=== PATIENT | female | born 1935 | race Caucasian/White ===

== ENCOUNTER → 2022-03-26 | Outpatient (CLI) | payer MEDICARE ==
[2022-03-26 10:08] LABS: African American GFR (CKD) >90 (>60 ml/min/1.73 sqM); Blood Urea Nitrogen 19 mg/dL (7-17); Non-African American GFR(CKD) 86 (>60 ml/min/1.73 sqM)
--- NOTE | 2022-03-26 11:42 | CT ---
EXAMINATION TYPE: CT urogram wo/w con CT DLP: 1294.1 mGycm, Automated exposure control for dose reduction was used. DATE OF EXAM: 03/26/2022 11:36 AM COMPARISON: None CLINICAL INDICATION:Female, 86 years old with history of R31.0 HEMATURIA; TECHNIQUE: Urogram with imaging of the abdomen and pelvis. Coronal and sagittal reformats were performed. 2D and 3D reconstructions are performed to assist visualization of the urinary tract on a separate workstat ion. Contrast used:100ml mL of Isovue 300 with IV Contrast, Oral contrast used: None. FINDINGS: GENITOURINARY: RIGHT KIDNEY AND URETER: No calculi. No hydronephrosis or hydroureter. No renal mass or other lesions . No urothelial lesions: no filling defect, dilation, stricture or wall thickening. LEFT KIDNEY AND URETER: No calculi. No hydronephrosis or hydroureter. No renal mass or other lesions. No urothelial lesions: no filling defect, dilation, stricture or wall thickening. URINARY BLADDER: There is downward shift of the urinary bladder through the pelvic floor. REPRODUCTIVE: Unremarkable. ABDOMEN LIVER: Scattered low-density areas likely representing cysts. GALLBLADDER AND BILE DUCTS: The gallbladder surgically absent. PANCREAS: Unremarkable. SPLEEN: Unremarkable. ADRENAL GLANDS: Unremarkable. STOMACH AND BOWEL: No evidence of bowel obstruction. Scattered clonic diverticula are present. PERITONEUM: No evidence of pneumoperitoneum, free fluid, or adenopathy. The pelvic floor demonstrate s laxity on sagittal imaging with the bladder extending below the pubococcygeal line approximately 1. 5 cm . VASCULATURE: No aortic aneurysm. Atherosclerosis of the arterial vasculature. MUSCULOSKELETAL: No acute osseous abnormalities. SOFT TISSUE/ABDOMINAL WALL: Unremarkable. LOWER CHEST: Streaky atelectasis seen within the lung bases. The heart is moderately enlarged for siz e with coronary artery atherosclerosis. IMPRESSION: 1. No evidence of urolithiasis or renal/urothelial neoplasm. 2. Pelvic floor laxity with bladder extending 1.5 cm below the pubococcygeal line. 3. Colonic diverticulosis. 4. Moderate atherosclerosis of the arterial vasculature.
== END | disposition home or self-care (01) ==
LOC: RADCTMAIN 09:24
PROVIDERS: ATTEND Urology
DX: I25.10 Atherosclerotic heart disease of native coronary artery without angina pectoris (principal); K57.30 Diverticulosis of large intestine without perforation or abscess without bleeding
CPT/HCPCS: 82565; 84520; 74178; 36415; 74400; Q9967

== ENCOUNTER 2022-04-24 16:06 | Emergency (ER) | payer MEDICARE ==
[2022-04-24 16:16] VITALS: RESP 18; TEMP 98.1
--- NOTE | 2022-04-24 16:56 | ED ---
General Adult HPI - General Chief complaint: GI Bleed Stated complaint: Weakness, SOB Time Seen by Provider: 04/24/22 16:13 Source: EMS Mode of arrival: EMS Limitations: no limitations - History of Present Illness Initial comments: This is an 86-year-old female with past medical history including a tractor fibrillation and [place] presents emergency department after a significant bloody bowel movement. The patient stated that she was walking around the hospital earlier today without any problems but went home answered to feel weak and had the sensation of going to the bathroom. The patient was weak to the point where she had to sit down and on the floor, the patient had a large bloody bowel movement. The patient was able to stand up secondary to weakness. The patient denied any lightheadedness or dizziness. The patient did state that she has had intermittent drops of blood in the toilet bowl since started [place] after previous CVA but stated that she did not have any large bowel movement. The patient did not complete of any other acute pain or complaints at this time and was resting in bed comfortably. - Related Data Home Medications Medication Instructions Recorded Confirmed Acetaminophen Tab [Tylenol] 325 mg PO Q6H PRN 04/24/22 04/24/22 Apixaban [Eliquis] 5 mg PO BID 04/24/22 04/24/22 Aspirin EC [Ecotrin Low Dose] 81 mg PO HS 04/24/22 04/24/22 Atorvastatin Calcium [Lipitor] 80 mg PO HS 04/24/22 04/24/22 Baclofen [Lioresal] 10 mg PO HS 04/24/22 04/24/22 Cyanocobalamin (Vitamin B-12) 1,000 mcg PO DAILY@1200 04/24/22 04/24/22 [Vitamin B-12] Donepezil [Aricept] 10 mg PO DAILY 04/24/22 04/24/22 Gabapentin [Neurontin] 100 mg PO BID 04/24/22 04/24/22 Hydrocortisone Cream 1 applic TOPICAL QID PRN 04/24/22 04/24/22 [Hydrocortisone 2.5% Cream] Levothyroxine Sodium [Synthroid] 50 mcg PO DAILY 04/24/22 04/24/22 Melatonin 3 mg PO HS 04/24/22 04/24/22 Metoprolol Tartrate [Lopressor] 50 mg PO BID 04/24/22 04/24/22 Mirabegron [Myrbetriq] 50 mg PO DAILY@1200 04/24/22 04/24/22 Sertraline [Zoloft] 25 mg PO DAILY 04/24/22 04/24/22 amLODIPine [Norvasc] 2.5 mg PO DAILY 04/24/22 04/24/22 lisinopriL [Zestril] 20 mg PO BID 04/24/22 04/24/22 metFORMIN HCL 1,000 mg PO BID-W/MEALS 04/24/22 04/24/22 Allergies Allergy/AdvReac Type Severity Reaction Status Date / Time No Known Allergies Allergy Verified 04/24/22 17:08 Review of Systems ROS Statement: Those systems with pertinent positive or pertinent negative responses have been documented in the HPI. ROS Other: All systems not noted in ROS Statement are negative. Past Medical History Past Medical History: CVA/TIA, Diabetes Mellitus, Hypertension, Thyroid Disorder Past Surgical History: No Surgical Hx Reported Smoking Status: Never smoker Past Alcohol Use History: None Reported Past Drug Use History: None Reported General Exam Limitations: no limitations General appearance: alert, in no apparent distress Head exam: Present: atraumatic, normocephalic Eye exam: Present: normal appearance, PERRL Pupils: Present: normal accommodation ENT exam: Present: normal exam, normal oropharynx, mucous membranes moist Neck exam: Present: normal inspection, full ROM Respiratory exam: Present: normal lung sounds bilaterally Cardiovascular Exam: Present: regular rate, normal rhythm, normal heart sounds GI/Abdominal exam: Present: soft, normal bowel sounds Rectal exam: Present: heme (+) stool Extremities exam: Present: normal inspection, full ROM Back exam: Present: normal inspection, full ROM Neurological exam: Present: alert, oriented X3, CN II-XII intact Psychiatric exam: Present: normal affect, normal mood Skin exam: Present: warm, dry Course Vital Signs 04/24/22 04/24/22 04/24/22 16:12 16:14 17:00 Temperature 98.1 F Pulse Rate 71 65 Respiratory 18 18 20 Rate Blood Pressure 127/67 127/67 123/61 O2 Sat by Pulse 94 L 94 L 96 Oximetry 04/24/22 18:00 Temperature Pulse Rate 69 Respiratory 18 Rate Blood Pressure 139/74 O2 Sat by Pulse 96 Oximetry EKG Findings - EKG Comments: EKG Findings:: An EKG was obtained and read by myself. This EKG showed a rate of 67, CT interval 164, QRS duration 137 and QTC of 488. This EKG showed a sinus rhythm with a right bundle branch block. There was some minor, less than 1 mm depression noted in V4 and V5 however denied any reciprocal changes noted. There were no ST segment elevations noted either. Medical Decision Making - Medical Decision Making The patient was seen and evaluated emergency department. Physical exam, the patient was resting in bed without any acute distress. Vital signs admission were stable and within normal limits. Laboratory workup was obtained that showed a stable hemoglobin. The remainder of the laboratory workup was within normal limits. The patient did have a large bloody bowel movement in the emergency department. Due to the patient having multiple large bloody bowel movements in the setting of a lower GI bleed with our request, the patient will require further treatment and evaluation by Neurology. Currently There is no GI On-Call and We Could Not Accept the Patient for Admission Here. The Patient's Family Did Request to Be Transferred to [facility]. The patient did require a COVID-19 test prior to transfer. The patient remained stable without any other acute pain or distress. It took several hours to obtain a callback from the [facility] transfer line and there was a bed that was found. The accepting physician, Dr. Hazel was contacted at 2022, however a bed was not established and accepted until be COVID-19 test was back which was at 2129. The patient was accepted for a direct admission to the hospital and did not require to be transferred to the emergency department at this time. The family was made aware of this and was agreeable to this plan. The patient was transferred via EMS in stable condition for her lower GI bleed. - Lab Data Result diagrams: 04/24/22 16:50 04/24/22 16:50 Lab Results 04/24/22 04/24/22 04/24/22 Range/Units 16:30 16:45 16:50 WBC 8.2 (3.8-10.6) k/uL RBC 4.26 (3.80-5.40) m/uL Hgb 12.7 (11.4-16.0) gm/dL Hct 37.6 (34.0-46.0) % MCV 88.2 (80.0-100.0) fL MCH 29.7 (25.0-35.0) pg MCHC 33.7 (31.0-37.0) g/dL RDW 13.9 (11.5-15.5) % Plt Count 243 (150-450) k/uL MPV 7.9 Neutrophils % 68 % Lymphocytes % 24 % Monocytes % 5 % Eosinophils % 1 % Basophils % 0 % Neutrophils # 5.6 (1.3-7.7) k/uL Lymphocytes # 2.0 (1.0-4.8) k/uL Monocytes # 0.4 (0-1.0) k/uL Eosinophils # 0.1 (0-0.7) k/uL Basophils # 0.0 (0-0.2) k/uL Sodium (137-145) mmol/L Potassium (3.5-5.1) mmol/L Chloride (98-107) mmol/L Carbon Dioxide (22-30) mmol/L Anion Gap mmol/L BUN (7-17) mg/dL Creatinine (0.52-1.04) mg/dL Est GFR (CKD-EPI)AfAm (>60 ml/min/1.73 sqM) Est GFR (CKD-EPI)NonAf (>60 ml/min/1.73 sqM) Glucose (74-99) mg/dL Calcium (8.4-10.2) mg/dL Magnesium (1.6-2.3) mg/dL Total Bilirubin (0.2-1.3) mg/dL AST (14-36) U/L ALT (4-34) U/L Alkaline Phosphatase (38-126) U/L Troponin I (0.000-0.034) ng/mL NT-Pro-B Natriuret Pep pg/mL Total Protein (6.3-8.2) g/dL Albumin (3.5-5.0) g/dL Lipase (23-300) U/L Stool Occult Blood (Negative) Coronavirus (PCR) (Not Detectd) Blood Type O Positive Blood Type Confirm O Positive Blood Type Recheck No Previous Record Bld Type Recheck Status CABO Indicated Antibody Screen NEGATIVE Spec Expiration Date 04/27/2022 - 234404/24/22 04/24/22 04/24/22 Range/Units 16:50 16:50 16:50 WBC (3.8-10.6) k/uL RBC (3.80-5.40) m/uL Hgb (11.4-16.0) gm/dL Hct (34.0-46.0) % MCV (80.0-100.0) fL MCH (25.0-35.0) pg MCHC (31.0-37.0) g/dL RDW (11.5-15.5) % Plt Count (150-450) k/uL MPV Neutrophils % % Lymphocytes % % Monocytes % % Eosinophils % % Basophils % % Neutrophils # (1.3-7.7) k/uL Lymphocytes # (1.0-4.8) k/uL Monocytes # (0-1.0) k/uL Eosinophils # (0-0.7) k/uL Basophils # (0-0.2) k/uL Sodium 136 L (137-145) mmol/L Potassium 3.9 (3.5-5.1) mmol/L Chloride 101 (98-107) mmol/L Carbon Dioxide 25 (22-30) mmol/L Anion Gap 10 mmol/L BUN 19 H (7-17) mg/dL Creatinine 0.62 (0.52-1.04) mg/dL Est GFR (CKD-EPI)AfAm >90 (>60 ml/min/1.73 sqM) Est GFR (CKD-EPI)NonAf 82 (>60 ml/min/1.73 sqM) Glucose 312 H (74-99) mg/dL Calcium 8.9 (8.4-10.2) mg/dL Magnesium 1.3 L (1.6-2.3) mg/dL Total Bilirubin 0.5 (0.2-1.3) mg/dL AST 16 (14-36) U/L ALT 17 (4-34) U/L Alkaline Phosphatase 97 (38-126) U/L Troponin I <0.012 (0.000-0.034) ng/mL NT-Pro-B Natriuret Pep 99 pg/mL Total Protein 5.9 L (6.3-8.2) g/dL Albumin 3.8 (3.5-5.0) g/dL Lipase 60 (23-300) U/L Stool Occult Blood (Negative) Coronavirus (PCR) (Not Detectd) Blood Type Blood Type Confirm Blood Type Recheck Bld Type Recheck Status Antibody Screen Spec Expiration Date 04/24/22 04/24/22 Range/Units 18:45 20:05 WBC (3.8-10.6) k/uL RBC (3.80-5.40) m/uL Hgb (11.4-16.0) gm/dL Hct (34.0-46.0) % MCV (80.0-100.0) fL MCH (25.0-35.0) pg MCHC (31.0-37.0) g/dL RDW (11.5-15.5) % Plt Count (150-450) k/uL MPV Neutrophils % % Lymphocytes % % Monocytes % % Eosinophils % % Basophils % % Neutrophils # (1.3-7.7) k/uL Lymphocytes # (1.0-4.8) k/uL Monocytes # (0-1.0) k/uL Eosinophils # (0-0.7) k/uL Basophils # (0-0.2) k/uL Sodium (137-145) mmol/L Potassium (3.5-5.1) mmol/L Chloride (98-107) mmol/L Carbon Dioxide (22-30) mmol/L Anion Gap mmol/L BUN (7-17) mg/dL Creatinine (0.52-1.04) mg/dL Est GFR (CKD-EPI)AfAm (>60 ml/min/1.73 sqM) Est GFR (CKD-EPI)NonAf (>60 ml/min/1.73 sqM) Glucose (74-99) mg/dL Calcium (8.4-10.2) mg/dL Magnesium (1.6-2.3) mg/dL Total Bilirubin (0.2-1.3) mg/dL AST (14-36) U/L ALT (4-34) U/L Alkaline Phosphatase (38-126) U/L Troponin I (0.000-0.034) ng/mL NT-Pro-B Natriuret Pep pg/mL Total Protein (6.3-8.2) g/dL Albumin (3.5-5.0) g/dL Lipase (23-300) U/L Stool Occult Blood Positive H (Negative) Coronavirus (PCR) Not Detected (Not Detectd) Blood Type Blood Type Confirm Blood Type Recheck Bld Type Recheck Status Antibody Screen Spec Expiration Date Critical Care Time Critical Care Time: Yes Total Critical Care Time: 32 Disposition Clinical Impression: Lower gastrointestinal bleed Disposition: OTHER INSTITUTION NOT DEFINED Condition: Stable Instructions (If sedation given, give patient instructions): Gastrointestinal Bleeding (ED) Is patient prescribed a controlled substance at d/c from ED?: No Referrals: Tristin Brennan MD [Primary Care Provider] - 1-2 days Time of Disposition: 21:30 - Out of Hospital Transfer - Req. Specs Out of Hospital Transfer - Requested Specifics: Other Non-Acute ([facility], Room # 443)
[2022-04-24 17:06] LABS: Basophils % (A) 0 %; Eosinophils # (A) 0.1 k/uL (0-0.7); Eosinophils % (A) 1 %; HCT 37.6 % (34.0-46.0); HGB 12.7 gm/dL (11.4-16.0); Lymphocytes % (A) 24 %; MCH 29.7 pg (25.0-35.0); MCHC 33.7 g/dL (31.0-37.0); MCV 88.2 fL (80.0-100.0); Mean Platelet Volume 7.9; Monocytes # (A) 0.4 k/uL (0-1.0); Monocytes % (A) 5 %; Neutrophils # (A) 5.6 k/uL (1.3-7.7); Neutrophils % (A) 68 %; Platelet Count 243 k/uL (150-450); RBC 4.26 m/uL (3.80-5.40); RDW 13.9 % (11.5-15.5); WBC 8.2 k/uL (3.8-10.6)
--- NOTE | 2022-04-24 17:07 | XR ---
EXAMINATION TYPE: XR chest 2V DATE OF EXAM: 04/24/2022 COMPARISON: 02/11/2010 HISTORY: Weakness. Short of breath TECHNIQUE: FINDINGS: There is no heart failure nor confluent pneumonic infiltrate. Costophrenic angles are clear . There are chest leads. Thoracic aorta is atheromatous. Bony thorax is intact. IMPRESSION: No active cardiopulmonary disease. Normal heart. No adverse change.
[2022-04-24 17:17] LABS: ALT 17 U/L (4-34); AST 16 U/L (14-36); African American GFR (CKD) >90 (>60 ml/min/1.73 sqM); Albumin 3.8 g/dL (3.5-5.0); Alkaline Phosphatase 97 U/L (38-126); Anion Gap 10 mmol/L; Blood Urea Nitrogen 19 mg/dL (7-17); Calcium 8.9 mg/dL (8.4-10.2); Carbon Dioxide 25 mmol/L (22-30); Chloride 101 mmol/L (98-107); Glucose 312 mg/dL (74-99); Lipase 60 U/L (23-300); Magnesium 1.3 mg/dL (1.6-2.3); Non-African American GFR(CKD) 82 (>60 ml/min/1.73 sqM); Potassium 3.9 mmol/L (3.5-5.1); Sodium 136 mmol/L (137-145); Total Bilirubin 0.5 mg/dL (0.2-1.3); Total Protein 5.9 g/dL (6.3-8.2)
--- NOTE | 2022-04-24 18:13 | CT ---
EXAMINATION TYPE: CT abdomen pelvis w con DATE OF EXAM: 04/24/2022 COMPARISON: 03/26/2022 HISTORY: general abd pain CT DLP: 744 mGycm Automated exposure control for dose reduction was used. CONTRAST: Performed with IV Contrast, patient injected with 100ml mL of Isovue 300. There are some patchy atelectasis at the lung bases. There are clips at the gastroesophageal junction . Heart appears enlarged. No pericardial effusion. No pleural effusion. There are multiple small hepa tic cysts that measure up to 1 cm. Spleen is intact. The bile ducts are not dilated. There are clips from cholecystectomy. No evidence of pancreatic mass. No evidence of a gastric mass. There is no adrenal mass. Kidneys of normal size and contour. There is normal contrast opacification of the kidneys. No hydronephrosis. Ureters are not dilated. Delayed images show normal renal excretio n. Abdominal aorta is atheromatous. There is no retroperitoneal adenopathy. Bladder distends smoothly . There is a pessary in the vagina. No inguinal hernia. No free fluid in the pelvis. No evidence of a pelvic mass. The lumbar vertebrae have normal alignment. There is vacuum disc from L2 to S1 with disc space narrow ing. No compression fracture. Bony pelvis is intact. The hip joints are intact. There is hypertrophic acetabular spurring. Sacroiliac joints are intact. Appendix not well seen. No sign of thickened appe ndix. There is no mesenteric edema. No ascites or free air. No sign of a bowel obstruction. IMPRESSION: No acute abnormality of the abdomen and pelvis. There is some mild interstitial density and atelectas is at the lung bases which is slightly increased compared to old exam.
[2022-04-24] MEDS: MAGNESIUM SULFATE-D5W PMX 1 GM in DEXTROSE/WATER 1 100ML.BAG IVPB SCH ×2 (19:26→20:51)
[2022-04-24 22:02] VITALS: BP 156/98; PULSE 70
== END 2022-04-24 22:00 | disposition other institution (70) ==
LOC: EC 16:06
DX: K92.2 Gastrointestinal hemorrhage, unspecified (principal); E11.9 Type 2 diabetes mellitus without complications; I10 Essential (primary) hypertension; E07.9 Disorder of thyroid, unspecified; Z79.82 Long term (current) use of aspirin; Z79.899 Other long term (current) drug therapy; Z79.890 Hormone replacement therapy; Z20.822 Contact with and (suspected) exposure to COVID-19; Z79.01 Long term (current) use of anticoagulants; Z86.73 Personal history of transient ischemic attack (TIA), and cerebral infarction without residual deficits
CPT/HCPCS: 99291; 96365; 36415; 93005; 86900; 86901; 83880; 80053; 83690; 83735; 84484; 85025; 86850; 82272; 87635; 71046; 74177; 96366; J3475; Q9967

== ENCOUNTER 2022-05-03 10:20 | Emergency (ER) | payer MEDICARE ==
--- NOTE | 2022-05-03 10:39 | ED ---
General Adult HPI - General Chief complaint: Altered Mental Status Stated complaint: lab recheck Time Seen by Provider: 05/03/22 10:20 Source: patient, family, EMS, RN notes reviewed, old records reviewed Mode of arrival: EMS Limitations: altered mental status - History of Present Illness Initial comments: This is an 86-year-old female presents emergency department because she had decreased responsiveness at home. According to EMS patient's at 69 years on Tuesday and she has this today. According to EMS patient would not answer or follow any commands even though the patient one time stated she didn't want to come and they felt out. Bring her in because they were not sure if she was altered not. Patient is able to answer my question very reluctantly and she states she does not want to be here. Patient denies any complaints and she states no one can help her because she wants to be with Bill which I assume is her . Patient denies chest pain or difficulty breathing patient denies fever patient denies cough patient denies any abdominal pain patient denies nausea vomiting diarrhea. - Related Data Home Medications Medication Instructions Recorded Confirmed Acetaminophen Tab [Tylenol] 325 mg PO Q6H PRN 04/24/22 04/24/22 Apixaban [Eliquis] 5 mg PO BID 04/24/22 04/24/22 Aspirin EC [Ecotrin Low Dose] 81 mg PO HS 04/24/22 04/24/22 Atorvastatin Calcium [Lipitor] 80 mg PO HS 04/24/22 04/24/22 Baclofen [Lioresal] 10 mg PO HS 04/24/22 04/24/22 Cyanocobalamin (Vitamin B-12) 1,000 mcg PO DAILY@1200 04/24/22 04/24/22 [Vitamin B-12] Donepezil [Aricept] 10 mg PO DAILY 04/24/22 04/24/22 Gabapentin [Neurontin] 100 mg PO BID 04/24/22 04/24/22 Hydrocortisone Cream 1 applic TOPICAL QID PRN 04/24/22 04/24/22 [Hydrocortisone 2.5% Cream] Levothyroxine Sodium [Synthroid] 50 mcg PO DAILY 04/24/22 04/24/22 Melatonin 3 mg PO HS 04/24/22 04/24/22 Metoprolol Tartrate [Lopressor] 50 mg PO BID 04/24/22 04/24/22 Mirabegron [Myrbetriq] 50 mg PO DAILY@1200 04/24/22 04/24/22 Sertraline [Zoloft] 25 mg PO DAILY 04/24/22 04/24/22 amLODIPine [Norvasc] 2.5 mg PO DAILY 04/24/22 04/24/22 lisinopriL [Zestril] 20 mg PO BID 04/24/22 04/24/22 metFORMIN HCL 1,000 mg PO BID-W/MEALS 04/24/22 04/24/22 Allergies Allergy/AdvReac Type Severity Reaction Status Date / Time No Known Allergies Allergy Verified 04/24/22 17:08 Review of Systems ROS Statement: Those systems with pertinent positive or pertinent negative responses have been documented in the HPI. ROS Other: All systems not noted in ROS Statement are negative. Past Medical History Past Medical History: CVA/TIA, Diabetes Mellitus, Hypertension, Thyroid Disorder History of Any Multi-Drug Resistant Organisms: None Reported Past Surgical History: No Surgical Hx Reported Past Psychological History: No Psychological Hx Reported Smoking Status: Never smoker Past Alcohol Use History: None Reported Past Drug Use History: None Reported General Exam - General Exam Comments Initial Comments: GENERAL: Patient is well-developed and well-nourished. Patient is nontoxic and well- hydrated and is in mild distress. ENT: Neck is soft and supple. No significant lymphadenopathy is noted. Oropharynx is clear. Moist mucous membranes. Neck has full range of motion without eliciting any pain. EYES: The sclera were anicteric and conjunctiva were pink and moist. Extraocular movements were intact and pupils were equal round and reactive to light. Eyelids were unremarkable. PULMONARY: Unlabored respirations. Good breath sounds bilaterally. No audible rales rhonchi or wheezing was noted. CARDIOVASCULAR: There is a regular rate and rhythm without any murmurs gallops or rubs. ABDOMEN: Soft and nontender with normal bowel sounds. SKIN: Skin is clear with no lesions or rashes and otherwise unremarkable. NEUROLOGIC: Patient is alert and oriented x3. Cranial nerves II through XII are grossly intact. Motor and sensory are also intact. Normal speech, volume and content. Symmetrical smile. MUSCULOSKELETAL: Normal extremities with adequate strength and full range of motion. LYMPHATICS: No significant lymphadenopathy is noted PSYCHIATRIC: Patient is very depressed and states that no one can help her she just wants to be with Bill Limitations: altered mental status Course Vital Signs 05/03/22 10:24 Temperature 98.1 F Pulse Rate 75 Respiratory 18 Rate Blood Pressure 183/92 O2 Sat by Pulse 97 Oximetry Medical Decision Making - Medical Decision Making CT of the brain was interpreted by me. CT of the brain shows no acute abnormality. EKG was interpreted by me. It shows a sinus rhythm at 74 bpm [place] interval is on a 74 QRS is 157 QT interval 448 QTC is 476 per patient's EKG shows no ST segment elevation or depression. Patient has a right bundle branch block. I will back into the room patient was back to her baseline according to family. She only complained of a headache. Patient's family is aware of her anemia and they are following up. - Lab Data Result diagrams: 05/03/22 10:50 05/03/22 10:50 Lab Results 05/03/22 05/03/22 Range/Units 10:50 10:50 WBC 7.0 (3.8-10.6) k/uL RBC 3.31 L (3.80-5.40) m/uL Hgb 9.4 L D (11.4-16.0) gm/dL Hct 28.6 L (34.0-46.0) % MCV 86.2 (80.0-100.0) fL MCH 28.4 (25.0-35.0) pg MCHC 33.0 (31.0-37.0) g/dL RDW 14.2 (11.5-15.5) % Plt Count 318 (150-450) k/uL MPV 7.5 Neutrophils % 70 % Lymphocytes % 22 % Monocytes % 5 % Eosinophils % 1 % Basophils % 0 % Neutrophils # 4.9 (1.3-7.7) k/uL Lymphocytes # 1.5 (1.0-4.8) k/uL Monocytes # 0.3 (0-1.0) k/uL Eosinophils # 0.1 (0-0.7) k/uL Basophils # 0.0 (0-0.2) k/uL Hypochromasia Slight Poikilocytosis Slight Sodium 137 (137-145) mmol/L Potassium 3.6 (3.5-5.1) mmol/L Chloride 104 (98-107) mmol/L Carbon Dioxide 30 (22-30) mmol/L Anion Gap 3 mmol/L BUN 11 (7-17) mg/dL Creatinine 0.49 L (0.52-1.04) mg/dL Est GFR (CKD-EPI)AfAm >90 (>60 ml/min/1.73 sqM) Est GFR (CKD-EPI)NonAf 88 (>60 ml/min/1.73 sqM) Glucose 157 H (74-99) mg/dL Calcium 8.8 (8.4-10.2) mg/dL Total Bilirubin 0.4 (0.2-1.3) mg/dL AST 17 (14-36) U/L ALT 14 (4-34) U/L Alkaline Phosphatase 105 (38-126) U/L Total Protein 6.0 L (6.3-8.2) g/dL Albumin 3.6 (3.5-5.0) g/dL Disposition Clinical Impression: Situational depression, Anemia, Cephalgia Disposition: HOME SELF-CARE Condition: Good Instructions (If sedation given, give patient instructions): Depression (ED) Is patient prescribed a controlled substance at d/c from ED?: No Referrals: Tristin Brennan MD [Primary Care Provider] - 1-2 days Time of Disposition: 12:00
[2022-05-03 11:08] LABS: Basophils % (A) 0 %; Eosinophils # (A) 0.1 k/uL (0-0.7); Eosinophils % (A) 1 %; HCT 28.6 % (34.0-46.0); Hypochromasia Slight; Lymphocytes # (A) 1.5 k/uL (1.0-4.8); Lymphocytes % (A) 22 %; MCH 28.4 pg (25.0-35.0); MCV 86.2 fL (80.0-100.0); Mean Platelet Volume 7.5; Monocytes # (A) 0.3 k/uL (0-1.0); Monocytes % (A) 5 %; Neutrophils # (A) 4.9 k/uL (1.3-7.7); Neutrophils % (A) 70 %; Platelet Count 318 k/uL (150-450); Poikilocytosis Slight; RBC 3.31 m/uL (3.80-5.40); RDW 14.2 % (11.5-15.5)
[2022-05-03 11:09] LABS: HGB 9.4 gm/dL (11.4-16.0)
[2022-05-03 11:11] LABS: ALT 14 U/L (4-34); AST 17 U/L (14-36); African American GFR (CKD) >90 (>60 ml/min/1.73 sqM); Albumin 3.6 g/dL (3.5-5.0); Alkaline Phosphatase 105 U/L (38-126); Anion Gap 3 mmol/L; Blood Urea Nitrogen 11 mg/dL (7-17); Calcium 8.8 mg/dL (8.4-10.2); Carbon Dioxide 30 mmol/L (22-30); Chloride 104 mmol/L (98-107); Glucose 157 mg/dL (74-99); Non-African American GFR(CKD) 88 (>60 ml/min/1.73 sqM); Potassium 3.6 mmol/L (3.5-5.1); Sodium 137 mmol/L (137-145); Total Bilirubin 0.4 mg/dL (0.2-1.3)
--- NOTE | 2022-05-03 11:27 | CT ---
EXAMINATION TYPE: CT brain wo con DATE OF EXAM: 05/03/2022 COMPARISON: None HISTORY: Altered mental status CT DLP: 1188.6 mGycm Automated exposure control for dose reduction was used. FINDINGS: Intracranial atherosclerotic changes. There is moderate generalized degenerative change. Diffuse low attenuation in the white matter is nonspecific but most typical remote white matter ischemia. More fo janae area seen in the right frontal parietal white matter. No acute hemorrhage or mass effect. No midl ine shift. Calvarium is intact with hyperostosis of the frontal bone. Craniocervical junction maintained. Partia lly empty sella turcica. Orbits are symmetric. Sinuses are clear. IMPRESSION: DEGENERATIVE AND NONSPECIFIC WHITE MATTER CHANGE WITH NO EVIDENCE OF ACUTE ISCHEMIA OR MASS EFFECT.
[2022-05-03] MEDS ORDERED: ACETAMINOPHEN TAB 500 MG TAB PO STA (12:09)
[2022-05-03 12:40] VITALS: BP 142/78; PULSE 78; RESP 20; TEMP 97.8
== END 2022-05-03 12:39 | disposition home or self-care (01) ==
LOC: EC 10:20
DX: F43.21 Adjustment disorder with depressed mood (principal); D64.9 Anemia, unspecified; R51.9 Headache, unspecified; Z86.73 Personal history of transient ischemic attack (TIA), and cerebral infarction without residual deficits; E11.9 Type 2 diabetes mellitus without complications; I10 Essential (primary) hypertension; E07.9 Disorder of thyroid, unspecified; Z79.82 Long term (current) use of aspirin; Z79.890 Hormone replacement therapy; Z79.84 Long term (current) use of oral hypoglycemic drugs; Z79.899 Other long term (current) drug therapy
CPT/HCPCS: 36415; 70450; 80053; 85025; 93005; 99285

== ENCOUNTER → 2022-08-20 | Outpatient (CLI) | payer MEDICARE ==
[2022-08-20 10:54] LABS: Chol/HDL Ratio 1.97 Ratio; LDL Cholesterol,Calculated 35.9 mg/dL (0.0-131.0); VLDL Calculation 18.34 mg/dL (5.00-40.00)
[2022-08-20 10:55] LABS: ALT 13 U/L (8-44); AST 12 U/L (13-35); African American GFR (CKD) 92.4 (60.0-200.0); Albumin 4.4 g/dL (3.8-4.9); Albumin/Globulin Ratio 1.83 (1.60-3.17); Alkaline Phosphatase 118 U/L (41-126); BUN/Creat Ratio 30.67 Ratio (12.00-20.00); Blood Urea Nitrogen 19.6 mg/dL (9.0-27.0); Carbon Dioxide 25.7 mmol/L (20.0-27.5); Chloride 101 mmol/L (96-109); Globulin 2.4 g/dL (1.6-3.3); Glucose 161 mg/dL (70-110); Non-African American GFR(CKD) 79.7 (60.0-200.0); Potassium 4.4 mmol/L (3.5-5.5); Sodium 139 mmol/L (135-145); Total Protein 6.8 g/dL (6.2-8.2)
== END | disposition home or self-care (01) ==
LOC: LABWHC1 07:31
PROVIDERS: ATTEND Nurse Practitioner Adult Health
DX: I10 Essential (primary) hypertension (principal); E78.2 Mixed hyperlipidemia
CPT/HCPCS: 36415; 80053; 80061

== ENCOUNTER 2022-10-13 07:04 | Inpatient (IN) | payer MEDICARE ==
[2022-10-13] MEDS ORDERED: ACETAMINOPHEN TAB 500 MG TAB PO STA (07:24)
[2022-10-13] MEDS ORDERED: SODIUM CHLORIDE 0.9% 1,000 ML IV STA ×2 (07:24)
[2022-10-13 07:46] LABS: Anisocytosis Moderate; Basophils % (A) 0 %; Eosinophils % (A) 0 %; HCT 26.1 % (34.0-46.0); HGB 7.7 gm/dL (11.4-16.0); Hypochromasia Marked; Lymphocytes % (A) 13 %; MCH 17.7 pg (25.0-35.0); MCHC 29.6 g/dL (31.0-37.0); MCV 59.9 fL (80.0-100.0); Mean Platelet Volume 6.7; Microcytosis Marked; Monocytes # (A) 0.5 k/uL (0-1.0); Monocytes % (A) 7 %; Neutrophils % (A) 77 %; Platelet Count 278 k/uL (150-450); Poikilocytosis Moderate; RBC 4.35 m/uL (3.80-5.40); RDW 20.5 % (11.5-15.5); WBC 7.7 k/uL (3.8-10.6)
[2022-10-13 07:56] LABS: Partial Thromboplastin Time 24.7 sec (22.0-30.0); Prothrombin Time 10.6 sec (9.0-12.0)
--- NOTE | 2022-10-13 07:57 | ED ---
Weakness HPI - General Chief complaint: Weakness Stated complaint: Weakness Time Seen by Provider: 10/13/22 07:15 Source: EMS Mode of arrival: EMS Limitations: no limitations - History of Present Illness Initial comments: 87-year-old female with past medical history of CVA, diabetes, hypertension and presents emergency Department with weakness. EMS provided majority of the history as the patient is a poor historian. Her son called EMS for weakness. States that she was having difficulty getting out of bed. Patient is fairly independent aside from her history of dementia. She has been coughing. Patient was found to have a fever of 101 by EMS. She has not taken anything for the fever as of yet. She is been coughing. Son has been having congestion. No nausea or vomiting. Continues to eat and drink without difficulty. No diarr hea. No black or bloody stools. No urinary complaints. She denies any chest pain. No other alleviating, precipitating or modifying factors - Related Data Home Medications Medication Instructions Recorded Confirmed Apixaban [Eliquis] 5 mg PO BID-W/MEALS 04/24/22 10/13/22 Baclofen [Lioresal] 10 mg PO HS 04/24/22 10/13/22 Cyanocobalamin (Vitamin B-12) 1,000 mcg PO DAILY@1200 04/24/22 10/13/22 [Vitamin B-12] Gabapentin [Neurontin] 100 mg PO BID-W/MEALS 04/24/22 10/13/22 Levothyroxine Sodium [Synthroid] 50 mcg PO AC-BRKFST 04/24/22 10/13/22 Melatonin 3 mg PO HS 04/24/22 10/13/22 Mirabegron [Myrbetriq] 50 mg PO DAILY@1200 04/24/22 10/13/22 Sertraline [Zoloft] 25 mg PO DAILY 04/24/22 10/13/22 Atorvastatin [Lipitor] 40 mg PO HS 10/13/22 10/13/22 Famotidine [Pepcid] 20 mg PO DAILY PRN 10/13/22 10/13/22 Metoprolol Tartrate [Lopressor] 25 mg PO BID 10/13/22 10/13/22 Sennosides [Senokot] 17.2 mg PO DAILY PRN 10/13/22 10/13/22 lisinopriL [Zestril] 5 mg PO DAILY 10/13/22 10/13/22 metFORMIN HCL 500 mg PO AC-BID 10/13/22 10/13/22 Previous Rx's Medication Instructions Recorded Cephalexin [Keflex] 500 mg PO QID #10 cap 10/15/22 Allergies Allergy/AdvReac Type Severity Reaction Status Date / Time No Known Allergies Allergy Verified 10/13/22 08:56 Review of Systems ROS Statement: Those systems with pertinent positive or pertinent negative responses have been documented in the HPI. ROS Other: All systems not noted in ROS Statement are negative. Past Medical History Past Medical History: CVA/TIA, Diabetes Mellitus, Hypertension, Thyroid Disorder History of Any Multi-Drug Resistant Organisms: None Reported Past Surgical History: No Surgical Hx Reported Past Psychological History: No Psychological Hx Reported Smoking Status: Never smoker Past Alcohol Use History: None Reported Past Drug Use History: None Reported General Exam Limitations: no limitations, altered mental status General appearance: alert, in no apparent distress Head exam: Present: atraumatic, normocephalic, normal inspection Eye exam: Present: normal appearance, PERRL, EOMI. Absent: scleral icterus, conjunctival injection, periorbital swelling ENT exam: Present: normal exam, mucous membranes moist Neck exam: Present: normal inspection. Absent: tenderness, meningismus, lymphadenopathy Respiratory exam: Present: normal lung sounds bilaterally. Absent: respiratory distress, wheezes, rales, rhonchi, stridor Cardiovascular Exam: Present: regular rate, normal rhythm, normal heart sounds. Absent: systolic murmur, diastolic murmur, rubs, gallop, clicks GI/Abdominal exam: Present: soft, normal bowel sounds. Absent: distended, tenderness, guarding, rebound, rigid Extremities exam: Present: normal inspection, full ROM, normal capillary refill. Absent: tenderness, pedal edema, joint swelling, calf tenderness Back exam: Present: normal inspection Neurological exam: Present: alert, oriented X3, CN II-XII intact Psychiatric exam: Present: normal affect, normal mood Skin exam: Present: warm, dry, intact, normal color. Absent: rash Course Vital Signs 10/13/22 10/13/22 10/13/22 07:09 08:20 11:00 Temperature 100.7 F H 98.4 F 99.3 F Pulse Rate 81 73 Respiratory 18 17 Rate Blood Pressure 157/76 129/65 O2 Sat by Pulse 91 L 99 Oximetry 10/13/22 12:35 Temperature Pulse Rate 79 Respiratory 18 Rate Blood Pressure 140/67 O2 Sat by Pulse 97 Oximetry EKG Findings - EKG Comments: EKG Findings:: EKG interpreted by me demonstrates sinus rhythm with rate of 89. SD interval 179. QRS 156. QTC 441. Right bundle-branch block. No ST segment elevations or depressions. Medical Decision Making - Medical Decision Making Was pt. sent in by a medical professional or institution ([facility], [facility], urgent care, hospital, or half-way...) When possible be specific @ -No Did you speak to anyone other than the patient for history (EMS, parent, family, police, friend...)? What history was obtained from this source @ -EMS provided history. Also spoke with patients son who states he has had a mild cough Did you review nursing and triage notes (agree or disagree)? Why? @ -I reviewed and agree with nursing and triage notes Were old charts reviewed (outside hosp., previous admission, EMS record, old EKG, old radiological studies, urgent care reports/EKG's, half-way records)? Report findings @ -No old charts were reviewed Differential Diagnosis (chest pain, altered mental status, abdominal pain women, abdominal pain men, vaginal bleeding, weakness, fever, dyspnea, syncope, headache, dizziness, GI bleed, back pain, seizure, CVA, palpatations, mental health, musculoskeletal)? @ -uti, influenza, covid, pneumonia EKG interpreted by me (3pts min.). @ -EKG interpreted by me X-rays interpreted by me (1pt min.). @ -Interpreted by me and negative for acute process CT interpreted by me (1pt min.). @ -None done U/S interpreted by me (1pt. min.). @ -None done What testing was considered but not performed or refused? (CT, X-rays, U/S, labs)? Why? @ -None What meds were considered but not given or refused? Why? @ -None Did you discuss the management of the patient with other professionals (professionals i.e. [facility], [facility], lab, RT, psych nurse, director of social media marketing, flake cutter operator, teacher, general service officer, bottle caser)? Give summary @ -Dicussed care with Dr. Young who will admit the patient Was smoking cessation discussed for >3mins.? @ -No Was critical care preformed (if so, how long)? @ -No Were there social determinants of health that impacted care today? How? (Homelessness, low income, unemployed, alcoholism, drug addiction, transportation, low edu. Level, literacy, decrease access to med. care, assisted, rehab)? @ -No Was there de-escalation of care discussed even if they declined (Discuss DNR or withdrawal of care, Hospice)? DNR status @ -No What co-morbidities impacted this encounter? (DM, HTN, Smoking, COPD, CAD, Cancer, CVA, ARF, Chemo, Hep., AIDS, mental health diagnosis, sleep apnea, morbid obesity)? @ - None Was patient admitted / discharged? Hospital course, mention meds given and route, prescriptions, significant lab abnormalities, going to OR and other pertinent info. @ -Upon arrival patient is placed into room 7. Thorough history and physical exam was performed. IV access established. laboratory studies were conducted. Patient anemic with hemoglobin of 7.7. Patient is positive for covid. Patient is given a dose of Decadron. Urinalysis is positive for nitrites and occasional bacteria and therefore is given a dose of Rocephin. Recommended admission. Spoke with Dr. young who accepted admission for the patient Undiagnosed new problem with uncertain prognosis? @ -Yes Drug Therapy requiring intensive monitoring for toxicity (Heparin, Nitro, Insu aric, Cardizem)? @ -No Were any procedures done? @ -No Diagnosis/symptom? @ -acute pyrexia, acute covid infection, chronic anemia Uncomplicated (without systemic symptoms) or Complicated (systemic symptoms)? @ -complicated Side effects of treatment? @ -No Exacerbation, Progression, or Severe Exacerbation? @ -No Poses a threat to life or bodily function? How? (Chest pain, USA, CT, pneumonia, PE, COPD, DKA, ARF, appy, cholecystitis, CVA, Diverticulitis, Homicidal, Suicid al, threat to staff... and all critical care pts) @ -No - Lab Data Result diagrams: 10/14/22 07:05 10/14/22 07:05 Lab Results 10/13/22 10/13/22 10/13/22 Range/Units 07:27 07:27 07:27 WBC 7.7 (3.8-10.6) k/uL RBC 4.35 (3.80-5.40) m/uL Hgb 7.7 L (11.4-16.0) gm/dL Hct 26.1 L (34.0-46.0) % MCV 59.9 L (80.0-100.0) fL MCH 17.7 L (25.0-35.0) pg MCHC 29.6 L (31.0-37.0) g/dL RDW 20.5 H (11.5-15.5) % Plt Count 278 (150-450) k/uL MPV 6.7 Neutrophils % 77 % Lymphocytes % 13 % Monocytes % 7 % Eosinophils % 0 % Basophils % 0 % Neutrophils # 6.0 (1.3-7.7) k/uL Lymphocytes # 1.0 (1.0-4.8) k/uL Monocytes # 0.5 (0-1.0) k/uL Eosinophils # 0.0 (0-0.7) k/uL Basophils # 0.0 (0-0.2) k/uL Hypochromasia Marked Poikilocytosis Moderate Anisocytosis Moderate Microcytosis Marked PT 10.6 (9.0-12.0) sec INR 1.0 (<1.2) APTT 24.7 (22.0-30.0) sec Sodium (137-145) mmol/L Potassium (3.5-5.1) mmol/L Chloride (98-107) mmol/L Carbon Dioxide (22-30) mmol/L Anion Gap mmol/L BUN (7-17) mg/dL Creatinine (0.52-1.04) mg/dL Est GFR (CKD-EPI)AfAm (>60 ml/min/1.73 sqM) Est GFR (CKD-EPI)NonAf (>60 ml/min/1.73 sqM) Glucose (74-99) mg/dL Plasma Lactic Acid Calvin (0.7-2.0) mmol/L Calcium (8.4-10.2) mg/dL Magnesium (1.6-2.3) mg/dL Iron (50-170) ug/dL TIBC (228-460) ug/dL % Saturation (12.00-45.00) Transferrin (204.0-354.0) mg/dL Ferritin (10.0-291.0) ng/mL Total Bilirubin (0.2-1.3) mg/dL AST (14-36) U/L ALT (4-34) U/L Alkaline Phosphatase (38-126) U/L Troponin I (0.000-0.034) ng/mL NT-Pro-B Natriuret Pep pg/mL Total Protein (6.3-8.2) g/dL Albumin (3.5-5.0) g/dL Urine Color Colorless Urine Appearance Cloudy H (Clear) Urine pH 6.0 (5.0-8.0) Ur Specific [place] 1.002 (1.001-1.035) Urine Protein Negative (Negative) Urine Glucose (UA) Negative (Negative) Urine Ketones Negative (Negative) Urine Blood Negative (Negative) Urine Nitrite Positive H (Negative) Urine Bilirubin Negative (Negative) Urine Urobilinogen <2.0 (<2.0) mg/dL Ur Leukocyte Esterase Trace H (Negative) Urine RBC 1 (0-5) /hpf Urine WBC 2 (0-5) /hpf Ur Squamous Epith Cells <1 (0-4) /hpf Urine Bacteria Occasional H (None) /hpf Urine Mucus Rare H (None) /hpf Influenza Type A (PCR) (Not Detectd) Influenza Type B (PCR) (Not Detectd) RSV (PCR) (Not Detectd) SARS-CoV-2 (PCR) (Not Detectd) 10/13/22 10/13/22 10/13/22 Range/Units 07:27 07:27 07:27 WBC (3.8-10.6) k/uL RBC (3.80-5.40) m/uL Hgb (11.4-16.0) gm/dL Hct (34.0-46.0) % MCV (80.0-100.0) fL MCH (25.0-35.0) pg MCHC (31.0-37.0) g/dL RDW (11.5-15.5) % Plt Count (150-450) k/uL MPV Neutrophils % % Lymphocytes % % Monocytes % % Eosinophils % % Basophils % % Neutrophils # (1.3-7.7) k/uL Lymphocytes # (1.0-4.8) k/uL Monocytes # (0-1.0) k/uL Eosinophils # (0-0.7) k/uL Basophils # (0-0.2) k/uL Hypochromasia Poikilocytosis Anisocytosis Microcytosis PT (9.0-12.0) sec INR (<1.2) APTT (22.0-30.0) sec Sodium 131 L (137-145) mmol/L Potassium 3.8 (3.5-5.1) mmol/L Chloride 95 L (98-107) mmol/L Carbon Dioxide 25 (22-30) mmol/L Anion Gap 11 mmol/L BUN 13 (7-17) mg/dL Creatinine 0.49 L (0.52-1.04) mg/dL Est GFR (CKD-EPI)AfAm >90 (>60 ml/min/1.73 sqM) Est GFR (CKD-EPI)NonAf 87 (>60 ml/min/1.73 sqM) Glucose 159 H (74-99) mg/dL Plasma Lactic Acid Calvin 1.3 (0.7-2.0) mmol/L Calcium 8.8 (8.4-10.2) mg/dL Magnesium 1.1 L (1.6-2.3) mg/dL Iron (50-170) ug/dL TIBC (228-460) ug/dL % Saturation (12.00-45.00) Transferrin (204.0-354.0) mg/dL Ferritin (10.0-291.0) ng/mL Total Bilirubin 0.5 (0.2-1.3) mg/dL AST 23 (14-36) U/L ALT 18 (4-34) U/L Alkaline Phosphatase 96 (38-126) U/L Troponin I <0.012 (0.000-0.034) ng/mL NT-Pro-B Natriuret Pep pg/mL Total Protein 6.1 L (6.3-8.2) g/dL Albumin 3.6 (3.5-5.0) g/dL Urine Color Urine Appearance (Clear) Urine pH (5.0-8.0) Ur Specific [place] (1.001-1.035) Urine Protein (Negative) Urine Glucose (UA) (Negative) Urine Ketones (Negative) Urine Blood (Negative) Urine Nitrite (Negative) Urine Bilirubin (Negative) Urine Urobilinogen (<2.0) mg/dL Ur Leukocyte Esterase (Negative) Urine RBC (0-5) /hpf Urine WBC (0-5) /hpf Ur Squamous Epith Cells (0-4) /hpf Urine Bacteria (None) /hpf Urine Mucus (None) /hpf Influenza Type A (PCR) (Not Detectd) Influenza Type B (PCR) (Not Detectd) RSV (PCR) (Not Detectd) SARS-CoV-2 (PCR) (Not Detectd) 10/13/22 10/13/22 10/13/22 Range/Units 07:27 07:27 07:27 WBC (3.8-10.6) k/uL RBC (3.80-5.40) m/uL Hgb (11.4-16.0) gm/dL Hct (34.0-46.0) % MCV (80.0-100.0) fL MCH (25.0-35.0) pg MCHC (31.0-37.0) g/dL RDW (11.5-15.5) % Plt Count (150-450) k/uL MPV Neutrophils % % Lymphocytes % % Monocytes % % Eosinophils % % Basophils % % Neutrophils # (1.3-7.7) k/uL Lymphocytes # (1.0-4.8) k/uL Monocytes # (0-1.0) k/uL Eosinophils # (0-0.7) k/uL Basophils # (0-0.2) k/uL Hypochromasia Poikilocytosis Anisocytosis Microcytosis PT (9.0-12.0) sec INR (<1.2) APTT (22.0-30.0) sec Sodium (137-145) mmol/L Potassium (3.5-5.1) mmol/L Chloride (98-107) mmol/L Carbon Dioxide (22-30) mmol/L Anion Gap mmol/L BUN (7-17) mg/dL Creatinine (0.52-1.04) mg/dL Est GFR (CKD-EPI)AfAm (>60 ml/min/1.73 sqM) Est GFR (CKD-EPI)NonAf (>60 ml/min/1.73 sqM) Glucose (74-99) mg/dL Plasma Lactic Acid Calvin (0.7-2.0) mmol/L Calcium (8.4-10.2) mg/dL Magnesium (1.6-2.3) mg/dL Iron 15 L (50-170) ug/dL TIBC 480 H (228-460) ug/dL % Saturation 3.17 L (12.00-45.00) Transferrin 343.0 (204.0-354.0) mg/dL Ferritin 9.0 L (10.0-291.0) ng/mL Total Bilirubin (0.2-1.3) mg/dL AST (14-36) U/L ALT (4-34) U/L Alkaline Phosphatase (38-126) U/L Troponin I (0.000-0.034) ng/mL NT-Pro-B Natriuret Pep 271 pg/mL Total Protein (6.3-8.2) g/dL Albumin (3.5-5.0) g/dL Urine Color Urine Appearance (Clear) Urine pH (5.0-8.0) Ur Specific [place] (1.001-1.035) Urine Protein (Negative) Urine Glucose (UA) (Negative) Urine Ketones (Negative) Urine Blood (Negative) Urine Nitrite (Negative) Urine Bilirubin (Negative) Urine Urobilinogen (<2.0) mg/dL Ur Leukocyte Esterase (Negative) Urine RBC (0-5) /hpf Urine WBC (0-5) /hpf Ur Squamous Epith Cells (0-4) /hpf Urine Bacteria (None) /hpf Urine Mucus (None) /hpf Influenza Type A (PCR) Not Detected (Not Detectd) Influenza Type B (PCR) Not Detected (Not Detectd) RSV (PCR) Not Detected (Not Detectd) SARS-CoV-2 (PCR) Detected A (Not Detectd) Disposition Clinical Impression: COVID-19, Weakness, Anemia Disposition: ADMITTED IP TO THIS HOSP Is patient prescribed a controlled substance at d/c from ED?: No Time of Disposition: 10:00 Decision to Admit Reason: Admit from EC Decision Date: 10/13/22 Decision Time: 10:00
[2022-10-13 08:07] LABS: ALT 18 U/L (4-34); AST 23 U/L (14-36); African American GFR (CKD) >90 (>60 ml/min/1.73 sqM); Albumin 3.6 g/dL (3.5-5.0); Alkaline Phosphatase 96 U/L (38-126); Anion Gap 11 mmol/L; Blood Urea Nitrogen 13 mg/dL (7-17); Calcium 8.8 mg/dL (8.4-10.2); Carbon Dioxide 25 mmol/L (22-30); Chloride 95 mmol/L (98-107); Glucose 159 mg/dL (74-99); Magnesium 1.1 mg/dL (1.6-2.3); Non-African American GFR(CKD) 87 (>60 ml/min/1.73 sqM); Potassium 3.8 mmol/L (3.5-5.1); Sodium 131 mmol/L (137-145); Total Bilirubin 0.5 mg/dL (0.2-1.3); Total Protein 6.1 g/dL (6.3-8.2)
--- NOTE | 2022-10-13 08:31 | XR ---
EXAMINATION TYPE: XR chest 2V DATE OF EXAM: 10/13/2022 8:20 AM COMPARISON: Chest radiographs from 04/24/2022 TECHNIQUE: XR chest 2V Frontal and lateral views of the chest. CLINICAL INDICATION:Female, 87 years old with history of Weakness; FINDINGS: Lungs/Pleura: There is no evidence of pleural effusion, focal consolidation, or pneumothorax. Chroni c senescent parenchymal change. Pulmonary vascularity: Unremarkable. Heart/mediastinum: Cardiomediastinal silhouette is enlarged and stable. Atherosclerotic calcificatio ns are seen in the aorta. Musculoskeletal: No acute osseous pathology. IMPRESSION: Chronic changes without evidence for acute process.
[2022-10-13] MEDS ORDERED: ACETAMINOPHEN TAB 325 MG TAB PO PRN (10:02)
[2022-10-13] MEDS ORDERED: IBUPROFEN 400 MG TAB PO PRN (10:02)
[2022-10-13] MEDS ORDERED: NALOXONE 0.4 MG/ML 1 ML VIAL IV PRN (10:02)
[2022-10-13] MEDS: DEXAMETHASONE SOD PHOSPHATE 10 MG/ML 1 ML VIAL IVP SCH (10:34)
[2022-10-13] MEDS ORDERED: SENNOSIDES 8.6 MG TAB PO PRN (10:57)
[2022-10-13] MEDS ORDERED: FAMOTIDINE 20 MG TAB PO PRN (10:57)
[2022-10-13] MEDS ORDERED: LACTULOSE 20 GM/30 ML CUP PO PRN (10:58)
[2022-10-13] MEDS ORDERED: ONDANSETRON 4 MG/2 ML VIAL IVP PRN (10:58)
[2022-10-13] MEDS ORDERED: CALCIUM CARBONATE 500 MG CHEWABLE PO PRN (10:58)
[2022-10-13] MEDS ORDERED: LORazepam 0.5 MG TAB PO PRN (10:58)
[2022-10-13] MEDS ORDERED: DEXTROSE 50% SYRINGE 50 ML IVP PRN ×2 (11:00)
[2022-10-13] MEDS: Mirabegron [Myrbetriq] 50 MG Tab.Er.24h PO SCH (12:21)
[2022-10-13] MEDS: CYANOCOBALAMIN 500 MCG TAB PO SCH (12:29)
[2022-10-13 12:30] LABS: Glucose,Whole Blood 158 mg/dL (70-110)
[2022-10-13] MEDS: APIXABAN 5 MG TAB PO SCH ×2 (12:30→17:01)
[2022-10-13] MEDS: SERTRALINE 25 MG TAB PO SCH (12:30)
[2022-10-13] MEDS: GABAPENTIN 100 MG CAP PO SCH ×2 (12:30→17:01)
[2022-10-13] MEDS: INSULIN ASPART (NovoLOG) 100 UNIT/ML VIAL SQ SCH ×2 (12:33→17:02)
[2022-10-13 13:40] LABS: Appearance,Urine Cloudy (Clear); Bacteria,Urine Occasional /hpf; Bilirubin,Urine Negative (Negative); Blood,Urine Negative (Negative); Color,Urine Colorless; Glucose,Urine (UA) Negative (Negative); Ketones,Urine Negative (Negative); Leukocyte Esterase,Urine Trace (Negative); Mucus,Urine Rare /hpf; Nitrite,Urine Positive (Negative); Protein,Urine Negative (Negative); RBC,Urine 1 /hpf (0-5); Specific Gravity,Urine 1.002 (1.001-1.035); Squamous Epithelial Cell,Urine <1 /hpf (0-4); Urobilinogen,Urine <2.0 mg/dL (<2.0); WBC,Urine 2 /hpf (0-5)
[2022-10-13] MEDS ORDERED: cefTRIAXone IN SWFI 1,000 MG/10 ML SYRINGE IVP STA (15:55)
--- NOTE | 2022-10-13 16:09 | P.HPIM ---
History of Present Illness H&P Date: 10/13/22 Chief Complaint: Cough short of breath This is a pleasant 87-year-old patient, follows Dr. Tristin Brennan. Chronic stable medical conditions include diabetes, hypertension, hypothyroid, urinary incontinence, depression, peripheral neuropathy, GERD. Patient does live alone but is frequented by his son Juarez. Patient normally independent. Found to be weak tired. Fever cough short of breath. Headache. No diarrhea. Had a fever of 101 documented by the EMS. Tired and rundown. Patient does test is positive in the ER. Patient is accompanied by both the sons in the ER. Review of systems: GEN.: Fever and chills EYES: None HEENT: Decreased hearing NECK: None RESPIRATORY: [As above CARDIOVASCULAR: None GASTROINTESTINAL: None GENITOURINARY: Urinary incontinence MUSCULOSKELETAL: Joint pains LYMPHATICS: None HEMATOLOGICAL: None PSYCHIATRY: None NEUROLOGICAL: None Past medical history to include: Hypothyroid, diabetes type 2, depression and anxiety, urinary incontinence, essential hypertension, peripheral neuropathy, hyperlipidemia, GERD, possible A. fib Social history: No smoking. No alcohol. Lives alone. Son Juarez drops in very often. Physical examination: VITAL SIGNS: 101 in the EMS, 81, 18, 157 with 76, 91% room air GENERAL: BMI 22.6, reclining in bed awake tired. EYES: Pupils equal. Conjunctiva normal. HEENT: External appearance of nose and ears normal, oral cavity grossly normal. NECK: JVD not raised; masses not palpable. HEART: First and second heart sounds are normal; no edema. LUNGS:[ Respiratory rate increased; occasional crackles. ABDOMEN: Soft, nontender, liver spleen not palpable, no masses palpable. PSYCH: Alert and oriented x3; mood and affect normal. MUSCULOSKELETAL:No Clubbing/cyanosis;muscles-grossly intact. OA NEUROLOGICAL: Cranial nerves grossly intact; no facial asymmetry, power and sensation grossly intact. LYMPHATICS: No lymph nodes palpable in the axilla and neck INVESTIGATIONS, reviewed in the clinical context: White count 7.7 hemoglobin 7.7 platelets 278 sodium 131 potassium 3.8 BUN 13 creatinine 0.49 UA positive for nitrite, leukoesterase COVID-19 PCR: Detected EKG tracing personally reviewed by me-normal sinus rhythm. Right bundle-branch block. Some ST-T wave changes. Chest x-ray film personally reviewed by me-some scanty infiltrates Assessment and plan: -Acute COVID 19 pneumonitis causing hypoxia Dexamethasone. Vitamin C. Vitamin D. Patient only on eliquis. -Acute hypoxic respiratory failure from COVID-19 FiO2 to keep the pulse ox above 94%. 91% on presentation -Vitamin B-12 deficiency Vitamin B12 supplementation -Paroxysmal atrial fibrillation, currently in sinus rhythm Eliquis -GERD Pepcid when necessary -Hyperlipidemia Lipitor 40 mg daily at bedtime -Peripheral neuropathy Neurontin 100 mg twice a day -Essential hypertension Zestril 5 mg daily, Lopressor 25 mg twice a day, -Chronic urinary incontinence Myrbetriq -Depression and anxiety not otherwise specified Zoloft for 25 mg day -Diabetes mellitus type 2 on oral hypoglycemic Metformin 5 mg twice a day -Hypothyroid Synthroid 50 g a day -Primary osteoarthritis Tylenol as needed -DO NOT RESUSCITATE per patient Past Medical History Past Medical History: CVA/TIA, Diabetes Mellitus, Hypertension, Thyroid Disorder History of Any Multi-Drug Resistant Organisms: None Reported Past Surgical History: No Surgical Hx Reported Past Psychological History: No Psychological Hx Reported Smoking Status: Never smoker Past Alcohol Use History: None Reported Past Drug Use History: None Reported Medications and Allergies Home Medications Medication Instructions Recorded Confirmed Type Apixaban [Eliquis] 5 mg PO BID-W/MEALS 04/24/22 10/13/22 History Baclofen [Lioresal] 10 mg PO HS 04/24/22 10/13/22 History Cyanocobalamin (Vitamin B-12) 1,000 mcg PO DAILY@1200 04/24/22 10/13/22 History [Vitamin B-12] Gabapentin [Neurontin] 100 mg PO BID-W/MEALS 04/24/22 10/13/22 History Levothyroxine Sodium [Synthroid] 50 mcg PO AC-BRKFST 04/24/22 10/13/22 History Melatonin 3 mg PO HS 04/24/22 10/13/22 History Mirabegron [Myrbetriq] 50 mg PO DAILY@1200 04/24/22 10/13/22 History Sertraline [Zoloft] 25 mg PO DAILY 04/24/22 10/13/22 History Atorvastatin [Lipitor] 40 mg PO HS 10/13/22 10/13/22 History Famotidine [Pepcid] 20 mg PO DAILY PRN 10/13/22 10/13/22 History Metoprolol Tartrate [Lopressor] 25 mg PO BID 10/13/22 10/13/22 History Sennosides [Senokot] 17.2 mg PO DAILY PRN 10/13/22 10/13/22 History lisinopriL [Zestril] 5 mg PO DAILY 10/13/22 10/13/22 History metFORMIN HCL 500 mg PO AC-BID 10/13/22 10/13/22 History Allergies Allergy/AdvReac Type Severity Reaction Status Date / Time No Known Allergies Allergy Verified 10/13/22 08:56 Physical Exam Vitals: Vital Signs Temp Pulse Resp BP Pulse Ox 10/13/22 12:35 79 18 140/67 97 10/13/22 11:00 99.3 F 73 17 129/65 99 10/13/22 08:20 98.4 F 10/13/22 07:09 100.7 F H 81 18 157/76 91 L Intake and Output 10/13/22 10/13/22 10/13/22 06:59 14:59 22:59 Other: Weight 63.503 kg Results CBC & Chem 7: 10/13/22 07:27 10/13/22 07:27 Labs: Abnormal Lab Results - Last 24 Hours (Table) 10/13/22 10/13/22 10/13/22 Range/Units 07:27 07:27 07:27 Hgb 7.7 L (11.4-16.0) gm/dL Hct 26.1 L (34.0-46.0) % MCV 59.9 L (80.0-100.0) fL MCH 17.7 L (25.0-35.0) pg MCHC 29.6 L (31.0-37.0) g/dL RDW 20.5 H (11.5-15.5) % Sodium 131 L (137-145) mmol/L Chloride 95 L (98-107) mmol/L Creatinine 0.49 L (0.52-1.04) mg/dL Glucose 159 H (74-99) mg/dL POC Glucose (mg/dL) (70-110) mg/dL Magnesium 1.1 L (1.6-2.3) mg/dL Total Protein 6.1 L (6.3-8.2) g/dL Urine Appearance Cloudy H (Clear) Urine Nitrite Positive H (Negative) Ur Leukocyte Esterase Trace H (Negative) Urine Bacteria Occasional H (None) /hpf Urine Mucus Rare H (None) /hpf SARS-CoV-2 (PCR) (Not Detectd) 10/13/22 10/13/22 Range/Units 07:27 12:28 Hgb (11.4-16.0) gm/dL Hct (34.0-46.0) % MCV (80.0-100.0) fL MCH (25.0-35.0) pg MCHC (31.0-37.0) g/dL RDW (11.5-15.5) % Sodium (137-145) mmol/L Chloride (98-107) mmol/L Creatinine (0.52-1.04) mg/dL Glucose (74-99) mg/dL POC Glucose (mg/dL) 158 H (70-110) mg/dL Magnesium (1.6-2.3) mg/dL Total Protein (6.3-8.2) g/dL Urine Appearance (Clear) Urine Nitrite (Negative) Ur Leukocyte Esterase (Negative) Urine Bacteria (None) /hpf Urine Mucus (None) /hpf SARS-CoV-2 (PCR) Detected A (Not Detectd) Thrombosis Risk Factor Assmnt - Choose All That Apply Any of the Below Risk Factors Present?: Yes Each Risk Factor Represents 3 Points: Age 75 years or older Thrombosis Risk Factor Assessment Total Risk Factor Score: 3 Thrombosis Risk Factor Assessment Level: Moderate Risk
[2022-10-13 16:56] LABS: Glucose,Whole Blood 297 mg/dL (70-110)
[2022-10-13] MEDS: CEPHALEXIN 500 MG CAP PO SCH ×2 (17:02→20:49)
[2022-10-13] MEDS: metFORMIN 500 MG TAB PO SCH (17:02)
[2022-10-13] MEDS: MAGNESIUM OXIDE 400 MG TAB PO SCH (17:02)
[2022-10-13] MEDS: ATORVASTATIN 40 MG TAB PO SCH (20:49)
[2022-10-13] MEDS: METOPROLOL TARTRATE 25 MG TAB PO SCH (20:49)
[2022-10-13] MEDS: BACLOFEN 10 MG TAB PO SCH (20:49)
[2022-10-13] MEDS: MELATONIN 3 MG TABLET PO SCH (20:49)
[2022-10-13 21:01] LABS: Glucose,Whole Blood 229 mg/dL (70-110)
[2022-10-13 21:08] LABS: % Iron Saturation 3.17 (12.00-45.00)
[2022-10-14 05:54] LABS: Glucose,Whole Blood 115 mg/dL (70-110)
[2022-10-14] MEDS: INSULIN ASPART (NovoLOG) 100 UNIT/ML VIAL SQ SCH ×3 (06:18→17:15)
[2022-10-14] MEDS: GABAPENTIN 100 MG CAP PO SCH ×2 (08:13→17:16)
[2022-10-14] MEDS: LEVOTHYROXINE 50 MCG TAB PO SCH (08:13)
[2022-10-14] MEDS: CEPHALEXIN 500 MG CAP PO SCH ×4 (08:13→21:32)
[2022-10-14] MEDS: APIXABAN 5 MG TAB PO SCH ×2 (08:13→17:16)
[2022-10-14] MEDS: SERTRALINE 25 MG TAB PO SCH (08:13)
[2022-10-14] MEDS: MAGNESIUM OXIDE 400 MG TAB PO SCH ×2 (08:14→21:32)
[2022-10-14] MEDS: lisinopriL 5 MG TAB PO SCH (08:14)
[2022-10-14] MEDS: metFORMIN 500 MG TAB PO SCH ×2 (08:14→17:15)
[2022-10-14] MEDS: METOPROLOL TARTRATE 25 MG TAB PO SCH ×2 (08:14→21:32)
[2022-10-14] MEDS: DEXAMETHASONE SOD PHOSPHATE 10 MG/ML 1 ML VIAL IVP SCH (08:14)
[2022-10-14 11:05] LABS: Glucose,Whole Blood 179 mg/dL (70-110)
[2022-10-14 11:08] LABS: HCT 27.8 % (37.2-46.3); HGB 7.5 g/dL (12.0-15.0); MCH 16.7 pg (27.0-32.0); MCV 62.1 fL (80.0-97.0); Mean Platelet Volume 9.1 fL (9.5-12.2); NRBC Per 100 WBC 0 /100 WBCS (0.0-0.0); Platelet Count 320 X 10*3/uL (140-440); RBC 4.48 X 10*6/uL (4.10-5.20); RDW 23.4 % (11.5-14.5); WBC 6.68 X 10*3/uL (4.50-10.00)
[2022-10-14 11:51] LABS: Basophils # (A) 0.03 X 10*3/uL (0.00-0.10); Basophils % (A) 0.4 %; Eosinophils # (A) 0.16 X 10*3/uL (0.04-0.35); Eosinophils % (A) 2.4 %; Immature Grans, Automated 0.3 %; Lymphocytes # (A) 1.36 X 10*3/uL (0.90-5.00); Lymphocytes % (A) 20.4 %; Monocytes # (A) 0.62 X 10*3/uL (0.20-1.00); Monocytes % (A) 9.3 %; Neutrophils # (A) 4.49 X 10*3/uL (1.80-7.70); Neutrophils % (A) 67.2 %
[2022-10-14 11:52] LABS: Acanthocytes 2+; Anisocytosis (M) 2+; Elliptocytes 2+; Microcytosis (M) 3+; Schistocytes 2+
[2022-10-14] MEDS: CYANOCOBALAMIN 500 MCG TAB PO SCH (12:12)
[2022-10-14] MEDS: Mirabegron [Myrbetriq] 50 MG Tab.Er.24h PO SCH (12:17)
[2022-10-14 12:19] LABS: African American GFR (CKD) 96.5 (60.0-200.0); Anion Gap 10.8 mmol/L (10.00-18.00); BUN/Creat Ratio 16.59 Ratio (12.00-20.00); Blood Urea Nitrogen 9.3 mg/dL (9.0-27.0); Calcium 8.7 mg/dL (8.7-10.3); Carbon Dioxide 24.4 mmol/L (20.0-27.5); Non-African American GFR(CKD) 83.3 (60.0-200.0); Potassium 3.5 mmol/L (3.5-5.5)
[2022-10-14 16:40] LABS: Glucose,Whole Blood 316 mg/dL (70-110)
--- NOTE | 2022-10-14 20:06 | P.PN ---
Progress Note - Text Progress Note Date: 10/14/22 Chief Complaint: Cough short of breath This is a pleasant 87-year-old patient, follows Dr. Tristin Brennan. Chronic stable medical conditions include diabetes, hypertension, hypothyroid, urinary incontinence, depression, peripheral neuropathy, GERD. Patient does live alone but is frequented by his son Juarez. Patient normally independent. Found to be weak tired. Fever cough short of breath. Headache. No diarrhea. Had a fever of 101 documented by the EMS. Tired and rundown. Patient does test is positive in the ER. Patient is accompanied by both the sons in the ER. Admitted with COVID 19 pneumonitis, acute hypoxic respiratory failure. UTI. Started on Keflex, dexamethasone, oxygen October 14: Sitting edge of the bed. Breathing a bit better. No fever. Some cough. Some shortness of breath. Appetite better. Add incentive spirometry Past medical history to include: Hypothyroid, diabetes type 2, depression and anxiety, urinary incontinence, essential hypertension, peripheral neuropathy, hyperlipidemia, GERD, possible A. fib Social history: No smoking. No alcohol. Lives alone. Son Juarez drops in very often. Physical examination: VITAL SIGNS: 101 in the EMS, 81, 18, 157 with 76, 91% room air GENERAL: BMI 22.6, reclining in bed awake tired. EYES: Pupils equal. Conjunctiva normal. HEENT: External appearance of nose and ears normal, oral cavity grossly normal. NECK: JVD not raised; masses not palpable. HEART: First and second heart sounds are normal; no edema. LUNGS:[ Respiratory rate increased; occasional crackles. ABDOMEN: Soft, nontender, liver spleen not palpable, no masses palpable. PSYCH: Alert and oriented x3; mood and affect normal. MUSCULOSKELETAL:No Clubbing/cyanosis;muscles-grossly intact. OA NEUROLOGICAL: Cranial nerves grossly intact; no facial asymmetry, power and sensation grossly intact. LYMPHATICS: No lymph nodes palpable in the axilla and neck INVESTIGATIONS, reviewed in the clinical context: White count 7.7 hemoglobin 7.7 platelets 278 sodium 131 potassium 3.8 BUN 13 creatinine 0.49 UA positive for nitrite, leukoesterase COVID-19 PCR: Detected EKG tracing personally reviewed by me-normal sinus rhythm. Right bundle-branch block. Some ST-T wave changes. Chest x-ray film personally reviewed by me-some scanty infiltrates Assessment and plan: -Acute COVID 19 pneumonitis causing hypoxia Dexamethasone. Vitamin C. Vitamin D. Patient only on eliquis. -Acute hypoxic respiratory failure from COVID-19 FiO2 to keep the pulse ox above 94%. 91% on presentation -Vitamin B-12 deficiency Vitamin B12 supplementation -Paroxysmal atrial fibrillation, currently in sinus rhythm Eliquis -GERD Pepcid when necessary -Hyperlipidemia Lipitor 40 mg daily at bedtime -Peripheral neuropathy Neurontin 100 mg twice a day -Essential hypertension Zestril 5 mg daily, Lopressor 25 mg twice a day, -Chronic urinary incontinence Myrbetriq -Depression and anxiety not otherwise specified Zoloft for 25 mg day -Diabetes mellitus type 2 on oral hypoglycemic Metformin 500 mg twice a day -Hypothyroid Synthroid 50 g a day -Primary osteoarthritis Tylenol as needed -DO NOT RESUSCITATE per patient.
[2022-10-14 20:50] LABS: Glucose,Whole Blood 178 mg/dL (70-110)
[2022-10-14] MEDS: BACLOFEN 10 MG TAB PO SCH (21:32)
[2022-10-14] MEDS: MELATONIN 3 MG TABLET PO SCH (21:32)
[2022-10-14] MEDS: ATORVASTATIN 40 MG TAB PO SCH (21:32)
[2022-10-14 23:11] LABS: Appearance,Urine Clear (Clear); Bilirubin,Urine Negative (Negative); Blood,Urine Negative (Negative); Color,Urine Light Yellow; Glucose,Urine (UA) 3+ (Negative); Ketones,Urine Negative (Negative); Leukocyte Esterase,Urine Negative (Negative); Nitrite,Urine Negative (Negative); Protein,Urine Negative (Negative); Urobilinogen,Urine <2.0 mg/dL (<2.0)
[2022-10-15 02:17] VITALS: PULSE 65
[2022-10-15 06:17] LABS: Glucose,Whole Blood 127 mg/dL (70-110)
[2022-10-15] MEDS: APIXABAN 5 MG TAB PO SCH (06:28)
[2022-10-15] MEDS: GABAPENTIN 100 MG CAP PO SCH (06:28)
[2022-10-15] MEDS: LEVOTHYROXINE 50 MCG TAB PO SCH (06:28)
[2022-10-15] MEDS: INSULIN ASPART (NovoLOG) 100 UNIT/ML VIAL SQ SCH ×2 (06:28→12:04)
[2022-10-15] MEDS: metFORMIN 500 MG TAB PO SCH (06:28)
[2022-10-15 07:30] VITALS: BP 160/76; RESP 16; TEMP 97.5
[2022-10-15] MEDS: CEPHALEXIN 500 MG CAP PO SCH ×2 (08:09→12:04)
[2022-10-15] MEDS: lisinopriL 5 MG TAB PO SCH (08:09)
[2022-10-15] MEDS: METOPROLOL TARTRATE 25 MG TAB PO SCH (08:10)
[2022-10-15] MEDS: MAGNESIUM OXIDE 400 MG TAB PO SCH (08:10)
[2022-10-15] MEDS: SERTRALINE 25 MG TAB PO SCH (08:10)
[2022-10-15] MEDS ORDERED: dexAMETHasone 2 MG TAB PO SCH (09:00)
[2022-10-15 11:12] LABS: Glucose,Whole Blood 195 mg/dL (70-110)
[2022-10-15] MEDS: Mirabegron [Myrbetriq] 50 MG Tab.Er.24h PO SCH (12:01)
[2022-10-15] MEDS: CYANOCOBALAMIN 500 MCG TAB PO SCH (12:04)
--- NOTE | 2022-10-15 19:41 | P.DS ---
Providers Date of admission: 10/13/22 10:02 Expected date of discharge: 10/15/22 Attending physician: Kalia Stevens Primary care physician: Tristin Brennan [facility] Course: Chief Complaint: Cough short of breath This is a pleasant 87-year-old patient, follows Dr. Tristin Brennan. Chronic stable medical conditions include diabetes, hypertension, hypothyroid, urinary incontinence, depression, peripheral neuropathy, GERD. Patient does live alone but is frequented by his son Juarez. Patient normally independent. Found to be weak tired. Fever cough short of breath. Headache. No diarrhea. Had a fever of 101 documented by the EMS. Tired and rundown. Patient does test is positive in the ER. Patient is accompanied by both the sons in the ER. Admitted with COVID 19 pneumonitis, acute hypoxic respiratory failure. UTI. Started on Keflex, dexamethasone, oxygen October 14: Sitting edge of the bed. Breathing a bit better. No fever. Some cough. Some shortness of breath. Appetite better. Add incentive spirometry October 15: D much better. Breathing better. Eating fair. Participation walk around the room with a walker. Bit tired but able to get around. Able to also independently code the bathroom. Discussed with the patient. Discussion and discharge planning more than 35 minutes Past medical history to include: Hypothyroid, diabetes type 2, depression and anxiety, urinary incontinence, essential hypertension, peripheral neuropathy, hyperlipidemia, GERD, possible A. fib Social history: No smoking. No alcohol. Lives alone. Son Juarez drops in very often. Physical examination: VITAL SIGNS: 97.5, a 65, 16, 160-76, 92% room air GENERAL: BMI 22.6, a bit of tremor comfortable EYES: Pupils equal. Conjunctiva normal. HEENT: External appearance of nose and ears normal, oral cavity grossly normal. NECK: JVD not raised; masses not palpable. HEART: First and second heart sounds are normal; no edema. LUNGS:[ Respiratory rate normal; lungs clear. ABDOMEN: Soft, nontender, liver spleen not palpable, no masses palpable. PSYCH: Alert and oriented x3; mood and affect normal. MUSCULOSKELETAL:No Clubbing/cyanosis;muscles-grossly intact. OA k INVESTIGATIONS, reviewed in the clinical context: White count 7.7 hemoglobin 7.7 platelets 278 sodium 131 potassium 3.8 BUN 13 creatinine 0.49 UA positive for nitrite, leukoesterase COVID-19 PCR: Detected EKG tracing personally reviewed by me-normal sinus rhythm. Right bundle-branch block. Some ST-T wave changes. Chest x-ray film personally reviewed by me-some scanty infiltrates Assessment and plan: -Acute COVID 19 pneumonitis causing hypoxia: Improved Dexamethasone. Vitamin C. Vitamin D. on eliquis. -Acute hypoxic respiratory failure from COVID-19: Better -Vitamin B-12 deficiency Vitamin B12 supplementation -Paroxysmal atrial fibrillation, currently in sinus rhythm Eliquis -GERD Pepcid when necessary -Hyperlipidemia Lipitor 40 mg daily at bedtime -Peripheral neuropathy Neurontin 100 mg twice a day -Essential hypertension Zestril 5 mg daily, Lopressor 25 mg twice a day, -Chronic urinary incontinence Myrbetriq -Depression and anxiety not otherwise specified Zoloft for 25 mg day -Diabetes mellitus type 2 on oral hypoglycemic Metformin 500 mg twice a day -Hypothyroid Synthroid 50 g a day -Primary osteoarthritis Tylenol as needed -DO NOT RESUSCITATE per patient. Disposition: Home Plan - Discharge Summary Discharge Rx Participant: No New Discharge Prescriptions: New Cephalexin [Keflex] 500 mg PO QID #10 cap Continue Cyanocobalamin (Vitamin B-12) [Vitamin B-12] 1,000 mcg PO DAILY@1200 Levothyroxine Sodium [Synthroid] 50 mcg PO AC-BRKFST Gabapentin [Neurontin] 100 mg PO BID-W/MEALS Sennosides [Senokot] 17.2 mg PO DAILY PRN PRN Reason: Constipation metFORMIN HCL 500 mg PO AC-BID Famotidine [Pepcid] 20 mg PO DAILY PRN PRN Reason: gerd Sertraline [Zoloft] 25 mg PO DAILY Mirabegron [Myrbetriq] 50 mg PO DAILY@1200 Melatonin 3 mg PO HS Apixaban [Eliquis] 5 mg PO BID-W/MEALS Baclofen [Lioresal] 10 mg PO HS Metoprolol Tartrate [Lopressor] 25 mg PO BID lisinopriL [Zestril] 5 mg PO DAILY Atorvastatin [Lipitor] 40 mg PO HS Discharge Medication List Apixaban [Eliquis] 5 mg PO BID-W/MEALS 04/24/22 [History] Baclofen [Lioresal] 10 mg PO HS 04/24/22 [History] Cyanocobalamin (Vitamin B-12) [Vitamin B-12] 1,000 mcg PO DAILY@1200 04/24/22 [History] Gabapentin [Neurontin] 100 mg PO BID-W/MEALS 04/24/22 [History] Levothyroxine Sodium [Synthroid] 50 mcg PO AC-BRKFST 04/24/22 [History] Melatonin 3 mg PO HS 04/24/22 [History] Mirabegron [Myrbetriq] 50 mg PO DAILY@1200 04/24/22 [History] Sertraline [Zoloft] 25 mg PO DAILY 04/24/22 [History] Atorvastatin [Lipitor] 40 mg PO HS 10/13/22 [History] Famotidine [Pepcid] 20 mg PO DAILY PRN 10/13/22 [History] Metoprolol Tartrate [Lopressor] 25 mg PO BID 10/13/22 [History] Sennosides [Senokot] 17.2 mg PO DAILY PRN 10/13/22 [History] lisinopriL [Zestril] 5 mg PO DAILY 10/13/22 [History] metFORMIN HCL 500 mg PO AC-BID 10/13/22 [History] Cephalexin [Keflex] 500 mg PO QID #10 cap 10/15/22 [Rx] Follow up Appointment(s)/Referral(s): Home Health,[facility] [NON-STAFF] - As Needed Tristin Brennan MD [Primary Care Provider] - 1-2 days (office will call with appointment time) Patient Instructions/Handouts: Weakness (DC), Anemia (DC), COVID-19 (Coronavirus Disease 2019) (DC), Social Distancing Guidelines for COVID-19 (DC) Discharge Disposition: HOME WITH HOME HEALTH SERVICES
== END 2022-10-15 12:56 | disposition home health service (06) | DRG 177 ==
LOC: EC 07:04 → 4SSUR 10:02
PROVIDERS: ADMIT Hospitalist; ATTEND Hospitalist
PROC: 3E0F7SF Introduction of Other Gas into Respiratory Tract, Via Natural or Artificial Opening (ICD-10-PCS; principal; 2022-10-13)
DX: U07.1 COVID-19 (principal); J12.82 Pneumonia due to coronavirus disease 2019; J96.01 Acute respiratory failure with hypoxia; N39.0 Urinary tract infection, site not specified; R53.1 Weakness; D64.9 Anemia, unspecified; E78.5 Hyperlipidemia, unspecified; E11.42 Type 2 diabetes mellitus with diabetic polyneuropathy; I10 Essential (primary) hypertension; E03.9 Hypothyroidism, unspecified; F41.8 Other specified anxiety disorders; F32.A Depression, unspecified; I45.10 Unspecified right bundle-branch block; R32 Unspecified urinary incontinence; K21.9 Gastro-esophageal reflux disease without esophagitis; E53.8 Deficiency of other specified B group vitamins; I48.0 Paroxysmal atrial fibrillation; M19.91 Primary osteoarthritis, unspecified site; Z66 Do not resuscitate; Z79.01 Long term (current) use of anticoagulants; Z79.84 Long term (current) use of oral hypoglycemic drugs; Z79.890 Hormone replacement therapy; Z79.899 Other long term (current) drug therapy; Z86.73 Personal history of transient ischemic attack (TIA), and cerebral infarction without residual deficits
CPT/HCPCS: 36415; 51702; 71046; 80048; 80053; 81001; 81003; 82728; 83540; 83550; 83605; 83735; 83880; 84484; 85025; 85610; 85730; 87040; 87636; 93005; 94760; 96361; 96374; 99285

== ENCOUNTER 2023-01-22 17:28 | Observation (INO) | payer MEDICARE ==
--- NOTE | 2023-01-22 18:33 | ED ---
General Adult HPI - General Chief complaint: Urogenital Stated complaint: WEAKNESS/UTI Time Seen by Provider: 01/22/23 17:53 Source: patient, family Mode of arrival: ambulatory Limitations: altered mental status (Dementia versus delirium) - History of Present Illness Initial comments: This patient is an 87-year-old woman who is brought to have evaluation for fatigue, generalized weakness, inability to ambulate. Most of the history from family, who states that when the patient has been like this in the past there has been urinary tract infection. She was diagnosed with that by her primary physician, and started Keflex yesterday. They did not note fevers. They do not note focal weakness. Patient denies pain. -: days(s) Severity scale (1-10): 0 Consistency: constant Improves with: none Worsens with: none Associated Symptoms: weakness Treatments Prior to Arrival: other (Keflex) - Related Data Home Medications Medication Instructions Recorded Confirmed Apixaban [Eliquis] 5 mg PO AC-BID 04/24/22 01/22/23 Baclofen [Lioresal] 10 mg PO HS 04/24/22 01/22/23 Cyanocobalamin (Vitamin B-12) 1,000 mcg PO DAILY@1200 04/24/22 01/22/23 [Vitamin B-12] Mirabegron [Myrbetriq] 50 mg PO DAILY@1200 04/24/22 01/22/23 Atorvastatin [Lipitor] 40 mg PO HS 10/13/22 01/22/23 Metoprolol Tartrate [Lopressor] 25 mg PO Q12H 10/13/22 01/22/23 Cholecalciferol [Vitamin D3 (25 50 mcg PO DAILY@1200 01/22/23 01/22/23 Mcg = 1000 Iu)] Previous Rx's Medication Instructions Recorded Acetaminophen Tab [Tylenol] 650 mg PO Q6HR PRN tab 01/26/23 Lisinopril-Hctz 20-12.5 mg 1 each PO BID #60 tab 01/26/23 [Zestoretic 20-12.5] Magnesium Oxide [Mag-Ox] 400 mg PO BID #20 tab 01/26/23 PARoxetine [Paxil] 10 mg PO DAILY #30 tab 01/26/23 metFORMIN HCL 1,000 mg PO BID #60 tablet 01/26/23 traZODone HCL [Desyrel] 50 mg PO HS #30 tab 01/26/23 Allergies Allergy/AdvReac Type Severity Reaction Status Date / Time No Known Allergies Allergy Verified 01/22/23 20:10 Review of Systems ROS Statement: Those systems with pertinent positive or pertinent negative responses have been documented in the HPI. ROS Other: All systems not noted in ROS Statement are negative. Limitations: ROS unobtainable due to patients medical condition Constitutional: Reports: weakness. Denies: fever Respiratory: Denies: cough, dyspnea Cardiovascular: Denies: chest pain, syncope Gastrointestinal: Denies: abdominal pain, vomiting, diarrhea Genitourinary: Denies: dysuria Musculoskeletal: Denies: back pain Skin: Denies: rash Neurological: Reports: confusion. Denies: headache, weakness Past Medical History Past Medical History: CVA/TIA, Diabetes Mellitus, Hypertension, Thyroid Disorder History of Any Multi-Drug Resistant Organisms: None Reported Past Surgical History: No Surgical Hx Reported Past Psychological History: No Psychological Hx Reported Smoking Status: Never smoker Past Alcohol Use History: None Reported Past Drug Use History: None Reported General Exam Limitations: no limitations, altered mental status General appearance: in no apparent distress Head exam: Present: atraumatic, normocephalic Eye exam: Present: normal appearance. Absent: scleral icterus, conjunctival injection ENT exam: Present: mucous membranes dry Neck exam: Present: normal inspection. Absent: tenderness, meningismus Respiratory exam: Present: normal lung sounds bilaterally. Absent: respiratory distress, wheezes, rales, rhonchi, stridor Cardiovascular Exam: Present: regular rate, normal rhythm, normal heart sounds. Absent: systolic murmur, diastolic murmur, rubs, gallop GI/Abdominal exam: Present: soft. Absent: distended, tenderness, guarding, rebound, mass Extremities exam: Present: normal inspection, normal capillary refill. Absent: pedal edema Back exam: Absent: CVA tenderness (R), CVA tenderness (L) Neurological exam: Present: alert, CN II-XII intact. Absent: oriented X3 (Patient is oriented to person and was able to recognize she is in health care setting. Disoriented to date.), motor sensory deficit Skin exam: Present: warm, dry, intact, normal color Course Vital Signs 01/22/23 01/22/23 01/22/23 17:45 20:00 21:00 Temperature 97.6 F Pulse Rate 86 77 87 Respiratory 18 24 20 Rate Blood Pressure 169/88 155/83 183/96 O2 Sat by Pulse 95 96 95 Oximetry 01/22/23 22:28 Temperature Pulse Rate 100 Respiratory 20 Rate Blood Pressure 183/96 O2 Sat by Pulse 95 Oximetry EKG Findings - EKG Results: EKG: interpreted by ERMD, sinus rhythm (With PVCs, rate 79 bpm) - Blocks, [place], Hypertrophy, ST Abn: AV and intraventricular conduction: right bundle branch block (fixed/intermittent, complete/incomplete) QRS axis and voltage: right axis deviation (+90 to +180) Medical Decision Making - Medical Decision Making The patient had chest x-ray which I interpreted as being negative for acute infiltrate, pneumothorax, congestive heart failure Was pt. sent in by a medical professional or institution ([facility], RENEWABLE ENERGY ENGINEER, urgent care, hospital, or penitentiary...) When possible be specific @ -[No] Did you speak to anyone other than the patient for history (EMS, parent, family, police, friend...)? What history was obtained from this source @ -[No] Did you review nursing and triage notes (agree or disagree)? Why? @ -[I reviewed and agree with nursing and triage notes] Were old charts reviewed (outside hosp., previous admission, EMS record, old EKG, old radiological studies, urgent care reports/EKG's, penitentiary records)? Report findings @ -[No old charts were reviewed] Differential Diagnosis (chest pain, altered mental status, abdominal pain women, abdominal pain men, vaginal bleeding, weakness, fever, dyspnea, syncope, headache, dizziness, GI bleed, back pain, seizure, CVA, palpatations, mental health, musculoskeletal)? @ -[Differential Weakness: Hypoglycemia, shock, sepsis, hyponatremia, anemia, infection, MT, ETOH, adverse medicine reaction, overdose, stroke, this is not meant to be an all-inclusive list. EKG interpreted by me (3pts min.). @ -[As above] X-rays interpreted by me (1pt min.). @ -[I interpreted as above CT interpreted by me (1pt min.). @ -[None done] U/S interpreted by me (1pt. min.). @ -[None done] What testing was considered but not performed or refused? (CT, X-rays, U/S, labs)? Why? @ -[None] What meds were considered but not given or refused? Why? @ -[None] Did you discuss the management of the patient with other professionals (professionals i.e. , PA, RENEWABLE ENERGY ENGINEER, lab, RT, psych nurse, social service worker, chain link fence installer, teacher, hydrographical technical officer, rn field case manager)? Give summary @ -[No] Was smoking cessation discussed for >3mins.? @ -[No] Was critical care preformed (if so, how long)? @ -[No] Were there social determinants of health that impacted care today? How? (Homelessness, low income, unemployed, alcoholism, drug addiction, transportation, low edu. Level, literacy, decrease access to med. care, group home, rehab)? @ -[No] Was there de-escalation of care discussed even if they declined (Discuss DNR or withdrawal of care, Hospice)? DNR status @ -[No] What co-morbidities impacted this encounter? (DM, HTN, Smoking, COPD, CAD, Cancer, CVA, ARF, Chemo, Hep., AIDS, mental health diagnosis, sleep apnea, morbid obesity)? @ -[None] Was patient admitted / discharged? Hospital course, mention meds given and route, prescriptions, significant lab abnormalities, going to OR and other pertinent info. @ -[This patient is an 87-year-old woman brought with weakness and fatigue. Family states that she is not getting around and they're not able to care for her. The patient's initial workup does reveal some degree of anemia. There does not this point appear to be sepsis or infectious process going on. The patient not able ambulate in the department therefore will be admitted with consideration to rehab placement. Undiagnosed new problem with uncertain prognosis? @ -[At this point the generalized weakness and fatigue is of uncertain etiology, though dementia may be contributing factor Drug Therapy requiring intensive monitoring for toxicity (Heparin, Nitro, Insulin, Cardizem)? @ -[No] Were any procedures done? @ -[No] Diagnosis/symptom? @ -[Acute generalized weakness and fatigue Anemia Acute, or Chronic, or Acute on Chronic? @ -Acute Uncomplicated (without systemic symptoms) or Complicated (systemic symptoms)? @ -[Uncomplicated Side effects of treatment? @ -[No] Exacerbation, Progression, or Severe Exacerbation? @ -[No] Poses a threat to life or bodily function? How? (Chest pain, USA, MT, pneumonia, PE, COPD, DKA, ARF, appy, cholecystitis, CVA, Diverticulitis, Homicidal, Suicidal, threat to staff... and all critical care pts) @ -[Undetermined at time of admission - Lab Data Result diagrams: 01/22/23 18:52 01/22/23 18:52 Lab Results 01/22/23 01/22/23 01/22/23 Range/Units 18:36 18:52 18:52 WBC 10.1 (3.8-10.6) k/uL RBC 4.74 (3.80-5.40) m/uL Hgb 8.7 L (11.4-16.0) gm/dL Hct 29.2 L (34.0-46.0) % MCV 61.6 L (80.0-100.0) fL MCH 18.3 L (25.0-35.0) pg MCHC 29.7 L (31.0-37.0) g/dL RDW 19.1 H (11.5-15.5) % Plt Count 335 (150-450) k/uL MPV 6.7 Neutrophils % 71 % Lymphocytes % 20 % Monocytes % 6 % Eosinophils % 1 % Basophils % 0 % Neutrophils # 7.2 (1.3-7.7) k/uL Lymphocytes # 2.1 (1.0-4.8) k/uL Monocytes # 0.7 (0-1.0) k/uL Eosinophils # 0.1 (0-0.7) k/uL Basophils # 0.0 (0-0.2) k/uL Hypochromasia Marked Poikilocytosis Moderate Anisocytosis Slight Microcytosis Marked Sodium 132 L (137-145) mmol/L Potassium 3.5 (3.5-5.1) mmol/L Chloride 98 (98-107) mmol/L Carbon Dioxide 26 (22-30) mmol/L Anion Gap 8 mmol/L BUN 16 (7-17) mg/dL Creatinine 0.49 L (0.52-1.04) mg/dL Est GFR (CKD-EPI)AfAm >90 (>60 ml/min/1.73 sqM) Est GFR (CKD-EPI)NonAf 87 (>60 ml/min/1.73 sqM) Glucose 139 H (74-99) mg/dL Plasma Lactic Acid Calvin (0.7-2.0) mmol/L Calcium 9.0 (8.4-10.2) mg/dL Magnesium 1.3 L (1.6-2.3) mg/dL Total Bilirubin 0.5 (0.2-1.3) mg/dL AST 19 (14-36) U/L ALT 15 (4-34) U/L Alkaline Phosphatase 110 (38-126) U/L Troponin I (0.000-0.034) ng/mL Total Protein 6.3 (6.3-8.2) g/dL Albumin 3.5 (3.5-5.0) g/dL TSH (0.350-5.500) UIU/ML Urine Color Yellow Urine Appearance Clear (Clear) Urine pH 5.0 (5.0-8.0) Ur Specific [place] 1.022 (1.001-1.035) Urine Protein Trace H (Negative) Urine Glucose (UA) Negative (Negative) Urine Ketones 1+ H (Negative) Urine Blood Trace H (Negative) Urine Nitrite Negative (Negative) Urine Bilirubin Negative (Negative) Urine Urobilinogen 2.0 (<2.0) mg/dL Ur Leukocyte Esterase Negative (Negative) Urine RBC <1 (0-5) /hpf Urine WBC 1 (0-5) /hpf Ur Squamous Epith Cells <1 (0-4) /hpf Urine Mucus Rare H (None) /hpf 01/22/23 01/22/23 01/22/23 Range/Units 18:52 18:52 18:52 WBC (3.8-10.6) k/uL RBC (3.80-5.40) m/uL Hgb (11.4-16.0) gm/dL Hct (34.0-46.0) % MCV (80.0-100.0) fL MCH (25.0-35.0) pg MCHC (31.0-37.0) g/dL RDW (11.5-15.5) % Plt Count (150-450) k/uL MPV Neutrophils % % Lymphocytes % % Monocytes % % Eosinophils % % Basophils % % Neutrophils # (1.3-7.7) k/uL Lymphocytes # (1.0-4.8) k/uL Monocytes # (0-1.0) k/uL Eosinophils # (0-0.7) k/uL Basophils # (0-0.2) k/uL Hypochromasia Poikilocytosis Anisocytosis Microcytosis Sodium (137-145) mmol/L Potassium (3.5-5.1) mmol/L Chloride (98-107) mmol/L Carbon Dioxide (22-30) mmol/L Anion Gap mmol/L BUN (7-17) mg/dL Creatinine (0.52-1.04) mg/dL Est GFR (CKD-EPI)AfAm (>60 ml/min/1.73 sqM) Est GFR (CKD-EPI)NonAf (>60 ml/min/1.73 sqM) Glucose (74-99) mg/dL Plasma Lactic Acid Calvin 0.9 (0.7-2.0) mmol/L Calcium (8.4-10.2) mg/dL Magnesium (1.6-2.3) mg/dL Total Bilirubin (0.2-1.3) mg/dL AST (14-36) U/L ALT (4-34) U/L Alkaline Phosphatase (38-126) U/L Troponin I <0.012 (0.000-0.034) ng/mL Total Protein (6.3-8.2) g/dL Albumin (3.5-5.0) g/dL TSH 0.622 (0.350-5.500) UIU/ML Urine Color Urine Appearance (Clear) Urine pH (5.0-8.0) Ur Specific [place] (1.001-1.035) Urine Protein (Negative) Urine Glucose (UA) (Negative) Urine Ketones (Negative) Urine Blood (Negative) Urine Nitrite (Negative) Urine Bilirubin (Negative) Urine Urobilinogen (<2.0) mg/dL Ur Leukocyte Esterase (Negative) Urine RBC (0-5) /hpf Urine WBC (0-5) /hpf Ur Squamous Epith Cells (0-4) /hpf Urine Mucus (None) /hpf Disposition Clinical Impression: Weakness, Anemia, Hypomagnesemia Disposition: ADMITTED IP TO THIS HOSP
[2023-01-22 18:52] LABS: Appearance,Urine Clear (Clear); Bilirubin,Urine Negative (Negative); Blood,Urine Trace (Negative); Color,Urine Yellow; Glucose,Urine (UA) Negative (Negative); Ketones,Urine 1+ (Negative); Leukocyte Esterase,Urine Negative (Negative); Mucus,Urine Rare /hpf; Nitrite,Urine Negative (Negative); Protein,Urine Trace (Negative); RBC,Urine <1 /hpf (0-5); Specific Gravity,Urine 1.022 (1.001-1.035); Squamous Epithelial Cell,Urine <1 /hpf (0-4); WBC,Urine 1 /hpf (0-5)
[2023-01-22 19:21] LABS: Anisocytosis Slight; Basophils % (A) 0 %; Eosinophils # (A) 0.1 k/uL (0-0.7); Eosinophils % (A) 1 %; HCT 29.2 % (34.0-46.0); HGB 8.7 gm/dL (11.4-16.0); Hypochromasia Marked; Lymphocytes # (A) 2.1 k/uL (1.0-4.8); Lymphocytes % (A) 20 %; MCH 18.3 pg (25.0-35.0); MCHC 29.7 g/dL (31.0-37.0); MCV 61.6 fL (80.0-100.0); Mean Platelet Volume 6.7; Microcytosis Marked; Monocytes # (A) 0.7 k/uL (0-1.0); Monocytes % (A) 6 %; Neutrophils # (A) 7.2 k/uL (1.3-7.7); Neutrophils % (A) 71 %; Platelet Count 335 k/uL (150-450); Poikilocytosis Moderate; RBC 4.74 m/uL (3.80-5.40); RDW 19.1 % (11.5-15.5); WBC 10.1 k/uL (3.8-10.6)
[2023-01-22 19:27] LABS: ALT 15 U/L (4-34); AST 19 U/L (14-36); African American GFR (CKD) >90 (>60 ml/min/1.73 sqM); Albumin 3.5 g/dL (3.5-5.0); Alkaline Phosphatase 110 U/L (38-126); Anion Gap 8 mmol/L; Blood Urea Nitrogen 16 mg/dL (7-17); Carbon Dioxide 26 mmol/L (22-30); Chloride 98 mmol/L (98-107); Glucose 139 mg/dL (74-99); Magnesium 1.3 mg/dL (1.6-2.3); Non-African American GFR(CKD) 87 (>60 ml/min/1.73 sqM); Potassium 3.5 mmol/L (3.5-5.1); Sodium 132 mmol/L (137-145); Total Bilirubin 0.5 mg/dL (0.2-1.3); Total Protein 6.3 g/dL (6.3-8.2)
--- NOTE | 2023-01-22 21:04 | XR ---
EXAMINATION TYPE: XR chest 2V DATE OF EXAM: 01/22/2023 COMPARISON: 10/13/2022 HISTORY: 87-year-old female with generalized weakness TECHNIQUE: AP and lateral views FINDINGS: Heart mildly enlarged. Apical scarring calcifications throughout the breasts. Tortuous/ectatic thorac ic aorta. Mild interstitial prominence is unchanged. No consolidation or pleural effusion. IMPRESSION: Mild cardiomegaly. Chronic changes without acute process seen.
[2023-01-22] MEDS ORDERED: NALOXONE 0.4 MG/ML 1 ML VIAL IV PRN (21:25)
[2023-01-22] MEDS: SODIUM CHLORIDE 0.9% 1,000 ML IV SCH (21:49)
[2023-01-22] MEDS ORDERED: KETOROLAC 15 MG/ML 1 ML VIAL IVP STA (22:04)
[2023-01-23] MEDS ORDERED: Mirabegron [Myrbetriq] 50 MG Tab.Er.24h PO SCH (12:00)
[2023-01-23] MEDS ORDERED: GABAPENTIN 100 MG CAP PO SCH (12:30)
[2023-01-23] MEDS ORDERED: DEXTROSE 50% SYRINGE 50 ML IVP PRN ×2 (12:32)
[2023-01-23] MEDS ORDERED: SERTRALINE 25 MG TAB PO SCH (13:00)
[2023-01-23 13:04] LABS: Glucose,Whole Blood 164 mg/dL (70-110)
[2023-01-23] MEDS: lisinopriL 5 MG TAB PO SCH (14:07)
[2023-01-23] MEDS: metFORMIN 500 MG TAB PO SCH ×2 (14:07→18:26)
[2023-01-23] MEDS: METOPROLOL TARTRATE 25 MG TAB PO SCH ×2 (14:07→21:27)
[2023-01-23] MEDS: INSULIN ASPART (NovoLOG) 100 UNIT/ML VIAL SQ SCH ×2 (14:09→18:26)
[2023-01-23] MEDS: PARoxetine 10 MG TAB PO SCH (14:09)
--- NOTE | 2023-01-23 16:01 | P.HPIM ---
History of Present Illness H&P Date: 01/23/23 Chief Complaint: Weakness 87-year-old patient, follows with Dr. Tristin Brennan. Chronic stable medical conditions include diabetes, hypertension, hypothyroid. Patient is a poor historian because of the blanks cognitive impairment. Brought into the ER by family as patient's feeling rather weak. Patient denies any obvious pain. No fever no chills. Did eat some this morning. Requiring assistance to go to the bathroom. Review of systems: GEN.: Decreased appetite tired EYES: None HEENT: None NECK: None RESPIRATORY: None CARDIOVASCULAR: None GASTROINTESTINAL: None GENITOURINARY: None MUSCULOSKELETAL: None LYMPHATICS: None HEMATOLOGICAL: None PSYCHIATRY: Forgetful NEUROLOGICAL: Needing assistance to walk INVESTIGATIONS, reviewed in the clinical context: White count 10.1 hemoglobin 8.7 platelets 335 sodium 132 potassium 3.5 creatinine 0.49 Troponin I less than 0.012 EKG tracing personally reviewed by me-normal sinus rhythm. Right bundle branch block. PVC. Chest x-ray film personally reviewed by me-lungs clear. Some unfolding of the aorta Assessment and plan: -Increasing asthenia. Exact cause unknown. No obvious evidence of infection form of UTI and pneumonia. PT OT. -Severe cognitive impairment. Suspect late onset Alzheimer's dementia Check TSH -Hyperlipidemia Lipitor 40 mg daily at bedtime -100 B12 deficiency Vitamin B12 daily -Essential hypertension Lopressor, Zestril -Diabetes mellitus type 2 on oral hypoglycemic Metformin 5 mg twice a day. Follow Accu-Cheks -Chronic urinary incontinence Continuemyrbetriq -Anxiety otherwise specified Change Zoloft to Paxil 10 mg day. -Insomnia *Trazodone 50 mg daily at bedtime Past Medical History Past Medical History: CVA/TIA, Diabetes Mellitus, Hypertension, Thyroid Disorder History of Any Multi-Drug Resistant Organisms: None Reported Past Surgical History: No Surgical Hx Reported Past Psychological History: No Psychological Hx Reported Smoking Status: Never smoker Past Alcohol Use History: None Reported Past Drug Use History: None Reported Medications and Allergies Home Medications Medication Instructions Recorded Confirmed Type Apixaban [Eliquis] 5 mg PO AC-BID 04/24/22 01/22/23 History Baclofen [Lioresal] 10 mg PO HS 04/24/22 01/22/23 History Cyanocobalamin (Vitamin B-12) 1,000 mcg PO DAILY@1200 04/24/22 01/22/23 History [Vitamin B-12] Gabapentin [Neurontin] 100 mg PO AC-BID 04/24/22 01/22/23 History Melatonin 3 mg PO HS 04/24/22 01/22/23 History Mirabegron [Myrbetriq] 50 mg PO DAILY@1200 04/24/22 01/22/23 History Sertraline [Zoloft] 25 mg PO DAILY 04/24/22 01/22/23 History Atorvastatin [Lipitor] 40 mg PO HS 10/13/22 01/22/23 History Metoprolol Tartrate [Lopressor] 25 mg PO Q12H 10/13/22 01/22/23 History lisinopriL [Zestril] 5 mg PO DAILY 10/13/22 01/22/23 History metFORMIN HCL 500 mg PO AC-BID 10/13/22 01/22/23 History Cephalexin [Keflex] 500 mg PO QID #10 cap 10/15/22 01/22/23 Rx Cholecalciferol [Vitamin D3 (25 50 mcg PO DAILY@1200 01/22/23 01/22/23 History Mcg = 1000 Iu)] Allergies Allergy/AdvReac Type Severity Reaction Status Date / Time No Known Allergies Allergy Verified 01/22/23 20:10 Physical Exam Vitals: Vital Signs Temp Pulse Pulse Resp BP BP Pulse Ox 01/23/23 07:15 98.1 F 79 19 188/89 95 01/23/23 02:12 97.7 F 79 18 145/65 94 L 01/22/23 23:32 98.6 F 77 18 154/72 94 L 01/22/23 22:28 100 20 183/96 95 01/22/23 21:00 87 20 183/96 95 01/22/23 20:00 77 24 155/83 96 01/22/23 17:45 97.6 F 86 18 169/88 95 Intake and Output 01/22/23 01/23/23 01/23/23 22:59 06:59 14:59 Output Total 200 Balance -200 Output: Urine 200 Other: Voiding Method Toilet Weight 63.503 kg Results CBC & Chem 7: 01/22/23 18:52 01/22/23 18:52 Labs: Abnormal Lab Results - Last 24 Hours (Table) 01/22/23 01/22/23 01/22/23 Range/Units 18:36 18:52 18:52 Hgb 8.7 L (11.4-16.0) gm/dL Hct 29.2 L (34.0-46.0) % MCV 61.6 L (80.0-100.0) fL MCH 18.3 L (25.0-35.0) pg MCHC 29.7 L (31.0-37.0) g/dL RDW 19.1 H (11.5-15.5) % Sodium 132 L (137-145) mmol/L Creatinine 0.49 L (0.52-1.04) mg/dL Glucose 139 H (74-99) mg/dL Magnesium 1.3 L (1.6-2.3) mg/dL Urine Protein Trace H (Negative) Urine Ketones 1+ H (Negative) Urine Blood Trace H (Negative) Urine Mucus Rare H (None) /hpf Thrombosis Risk Factor Assmnt - Choose All That Apply Any of the Below Risk Factors Present?: No Other Risk Factors: Yes Each Risk Factor Represents 3 Points: Age 75 years or older Other congenital or acquired thrombophilia - If yes, enter type in comment: No Thrombosis Risk Factor Assessment Total Risk Factor Score: 3 Thrombosis Risk Factor Assessment Level: Moderate Risk
[2023-01-23 17:27] LABS: Glucose,Whole Blood 202 mg/dL (70-110)
[2023-01-23] MEDS: APIXABAN 5 MG TAB PO SCH (18:26)
[2023-01-23 21:07] LABS: Glucose,Whole Blood 221 mg/dL (70-110)
[2023-01-23] MEDS: traZODone HCL 50 MG TAB PO SCH (21:23)
[2023-01-23] MEDS: MELATONIN 3 MG TABLET PO SCH (21:23)
[2023-01-23] MEDS: BACLOFEN 10 MG TAB PO SCH (21:23)
[2023-01-23] MEDS: ATORVASTATIN 40 MG TAB PO SCH (21:23)
[2023-01-23] MEDS: ACETAMINOPHEN TAB 325 MG TAB PO PRN (22:15)
[2023-01-23] MEDS: SODIUM CHLORIDE 0.9% 1,000 ML IV SCH (23:43)
[2023-01-24 07:11] LABS: Glucose,Whole Blood 177 mg/dL (70-110)
[2023-01-24] MEDS: lisinopriL 5 MG TAB PO SCH (08:24)
[2023-01-24] MEDS: INSULIN ASPART (NovoLOG) 100 UNIT/ML VIAL SQ SCH ×3 (08:24→17:50)
[2023-01-24] MEDS: PARoxetine 10 MG TAB PO SCH (08:24)
[2023-01-24] MEDS: metFORMIN 500 MG TAB PO SCH ×2 (08:24→17:49)
[2023-01-24] MEDS: APIXABAN 5 MG TAB PO SCH ×2 (08:24→17:50)
[2023-01-24] MEDS: METOPROLOL TARTRATE 25 MG TAB PO SCH ×2 (08:24→20:24)
[2023-01-24] MEDS: Mirabegron [Myrbetriq] 50 MG Tab.Er.24h PO SCH (12:18)
[2023-01-24] MEDS: CHOLECALCIFEROL 25 MCG (1000 IU) TABLET PO SCH (12:19)
[2023-01-24] MEDS: CYANOCOBALAMIN 500 MCG TAB PO SCH (12:19)
[2023-01-24 12:29] LABS: Glucose,Whole Blood 234 mg/dL (70-110)
[2023-01-24 17:27] LABS: Glucose,Whole Blood 225 mg/dL (70-110)
[2023-01-24 20:12] LABS: Glucose,Whole Blood 304 mg/dL (70-110)
[2023-01-24] MEDS: traZODone HCL 50 MG TAB PO SCH (20:24)
[2023-01-24] MEDS: BACLOFEN 10 MG TAB PO SCH (20:24)
[2023-01-24] MEDS: ATORVASTATIN 40 MG TAB PO SCH (20:24)
[2023-01-24] MEDS: MELATONIN 3 MG TABLET PO SCH (20:24)
--- NOTE | 2023-01-24 20:30 | P.PN ---
Progress Note - Text Progress Note Date: 01/24/23 Chief Complaint: Weakness 87-year-old patient, follows with Dr. Tristin Brennan. Chronic stable medical conditions include diabetes, hypertension, hypothyroid. Patient is a poor historian because of the blanks cognitive impairment. Brought into the ER by family as patient's feeling rather weak. Patient denies any obvious pain. No fever no chills. Did eat some this morning. Requiring assistance to go to the bathroom. January 24: Patient is started on Paxil and trazodone yesterday. Patient anxiety much better. Slept last day. His son at the bedside. Son spoke to the social services aide. Looking into possible rehab. We'll get back, to the caser up.. Eating about 75%. Active Medications Acetaminophen (Acetaminophen Tab 325 Mg Tab) 650 mg PO Q6HR PRN PRN Reason: Mild Pain or Fever > 100.5 Last Admin: 01/23/23 22:15 Dose: 650 mg Apixaban (Apixaban 5 Mg Tab) 5 mg PO AC-BID [facility]; Protocol Last Admin: 01/24/23 17:50 Dose: 5 mg Atorvastatin Calcium (Atorvastatin 40 Mg Tab) 40 mg PO HS [facility] Last Admin: 01/24/23 20:24 Dose: 40 mg Baclofen (Baclofen 10 Mg Tab) 10 mg PO HS [facility] Last Admin: 01/24/23 20:24 Dose: 10 mg Cholecalciferol (Cholecalciferol 25 Mcg (1000 Iu) Tablet) 50 mcg PO DAILY@1200 [facility] Last Admin: 01/24/23 12:19 Dose: 50 mcg Cyanocobalamin (Cyanocobalamin 500 Mcg Tab) 1,000 mcg PO DAILY@1200 [facility] Last Admin: 01/24/23 12:19 Dose: 1,000 mcg Dextrose/Water (Dextrose 50% Syringe 50 Ml) 25 ml IVP PER PROTOCOL PRN; Protocol PRN Reason: Hypoglycemia Dextrose/Water (Dextrose 50% Syringe 50 Ml) 50 ml IVP PER PROTOCOL PRN; Protocol PRN Reason: Hypoglycemia Insulin Aspart (Insulin Aspart (Novolog) 100 Unit/Ml Vial) 0 unit SQ AC-TID [facility]; Protocol Last Admin: 01/24/23 17:50 Dose: 2 unit Lisinopril (Lisinopril 5 Mg Tab) 5 mg PO DAILY [facility] Last Admin: 01/24/23 08:24 Dose: 5 mg Melatonin (Melatonin 3 Mg Tablet) 3 mg PO HS [facility] Last Admin: 01/24/23 20:24 Dose: 3 mg Metformin HCl (Metformin 500 Mg Tab) 500 mg PO AC-BID [facility] Last Admin: 01/24/23 17:49 Dose: 500 mg Metoprolol Tartrate (Metoprolol Tartrate 25 Mg Tab) 25 mg PO Q12HR [facility] Last Admin: 01/24/23 20:24 Dose: 25 mg Naloxone HCl (Naloxone 0.4 Mg/Ml 1 Ml Vial) 0.2 mg IV Q2M PRN PRN Reason: Opioid Reversal Mirabegron [ Myrbetriq] 50 Mg Tab .Er.24h 50 mg PO DAILY@1200 [facility] Last Admin: 01/24/23 12:18 Dose: Not Given Paroxetine HCl (Paroxetine 10 Mg Tab) 10 mg PO DAILY [facility] Last Admin: 01/24/23 08:24 Dose: 10 mg Trazodone HCl (Trazodone Hcl 50 Mg Tab) 50 mg PO [facility] Last Admin: 01/24/23 20:24 Dose: 50 mg INVESTIGATIONS, reviewed in the clinical context: TSH: 0.6-2 White count 10.1 hemoglobin 8.7 platelets 335 sodium 132 potassium 3.5 creatinine 0.49 Troponin I less than 0.012 EKG tracing personally reviewed by me-normal sinus rhythm. Right bundle branch block. PVC. Chest x-ray film personally reviewed by me-lungs clear. Some unfolding of the aorta Assessment and plan: -Asthenia possibly be from uncontrolled anxiety. : Better PT OT. -Severe cognitive impairment. Suspect late onset Alzheimer's dementia TSH normal -Hyperlipidemia Lipitor 40 mg daily at bedtime - B-12 vitamin deficiency Supplement -Essential hypertension Lopressor, Zestril -Diabetes mellitus type 2 on oral hypoglycemic: Uncontrolled with hyperglycemia Increase Metformin thousand mg twice a day. Follow Accu-Cheks -Chronic urinary incontinence Continue myrbetriq -Anxiety otherwise specified: Better Stop Zoloft . Start Paxil 10 mg day. -Insomnia: Better *Trazodone 50 mg daily at bedtime -Full code cabinet worker looking into rehab. Past Medical History Past Medical History: CVA/TIA, Diabetes Mellitus, Hypertension, Thyroid Disorder History of Any Multi-Drug Resistant Organisms: None Reported Past Surgical History: No Surgical Hx Reported Past Psychological History: No Psychological Hx Reported Smoking Status: Never smoker Past Alcohol Use History: None Reported Past Drug Use History: None Reported Medications and Allergies Home Medications Medication Instructions Recorded Confirmed Type Apixaban [Eliquis] 5 mg PO AC-BID 04/24/22 01/22/23 History Baclofen [Lioresal] 10 mg PO HS 04/24/22 01/22/23 History Cyanocobalamin (Vitamin B-12) 1,000 mcg PO DAILY@1200 04/24/22 01/22/23 History [Vitamin B-12] Gabapentin [Neurontin] 100 mg PO AC-BID 04/24/22 01/22/23 History Melatonin 3 mg PO HS 04/24/22 01/22/23 History Mirabegron [Myrbetriq] 50 mg PO DAILY@1200 04/24/22 01/22/23 History Sertraline [Zoloft] 25 mg PO DAILY 04/24/22 01/22/23 History Atorvastatin [Lipitor] 40 mg PO HS 10/13/22 01/22/23 History Metoprolol Tartrate [Lopressor] 25 mg PO Q12H 10/13/22 01/22/23 History lisinopriL [Zestril] 5 mg PO DAILY 10/13/22 01/22/23 History metFORMIN HCL 500 mg PO AC-BID 10/13/22 01/22/23 History Cephalexin [Keflex] 500 mg PO QID #10 cap 10/15/22 01/22/23 Rx Cholecalciferol [Vitamin D3 (25 50 mcg PO DAILY@1200 01/22/23 01/22/23 History Mcg = 1000 Iu)] Allergies Allergy/AdvReac Type Severity Reaction Status Date / Time No Known Allergies Allergy Verified 01/22/23 20:10 Physical Exam Vitals: Vital Signs Temp Pulse Pulse Resp BP BP Pulse Ox 01/23/23 07:15 98.1 F 79 19 188/89 95 01/23/23 02:12 97.7 F 79 18 145/65 94 L 01/22/23 23:32 98.6 F 77 18 154/72 94 L 01/22/23 22:28 100 20 183/96 95 01/22/23 21:00 87 20 183/96 95 01/22/23 20:00 77 24 155/83 96 01/22/23 17:45 97.6 F 86 18 169/88 95 Intake and Output 01/22/23 01/23/23 01/23/23 22:59 06:59 14:59 Output Total 200 Balance -200 Output: Urine 200 Other: Voiding Method Toilet Weight 63.503 kg Results CBC & Chem 7: 01/22/23 18:52 01/22/23 18:52 Labs: Abnormal Lab Results - Last 24 Hours (Table) 01/22/23 01/22/23 01/22/23 Range/Units 18:36 18:52 18:52 Hgb 8.7 L (11.4-16.0) gm/dL Hct 29.2 L (34.0-46.0) % MCV 61.6 L (80.0-100.0) fL MCH 18.3 L (25.0-35.0) pg MCHC 29.7 L (31.0-37.0) g/dL RDW 19.1 H (11.5-15.5) % Sodium 132 L (137-145) mmol/L Creatinine 0.49 L (0.52-1.04) mg/dL Glucose 139 H (74-99) mg/dL Magnesium 1.3 L (1.6-2.3) mg/dL Urine Protein Trace H (Negative) Urine Ketones 1+ H (Negative) Urine Blood Trace H (Negative) Urine Mucus Rare H (None) /hpf Thrombosis Risk Factor Assmnt - Choose All That Apply Any of the Below Risk Factors Present?: No Other Risk Factors: Yes Each Risk Factor Represents 3 Points: Age 75 years or older Other congenital or acquired thrombophilia - If yes, enter type in comment: No Thrombosis Risk Factor Assessment Total Risk Factor Score: 3 Thrombosis Risk Factor Assessment Level: Moderate Risk Additional CC's: Tristin Brennan
[2023-01-25 07:21] LABS: Glucose,Whole Blood 186 mg/dL (70-110)
[2023-01-25] MEDS: METOPROLOL TARTRATE 25 MG TAB PO SCH ×2 (10:16→20:49)
[2023-01-25] MEDS: metFORMIN 500 MG TAB PO SCH ×2 (10:16→18:03)
[2023-01-25] MEDS: APIXABAN 5 MG TAB PO SCH ×2 (10:16→18:03)
[2023-01-25] MEDS: INSULIN ASPART (NovoLOG) 100 UNIT/ML VIAL SQ SCH ×3 (10:17→18:04)
[2023-01-25] MEDS: PARoxetine 10 MG TAB PO SCH (10:17)
[2023-01-25] MEDS: ACETAMINOPHEN TAB 325 MG TAB PO PRN (10:19)
[2023-01-25] MEDS: LISINOPRIL-HCTZ 20-12.5 MG 1 EACH TAB PO SCH ×2 (10:20→20:51)
[2023-01-25 12:27] LABS: Glucose,Whole Blood 245 mg/dL (70-110)
[2023-01-25] MEDS: Mirabegron [Myrbetriq] 50 MG Tab.Er.24h PO SCH (13:08)
[2023-01-25] MEDS: MAGNESIUM OXIDE 400 MG TAB PO SCH ×2 (13:21→20:49)
[2023-01-25] MEDS: CYANOCOBALAMIN 500 MCG TAB PO SCH (13:21)
[2023-01-25] MEDS: CHOLECALCIFEROL 25 MCG (1000 IU) TABLET PO SCH (13:21)
[2023-01-25 17:39] LABS: Glucose,Whole Blood 239 mg/dL (70-110)
[2023-01-25 20:01] LABS: Glucose,Whole Blood 182 mg/dL (70-110)
[2023-01-25] MEDS: MELATONIN 3 MG TABLET PO SCH (20:49)
[2023-01-25] MEDS: BACLOFEN 10 MG TAB PO SCH (20:49)
[2023-01-25] MEDS: ATORVASTATIN 40 MG TAB PO SCH (20:49)
[2023-01-25] MEDS: traZODone HCL 50 MG TAB PO SCH (20:49)
--- NOTE | 2023-01-25 21:53 | P.PN ---
Progress Note - Text Progress Note Date: 01/25/23 Chief Complaint: Weakness 87-year-old patient, follows with Dr. Tristin Brennan. Chronic stable medical conditions include diabetes, hypertension, hypothyroid. Patient is a poor historian because of the blanks cognitive impairment. Brought into the ER by family as patient's feeling rather weak. Patient denies any obvious pain. No fever no chills. Did eat some this morning. Requiring assistance to go to the bathroom. January 24: Patient is started on Paxil and trazodone yesterday. Patient anxiety much better. Slept last day. His son at the bedside. Son spoke to the social insurance specialist. Looking into possible rehab. We'll get back, to the dependency case manager.. Eating about 75%. January 25: Blood pressure running high this morning. Lisinopril hydrochlorothiazide added.. Eating better. Active Medications Acetaminophen (Acetaminophen Tab 325 Mg Tab) 650 mg PO Q6HR PRN PRN Reason: Mild Pain or Fever > 100.5 Last Admin: 01/25/23 10:19 Dose: 650 mg Apixaban (Apixaban 5 Mg Tab) 5 mg PO AC-BID [facility]; Protocol Last Admin: 01/25/23 18:03 Dose: 5 mg Atorvastatin Calcium (Atorvastatin 40 Mg Tab) 40 mg PO [facility] Last Admin: 01/25/23 20:49 Dose: 40 mg Baclofen (Baclofen 10 Mg Tab) 10 mg PO [facility] Last Admin: 01/25/23 20:49 Dose: 10 mg Cholecalciferol (Cholecalciferol 25 Mcg (1000 Iu) Tablet) 50 mcg PO DAILY@1200 [facility] Last Admin: 01/25/23 13:21 Dose: 50 mcg Cyanocobalamin (Cyanocobalamin 500 Mcg Tab) 1,000 mcg PO DAILY@1200 [facility] Last Admin: 01/25/23 13:21 Dose: 1,000 mcg Dextrose/Water (Dextrose 50% Syringe 50 Ml) 25 ml IVP PER PROTOCOL PRN; Protocol PRN Reason: Hypoglycemia Dextrose/Water (Dextrose 50% Syringe 50 Ml) 50 ml IVP PER PROTOCOL PRN; Protocol PRN Reason: Hypoglycemia Lisinopril/HCTZ (Lisinopril-Hctz 20-12.5 Mg 1 Each Tab) 1 each PO BID [facility] Last Admin: 01/25/23 20:51 Dose: 1 each Insulin Aspart (Insulin Aspart (Novolog) 100 Unit/Ml Vial) 0 unit SQ AC-TID [facility]; Protocol Last Admin: 01/25/23 18:04 Dose: 2 unit Magnesium Oxide (Magnesium Oxide 400 Mg Tab) 400 mg PO BID [facility] Last Admin: 01/25/23 20:49 Dose: 400 mg Melatonin (Melatonin 3 Mg Tablet) 3 mg PO HS [facility] Last Admin: 01/25/23 20:49 Dose: 3 mg Metformin HCl (Metformin 500 Mg Tab) 1,000 mg PO BID-W/MEALS [facility] Last Admin: 01/25/23 18:03 Dose: 1,000 mg Metoprolol Tartrate (Metoprolol Tartrate 25 Mg Tab) 25 mg PO Q12HR [facility] Last Admin: 01/25/23 20:49 Dose: 25 mg Naloxone HCl (Naloxone 0.4 Mg/Ml 1 Ml Vial) 0.2 mg IV Q2M PRN PRN Reason: Opioid Reversal Mirabegron [ Myrbetriq] 50 Mg Tab .Er.24h 50 mg PO DAILY@1200 [facility] Last Admin: 01/25/23 13:08 Dose: Not Given Paroxetine HCl (Paroxetine 10 Mg Tab) 10 mg PO DAILY [facility] Last Admin: 01/25/23 10:17 Dose: 10 mg Trazodone HCl (Trazodone Hcl 50 Mg Tab) 50 mg PO [facility] Last Admin: 01/25/23 20:49 Dose: 50 mg INVESTIGATIONS, reviewed in the clinical context: TSH: 0.6-2 White count 10.1 hemoglobin 8.7 platelets 335 sodium 132 potassium 3.5 creatinine 0.49 Troponin I less than 0.012 EKG tracing personally reviewed by me-normal sinus rhythm. Right bundle branch block. PVC. Chest x-ray film personally reviewed by me-lungs clear. Some unfolding of the aorta Assessment and plan: -Asthenia possibly be from uncontrolled anxiety. : Better PT OT. -Severe cognitive impairment. Suspect late onset Alzheimer's dementia TSH normal -Hyperlipidemia Lipitor 40 mg daily at bedtime - B-12 vitamin deficiency Supplement -Essential hypertension, uncontrolled Lopressor, start Zestoretic 2012.5 twice a day -Diabetes mellitus type 2 on oral hypoglycemic: Uncontrolled with hyperglycemia Increase Metformin thousand mg twice a day. Follow Accu-Cheks -Chronic urinary incontinence Continue myrbetriq -Anxiety otherwise specified: Better Stop Zoloft . Start Paxil 10 mg day. -Insomnia: Better *Trazodone 50 mg daily at bedtime -Full code Blood pressure medication adjusted. We will watch overnight. Metformin dose increased yesterday. Per social insurance specialist patient to return home with therapy. Past Medical History Past Medical History: CVA/TIA, Diabetes Mellitus, Hypertension, Thyroid Disorder History of Any Multi-Drug Resistant Organisms: None Reported Past Surgical History: No Surgical Hx Reported Past Psychological History: No Psychological Hx Reported Smoking Status: Never smoker Past Alcohol Use History: None Reported Past Drug Use History: None Reported Medications and Allergies Home Medications Medication Instructions Recorded Confirmed Type Apixaban [Eliquis] 5 mg PO AC-BID 04/24/22 01/22/23 History Baclofen [Lioresal] 10 mg PO HS 04/24/22 01/22/23 History Cyanocobalamin (Vitamin B-12) 1,000 mcg PO DAILY@1200 04/24/22 01/22/23 History [Vitamin B-12] Gabapentin [Neurontin] 100 mg PO AC-BID 04/24/22 01/22/23 History Melatonin 3 mg PO HS 04/24/22 01/22/23 History Mirabegron [Myrbetriq] 50 mg PO DAILY@1200 04/24/22 01/22/23 History Sertraline [Zoloft] 25 mg PO DAILY 04/24/22 01/22/23 History Atorvastatin [Lipitor] 40 mg PO HS 10/13/22 01/22/23 History Metoprolol Tartrate [Lopressor] 25 mg PO Q12H 10/13/22 01/22/23 History lisinopriL [Zestril] 5 mg PO DAILY 10/13/22 01/22/23 History metFORMIN HCL 500 mg PO AC-BID 10/13/22 01/22/23 History Cephalexin [Keflex] 500 mg PO QID #10 cap 10/15/22 01/22/23 Rx Cholecalciferol [Vitamin D3 (25 50 mcg PO DAILY@1200 01/22/23 01/22/23 History Mcg = 1000 Iu)] Allergies Allergy/AdvReac Type Severity Reaction Status Date / Time No Known Allergies Allergy Verified 01/22/23 20:10 Physical Exam Vitals: Vital Signs Temp Pulse Pulse Resp BP BP Pulse Ox 01/23/23 07:15 98.1 F 79 19 188/89 95 01/23/23 02:12 97.7 F 79 18 145/65 94 L 01/22/23 23:32 98.6 F 77 18 154/72 94 L 01/22/23 22:28 100 20 183/96 95 01/22/23 21:00 87 20 183/96 95 01/22/23 20:00 77 24 155/83 96 01/22/23 17:45 97.6 F 86 18 169/88 95 Intake and Output 01/22/23 01/23/23 01/23/23 22:59 06:59 14:59 Output Total 200 Balance -200 Output: Urine 200 Other: Voiding Method Toilet Weight 63.503 kg Results CBC & Chem 7: 01/22/23 18:52 01/22/23 18:52 Labs: Abnormal Lab Results - Last 24 Hours (Table) 01/22/23 01/22/23 01/22/23 Range/Units 18:36 18:52 18:52 Hgb 8.7 L (11.4-16.0) gm/dL Hct 29.2 L (34.0-46.0) % MCV 61.6 L (80.0-100.0) fL MCH 18.3 L (25.0-35.0) pg MCHC 29.7 L (31.0-37.0) g/dL RDW 19.1 H (11.5-15.5) % Sodium 132 L (137-145) mmol/L Creatinine 0.49 L (0.52-1.04) mg/dL Glucose 139 H (74-99) mg/dL Magnesium 1.3 L (1.6-2.3) mg/dL Urine Protein Trace H (Negative) Urine Ketones 1+ H (Negative) Urine Blood Trace H (Negative) Urine Mucus Rare H (None) /hpf Thrombosis Risk Factor Assmnt - Choose All That Apply Any of the Below Risk Factors Present?: No Other Risk Factors: Yes Each Risk Factor Represents 3 Points: Age 75 years or older Other congenital or acquired thrombophilia - If yes, enter type in comment: No Thrombosis Risk Factor Assessment Total Risk Factor Score: 3 Thrombosis Risk Factor Assessment Level: Moderate Risk Additional CC's: Tristin Brennan
[2023-01-26 02:19] VITALS: PULSE 63
[2023-01-26 07:22] LABS: Glucose,Whole Blood 148 mg/dL (70-110)
[2023-01-26] MEDS: INSULIN ASPART (NovoLOG) 100 UNIT/ML VIAL SQ SCH (07:23)
[2023-01-26 07:38] VITALS: BP 158/73; RESP 17; TEMP 98
[2023-01-26] MEDS: PARoxetine 10 MG TAB PO SCH (08:11)
[2023-01-26] MEDS: METOPROLOL TARTRATE 25 MG TAB PO SCH (08:11)
[2023-01-26] MEDS: MAGNESIUM OXIDE 400 MG TAB PO SCH (08:11)
[2023-01-26] MEDS: metFORMIN 500 MG TAB PO SCH (08:11)
[2023-01-26] MEDS: APIXABAN 5 MG TAB PO SCH (08:11)
[2023-01-26] MEDS: LISINOPRIL-HCTZ 20-12.5 MG 1 EACH TAB PO SCH (08:11)
[2023-01-26 11:35] LABS: Glucose,Whole Blood 192 mg/dL (70-110)
[2023-01-26] MEDS: ACETAMINOPHEN TAB 325 MG TAB PO PRN (13:35)
--- NOTE | 2023-01-26 19:58 | P.DS ---
Providers Date of admission: 01/22/23 21:26 Expected date of discharge: 01/26/23 Attending physician: Kalia Stevens Primary care physician: Tristin Brennan [facility] Course: Chief Complaint: Weakness 87-year-old patient, follows with Dr. Tristin Brennan. Chronic stable medical conditions include diabetes, hypertension, hypothyroid. Patient is a poor historian because of the blanks cognitive impairment. Brought into the ER by family as patient's feeling rather weak. Patient denies any obvious pain. No fever no chills. Did eat some this morning. Requiring assistance to go to the bathroom. January 24: Patient is started on Paxil and trazodone yesterday. Patient anxiety much better. Slept last day. His son at the bedside. Son spoke to the home health care social worker. Looking into possible rehab. We'll get back, to the manager case.. Eating about 75%. January 26: Up and recommended. Comfortable. Discussed with the home health care social worker. Patient to go home with some help. Discussed with the family the bedside. Qu estions answered. Discussion and discharge planning more than 35 minutes On exam: Vitals: 98, 63, 17, 1 58 x 73, 94% room air Gen.: Up in a recliner. Comfortable Cardiovascular: First seconds are normal, no edema Psych: Answering simple questions. Not anxious INVESTIGATIONS, reviewed in the clinical context: Magnesium 1.3. TSH: 0.6-2 White count 10.1 hemoglobin 8.7 platelets 335 sodium 132 potassium 3.5 creatinine 0.49 Troponin I less than 0.012 EKG tracing personally reviewed by me-normal sinus rhythm. Right bundle branch block. PVC. Chest x-ray film personally reviewed by me-lungs clear. Some unfolding of the aorta Assessment and plan: -Asthenia possibly be from uncontrolled anxiety. : Better PT OT. -Severe cognitive impairment. Suspect late onset Alzheimer's dementia TSH normal -Hyperlipidemia Lipitor 40 mg daily at bedtime - B-12 vitamin deficiency Supplement -Essential hypertension Lopressor, Zestoretic 20/12.5 twice a day -Diabetes mellitus type 2 on oral hypoglycemic: Uncontrolled with hyperglycemia Metformin thousand mg twice a day. Follow Accu-Cheks -Chronic urinary incontinence Continue myrbetriq -Anxiety otherwise specified: Better Stop Zoloft . Start Paxil 10 mg day. -Insomnia: Better *Trazodone 50 mg daily at bedtime -Full code Disposition: Home Plan - Discharge Summary Discharge Rx Participant: No New Discharge Prescriptions: New traZODone HCL [Desyrel] 50 mg PO HS #30 tab Magnesium Oxide [Mag-Ox] 400 mg PO BID #20 tab metFORMIN HCL 1,000 mg PO BID #60 tablet PARoxetine [Paxil] 10 mg PO DAILY #30 tab Acetaminophen Tab [Tylenol] 650 mg PO Q6HR PRN tab PRN Reason: Mild Pain Or Fever > 100.5 Lisinopril-Hctz 20-12.5 mg [Zestoretic 20-12.5] 1 each PO BID #60 tab Continue Cyanocobalamin (Vitamin B-12) [Vitamin B-12] 1,000 mcg PO DAILY@1200 Mirabegron [Myrbetriq] 50 mg PO DAILY@1200 Apixaban [Eliquis] 5 mg PO AC-BID Baclofen [Lioresal] 10 mg PO HS Metoprolol Tartrate [Lopressor] 25 mg PO Q12H Atorvastatin [Lipitor] 40 mg PO HS Cholecalciferol [Vitamin D3 (25 Mcg = 1000 Iu)] 50 mcg PO DAILY@1200 Discontinued Gabapentin [Neurontin] 100 mg PO AC-BID metFORMIN HCL 500 mg PO AC-BID Sertraline [Zoloft] 25 mg PO DAILY Melatonin 3 mg PO HS lisinopriL [Zestril] 5 mg PO DAILY Cephalexin [Keflex] 500 mg PO QID #10 cap Discharge Medication List Apixaban [Eliquis] 5 mg PO AC-BID 04/24/22 [History] Baclofen [Lioresal] 10 mg PO HS 04/24/22 [History] Cyanocobalamin (Vitamin B-12) [Vitamin B-12] 1,000 mcg PO DAILY@1200 04/24/22 [History] Mirabegron [Myrbetriq] 50 mg PO DAILY@1200 04/24/22 [History] Atorvastatin [Lipitor] 40 mg PO HS 10/13/22 [History] Metoprolol Tartrate [Lopressor] 25 mg PO Q12H 10/13/22 [History] Cholecalciferol [Vitamin D3 (25 Mcg = 1000 Iu)] 50 mcg PO DAILY@1200 01/22/23 [History] Acetaminophen Tab [Tylenol] 650 mg PO Q6HR PRN tab 01/26/23 [Rx] Lisinopril-Hctz 20-12.5 mg [Zestoretic 20-12.5] 1 each PO BID #60 tab 01/26/23 [Rx] Magnesium Oxide [Mag-Ox] 400 mg PO BID #20 tab 01/26/23 [Rx] PARoxetine [Paxil] 10 mg PO DAILY #30 tab 01/26/23 [Rx] metFORMIN HCL 1,000 mg PO BID #60 tablet 01/26/23 [Rx] traZODone HCL [Desyrel] 50 mg PO HS #30 tab 01/26/23 [Rx] Follow up Appointment(s)/Referral(s): [facility] [NON-STAFF] - 1 Week Tristin Brennan MD [Primary Care Provider] - 1-2 days (The office will call you with an appointment date and time.) Discharge Disposition: HOME WITH HOME HEALTH SERVICES
== END 2023-01-26 12:26 | disposition home health service (06) ==
LOC: EC 17:28 → INTOOBSV 21:26 → 4SSUR 21:26 → UNDODISOB 21:26 → 5NMEDONC 21:41 → UNDODISIN 01-26 14:20
PROVIDERS: ADMIT Hospitalist; ATTEND Hospitalist
DX: R41.89 Other symptoms and signs involving cognitive functions and awareness (principal); E78.5 Hyperlipidemia, unspecified; E53.8 Deficiency of other specified B group vitamins; I10 Essential (primary) hypertension; E11.65 Type 2 diabetes mellitus with hyperglycemia; R32 Unspecified urinary incontinence; F41.9 Anxiety disorder, unspecified; G47.00 Insomnia, unspecified; D64.9 Anemia, unspecified; E83.42 Hypomagnesemia; E03.9 Hypothyroidism, unspecified; Z86.73 Personal history of transient ischemic attack (TIA), and cerebral infarction without residual deficits; Z79.01 Long term (current) use of anticoagulants; Z79.84 Long term (current) use of oral hypoglycemic drugs; Z79.899 Other long term (current) drug therapy
CPT/HCPCS: 96361 ×3; 96372 ×4; 96374; 96375; 99285; 36415; 93005; 97530; 97162; 97166; 80053; 84443; 83605; 83735 ×2; 84484; 85025; 81001; 71046; G0378 ×5; J3360; J1885

== ENCOUNTER 2023-03-03 17:25 | Observation (INO) | payer MEDICARE ==
[2023-03-03] MEDS ORDERED: METOPROLOL TARTRATE 25 MG TAB PO STA (18:32)
[2023-03-03] MEDS ORDERED: lisinopriL 20 MG TAB PO STA (18:32)
[2023-03-03 18:51] LABS: Anisocytosis Slight; Basophils % (A) 1 %; Eosinophils # (A) 0.1 k/uL (0-0.7); Eosinophils % (A) 1 %; HCT 26.7 % (34.0-46.0); HGB 8.2 gm/dL (11.4-16.0); Hypochromasia Marked; Lymphocytes # (A) 2.4 k/uL (1.0-4.8); Lymphocytes % (A) 28 %; MCH 19.1 pg (25.0-35.0); MCHC 30.7 g/dL (31.0-37.0); MCV 62.4 fL (80.0-100.0); Mean Platelet Volume 6.5; Microcytosis Marked; Monocytes # (A) 0.4 k/uL (0-1.0); Monocytes % (A) 5 %; Neutrophils # (A) 5.3 k/uL (1.3-7.7); Neutrophils % (A) 63 %; Platelet Count 482 k/uL (150-450); Poikilocytosis Moderate; RBC 4.27 m/uL (3.80-5.40); RDW 19.7 % (11.5-15.5); WBC 8.4 k/uL (3.8-10.6)
[2023-03-03 19:00] LABS: ALT 18 U/L (4-34); AST 24 U/L (14-36); African American GFR (CKD) >90 (>60 ml/min/1.73 sqM); Albumin 3.7 g/dL (3.5-5.0); Alkaline Phosphatase 93 U/L (38-126); Anion Gap 11 mmol/L; Blood Urea Nitrogen 21 mg/dL (7-17); Calcium 9.3 mg/dL (8.4-10.2); Carbon Dioxide 24 mmol/L (22-30); Chloride 94 mmol/L (98-107); Glucose 105 mg/dL (74-99); Non-African American GFR(CKD) >90 (>60 ml/min/1.73 sqM); Potassium 4.2 mmol/L (3.5-5.1); Sodium 129 mmol/L (137-145); Total Bilirubin 0.3 mg/dL (0.2-1.3); Total Protein 6.2 g/dL (6.3-8.2)
[2023-03-03 19:06] LABS: INR 0.9 (<1.2); Prothrombin Time 9.9 sec (9.0-12.0)
--- NOTE | 2023-03-03 20:06 | ED ---
Weakness HPI - General Chief complaint: Weakness Stated complaint: NVD Time Seen by Provider: 03/03/23 17:53 Source: patient Mode of arrival: ambulatory Limitations: altered mental status (Underlying dementia) - History of Present Illness Initial comments: This patient is an 87-year-old woman brought to have evaluation for generalized weakness and fatigue. Most of the history comes from patient family as the patient has some underlying dementia. They note that she has had episode of vomiting. They had not noted specific symptoms of infection. No definite fever at home. No cough or dyspnea. No change in urination MD Complaint: generalized weakness, lack of energy Onset/Timin -: days(s) Location: generalized Severity: moderate Improves with: none Worsens with: none Associated Symptoms: nausea/vomiting - Related Data Home Medications Medication Instructions Recorded Confirmed Apixaban [Eliquis] 5 mg PO AC-BID 04/24/22 01/22/23 Baclofen [Lioresal] 10 mg PO HS 04/24/22 01/22/23 Cyanocobalamin (Vitamin B-12) 1,000 mcg PO DAILY@1200 04/24/22 01/22/23 [Vitamin B-12] Mirabegron [Myrbetriq] 50 mg PO DAILY@1200 04/24/22 01/22/23 Atorvastatin [Lipitor] 40 mg PO HS 10/13/22 01/22/23 Metoprolol Tartrate [Lopressor] 25 mg PO Q12H 10/13/22 01/22/23 Cholecalciferol [Vitamin D3 (25 50 mcg PO DAILY@1200 01/22/23 01/22/23 Mcg = 1000 Iu)] Previous Rx's Medication Instructions Recorded Acetaminophen Tab [Tylenol] 650 mg PO Q6HR PRN tab 01/26/23 Lisinopril-Hctz 20-12.5 mg 1 each PO BID #60 tab 01/26/23 [Zestoretic 20-12.5] Magnesium Oxide [Mag-Ox] 400 mg PO BID #20 tab 01/26/23 PARoxetine [Paxil] 10 mg PO DAILY #30 tab 01/26/23 metFORMIN HCL 1,000 mg PO BID #60 tablet 01/26/23 traZODone HCL [Desyrel] 50 mg PO HS #30 tab 01/26/23 Allergies Allergy/AdvReac Type Severity Reaction Status Date / Time No Known Allergies Allergy Verified 03/03/23 17:50 Review of Systems ROS Statement: Those systems with pertinent positive or pertinent negative responses have been documented in the HPI. ROS Other: All systems not noted in ROS Statement are negative. Limitations: ROS unobtainable due to patients medical condition Constitutional: Denies: fever Respiratory: Denies: cough, dyspnea Cardiovascular: Denies: chest pain Gastrointestinal: Denies: abdominal pain, vomiting, diarrhea Musculoskeletal: Denies: back pain Neurological: Denies: headache, weakness Past Medical History Past Medical History: CVA/TIA, Diabetes Mellitus, Hypertension, Thyroid Disorder History of Any Multi-Drug Resistant Organisms: None Reported Past Surgical History: No Surgical Hx Reported Past Psychological History: No Psychological Hx Reported Smoking Status: Never smoker Past Alcohol Use History: None Reported Past Drug Use History: None Reported General Exam Limitations: no limitations General appearance: alert, in no apparent distress Head exam: Present: atraumatic, normocephalic Eye exam: Present: normal appearance. Absent: scleral icterus, conjunctival injection Neck exam: Present: normal inspection Respiratory exam: Present: normal lung sounds bilaterally. Absent: respiratory distress, wheezes, rales, rhonchi, stridor Cardiovascular Exam: Present: regular rate, normal rhythm, normal heart sounds. Absent: systolic murmur, diastolic murmur, rubs, gallop GI/Abdominal exam: Present: soft. Absent: distended, tenderness, guarding, rebound, rigid, mass Extremities exam: Present: normal inspection, normal capillary refill. Absent: pedal edema, calf tenderness Back exam: Present: normal inspection. Absent: CVA tenderness (R), CVA tenderness (L) Neurological exam: Present: alert. Absent: motor sensory deficit Skin exam: Present: warm, dry, intact, normal color. Absent: rash Course Vital Signs 03/03/23 17:43 Temperature 98.1 F Pulse Rate 67 Respiratory 18 Rate Blood Pressure 173/73 O2 Sat by Pulse 96 Oximetry EKG Findings - EKG Results: EKG: interpreted by TOBY, sinus rhythm (Rate 67 bpm) - Blocks, [place], Hypertrophy, ST Abn: AV and intraventricular conduction: right bundle branch block (fixed/intermittent, complete/incomplete), left anterior fascicular block QRS axis and voltage: indeterminate axis Medical Decision Making - Medical Decision Making Patient is an 87-year-old woman here with generalized weakness, the workup does reveal there is some mild hyponatremia. Patient may have a degree of dehydration as BUN / creatinine ratio is elevated. Patient's family states she is not at baseline. In light of this will provide gentle hydration to see if correcting sodium and lowering BUN to creatinine will resolve symptoms. - Lab Data Result diagrams: 03/03/23 18:38 03/03/23 18:38 Lab Results 03/03/23 03/03/23 03/03/23 Range/Units 18:38 18:38 18:38 WBC 8.4 (3.8-10.6) k/uL RBC 4.27 (3.80-5.40) m/uL Hgb 8.2 L (11.4-16.0) gm/dL Hct 26.7 L (34.0-46.0) % MCV 62.4 L (80.0-100.0) fL MCH 19.1 L (25.0-35.0) pg MCHC 30.7 L (31.0-37.0) g/dL RDW 19.7 H (11.5-15.5) % Plt Count 482 H (150-450) k/uL MPV 6.5 Neutrophils % 63 % Lymphocytes % 28 % Monocytes % 5 % Eosinophils % 1 % Basophils % 1 % Neutrophils # 5.3 (1.3-7.7) k/uL Lymphocytes # 2.4 (1.0-4.8) k/uL Monocytes # 0.4 (0-1.0) k/uL Eosinophils # 0.1 (0-0.7) k/uL Basophils # 0.0 (0-0.2) k/uL Hypochromasia Marked Poikilocytosis Moderate Anisocytosis Slight Microcytosis Marked PT 9.9 (9.0-12.0) sec INR 0.9 (<1.2) APTT 23.0 (22.0-30.0) sec Sodium 129 L (137-145) mmol/L Potassium 4.2 (3.5-5.1) mmol/L Chloride 94 L (98-107) mmol/L Carbon Dioxide 24 (22-30) mmol/L Anion Gap 11 mmol/L BUN 21 H (7-17) mg/dL Creatinine 0.41 L (0.52-1.04) mg/dL Est GFR (CKD-EPI)AfAm >90 (>60 ml/min/1.73 sqM) Est GFR (CKD-EPI)NonAf >90 (>60 ml/min/1.73 sqM) Glucose 105 H (74-99) mg/dL Plasma Lactic Acid Calvin (0.7-2.0) mmol/L Calcium 9.3 (8.4-10.2) mg/dL Total Bilirubin 0.3 (0.2-1.3) mg/dL AST 24 (14-36) U/L ALT 18 (4-34) U/L Alkaline Phosphatase 93 (38-126) U/L Troponin I (0.000-0.034) ng/mL Total Protein 6.2 L (6.3-8.2) g/dL Albumin 3.7 (3.5-5.0) g/dL 03/03/23 03/03/23 Range/Units 18:38 18:38 WBC (3.8-10.6) k/uL RBC (3.80-5.40) m/uL Hgb (11.4-16.0) gm/dL Hct (34.0-46.0) % MCV (80.0-100.0) fL MCH (25.0-35.0) pg MCHC (31.0-37.0) g/dL RDW (11.5-15.5) % Plt Count (150-450) k/uL MPV Neutrophils % % Lymphocytes % % Monocytes % % Eosinophils % % Basophils % % Neutrophils # (1.3-7.7) k/uL Lymphocytes # (1.0-4.8) k/uL Monocytes # (0-1.0) k/uL Eosinophils # (0-0.7) k/uL Basophils # (0-0.2) k/uL Hypochromasia Poikilocytosis Anisocytosis Microcytosis PT (9.0-12.0) sec INR (<1.2) APTT (22.0-30.0) sec Sodium (137-145) mmol/L Potassium (3.5-5.1) mmol/L Chloride (98-107) mmol/L Carbon Dioxide (22-30) mmol/L Anion Gap mmol/L BUN (7-17) mg/dL Creatinine (0.52-1.04) mg/dL Est GFR (CKD-EPI)AfAm (>60 ml/min/1.73 sqM) Est GFR (CKD-EPI)NonAf (>60 ml/min/1.73 sqM) Glucose (74-99) mg/dL Plasma Lactic Acid Calvin 1.8 (0.7-2.0) mmol/L Calcium (8.4-10.2) mg/dL Total Bilirubin (0.2-1.3) mg/dL AST (14-36) U/L ALT (4-34) U/L Alkaline Phosphatase (38-126) U/L Troponin I <0.012 (0.000-0.034) ng/mL Total Protein (6.3-8.2) g/dL Albumin (3.5-5.0) g/dL Disposition Clinical Impression: Weakness, Hyponatremia, Dehydration Disposition: ADMITTED IP TO THIS HOSP Condition: Fair Is patient prescribed a controlled substance at d/c from ED?: No
--- NOTE | 2023-03-03 20:28 | XR ---
EXAMINATION: XR chest 2V: 03/03/2023 6:53 PM CLINICAL INDICATION: Weakness TECHNIQUE: AP and lateral COMPARISON: 01/22/2023 FINDINGS: EKG leads. The lungs are clear. The pleural spaces are negative. The cardiac silhouette is not enlarged. The remainder of the mediastinal silhouette is unremarkable. The skeletal structures and soft tissues are negative for acute findings. IMPRESSION: No acute radiographic process.
[2023-03-03] MEDS ORDERED: NALOXONE 0.4 MG/ML 1 ML VIAL IV PRN (23:15)
[2023-03-04] MEDS: SODIUM CHLORIDE 0.9% 1,000 ML IV SCH ×2 (00:55→15:04)
[2023-03-04] MEDS: traZODone HCL 50 MG TAB PO SCH ×2 (00:55→21:33)
[2023-03-04] MEDS: ACETAMINOPHEN TAB 325 MG TAB PO PRN ×2 (05:45→11:48)
[2023-03-04] MEDS: APIXABAN 5 MG TAB PO SCH ×2 (08:48→21:32)
[2023-03-04] MEDS: METOPROLOL TARTRATE 25 MG TAB PO SCH ×2 (08:48→21:33)
[2023-03-04] MEDS: LISINOPRIL-HCTZ 20-12.5 MG 1 EACH TAB PO SCH ×2 (08:48→21:33)
[2023-03-04] MEDS: MAGNESIUM OXIDE 400 MG TAB PO SCH ×2 (08:48→21:33)
[2023-03-04] MEDS: metFORMIN 500 MG TAB PO SCH ×2 (08:48→21:33)
[2023-03-04] MEDS ORDERED: DEXTROSE 50% SYRINGE 50 ML IVP PRN ×2 (10:12)
--- NOTE | 2023-03-04 10:14 | P.HPIM ---
History of Present Illness H&P Date: 03/04/23 Chief Complaint: Generalized weakness worsening confusion * 87-year-old lady with past medical history significant for diabetes, hypertension, hypothyroid poor historian secondary to cognitive impairment presented to the emergency department brought in by family secondary to worsening confusion. * Workup initiated in ER included CBC which showed WBC of 8.4, hemoglobin 8.2 he matocrit 26 platelet 482. Serum chemistry showed sodium 129 potassium 4.2 chloride 94 BU and 21 creatinine 0.41 * Per daughter at bedside patient has been having progressive confusion with acute onset yesterday. They noted her blood pressure was significantly elevated * Patient does have previous history of CVA, however the symptoms improved significantly * Patient had complained of bilateral calf pain, per daughter patient was more disoriented and had progressive weakness in legs * CT head ordered after evaluation on medical floor * Venous ulcer lower extremity completed REVIEW OF SYSTEMS: Leg pain, weakness, CONSTITUTIONAL: No fever, no malaise, no fatigue. HEENT: No recent visual problems or hearing problems. Denied any sore throat. CARDIOVASCULAR: No chest pain, orthopnea, PND, no palpitations, no syncope. PULMONARY: No shortness of breath, no cough, no hemoptysis. GASTROINTESTINAL: No diarrhea, no nausea, no vomiting, no abdominal pain. NEUROLOGICAL: No headaches, no weakness, no numbness. HEMATOLOGICAL: Denies any bleeding or petechiae. GENITOURINARY: Denies any burning micturition, frequency, or urgency. MUSCULOSKELETAL/RHEUMATOLOGICAL: Denies any joint pain, swelling, or any muscle pain. ENDOCRINE: Denies any polyuria or polydipsia. PHYSICAL EXAMINATION: GENERAL: The patient is alert and oriented x1, not in any acute distress. . HEENT: Pupils are round and equally reacting to light. EOMI. CARDIOVASCULAR: S1 and S2 present. No murmurs, rubs, or gallops. PULMONARY: Chest is clear to auscultation, no wheezing or crackles. ABDOMEN: Soft, nontender, nondistended, normoactive bowel sounds. No palpable organomegaly. MUSCULOSKELETAL: No joint swelling or deformity. EXTREMITIES: No cyanosis, clubbing, or pedal edema. NEUROLOGICAL: Gross neurological examination did not reveal any focal deficits. Past Medical History Past Medical History: CVA/TIA, Diabetes Mellitus, Hypertension, Thyroid Disorder History of Any Multi-Drug Resistant Organisms: None Reported Past Surgical History: No Surgical Hx Reported Past Anesthesia/Blood Transfusion Reactions: No Reported Reaction Past Psychological History: No Psychological Hx Reported Smoking Status: Never smoker Past Alcohol Use History: None Reported Past Drug Use History: None Reported Medications and Allergies Home Medications Medication Instructions Recorded Confirmed Type Apixaban [Eliquis] 5 mg PO AC-BID 04/24/22 03/04/23 History Baclofen [Lioresal] 10 mg PO HS 04/24/22 03/04/23 History Cyanocobalamin (Vitamin B-12) 1,000 mcg PO DAILY@1200 04/24/22 03/04/23 History [Vitamin B-12] Mirabegron [Myrbetriq] 50 mg PO DAILY@1200 04/24/22 03/04/23 History Atorvastatin [Lipitor] 40 mg PO HS 10/13/22 03/04/23 History Metoprolol Tartrate [Lopressor] 25 mg PO Q12H 10/13/22 03/04/23 History Cholecalciferol [Vitamin D3 (25 50 mcg PO DAILY@1200 01/22/23 03/04/23 History Mcg = 1000 Iu)] Acetaminophen Tab [Tylenol] 650 mg PO Q6HR PRN tab 01/26/23 03/04/23 Rx Lisinopril-Hctz 20-12.5 mg 1 each PO BID #60 tab 01/26/23 03/04/23 Rx [Zestoretic 20-12.5] Magnesium Oxide [Mag-Ox] 400 mg PO BID #20 tab 01/26/23 03/04/23 Rx PARoxetine [Paxil] 10 mg PO DAILY #30 tab 01/26/23 03/04/23 Rx metFORMIN HCL 1,000 mg PO BID #60 tablet 01/26/23 03/04/23 Rx traZODone HCL [Desyrel] 50 mg PO HS #30 tab 01/26/23 03/04/23 Rx Allergies Allergy/AdvReac Type Severity Reaction Status Date / Time No Known Allergies Allergy Verified 03/03/23 17:50 Physical Exam Vitals: Vital Signs Temp Pulse Pulse Resp BP BP Pulse Ox 03/04/23 02:00 69 15 03/04/23 00:45 97.8 F 69 15 119/64 94 L 03/03/23 17:43 98.1 F 67 18 173/73 96 Intake and Output 03/03/23 03/04/23 03/04/23 22:59 06:59 14:59 Other: Voiding Method Toilet # Voids 1 Weight 63.503 kg 63.503 kg Results CBC & Chem 7: 03/03/23 18:38 03/03/23 18:38 Labs: Abnormal Lab Results - Last 24 Hours (Table) 03/03/23 03/03/23 Range/Units 18:38 18:38 Hgb 8.2 L (11.4-16.0) gm/dL Hct 26.7 L (34.0-46.0) % MCV 62.4 L (80.0-100.0) fL MCH 19.1 L (25.0-35.0) pg MCHC 30.7 L (31.0-37.0) g/dL RDW 19.7 H (11.5-15.5) % Plt Count 482 H (150-450) k/uL Sodium 129 L (137-145) mmol/L Chloride 94 L (98-107) mmol/L BUN 21 H (7-17) mg/dL Creatinine 0.41 L (0.52-1.04) mg/dL Glucose 105 H (74-99) mg/dL Total Protein 6.2 L (6.3-8.2) g/dL Thrombosis Risk Factor Assmnt - Choose All That Apply Any of the Below Risk Factors Present?: No Other Risk Factors: Yes Each Risk Factor Represents 3 Points: Age 75 years or older Other congenital or acquired thrombophilia - If yes, enter type in comment: No Thrombosis Risk Factor Assessment Total Risk Factor Score: 3 Thrombosis Risk Factor Assessment Level: Moderate Risk Assessment and Plan Assessment: Assessment and plan Progressive weakness with impaired cognition Generalized debility History of CVA Diabetes mellitus2 Hyperlipidemia Hypertension * Physical therapy occupational therapy evaluation, CT head ordered to rule out intracranial process * In regards to history of diabetes continue patient on correctional insulin, continue metformin * In regards to history of hypertension continue metoprolol * In regards to history of CVA continue Eliquis and Lipitor * Post status is full code until further discussion with family
[2023-03-04 11:58] LABS: Glucose,Whole Blood 133 mg/dL (70-110)
--- NOTE | 2023-03-04 13:40 | US ---
EXAMINATION TYPE: US venous doppler duplex LE BI DATE OF EXAM: 03/04/2023 1:22 PM COMPARISON: NONE CLINICAL INDICATION: Female, 87 years old with history of Calf swelling, DVT; Patient on blood thinne r, CVA. Pain and edema bilaterally, worse on the right SIDE PERFORMED: bilateral TECHNIQUE: The lower extremity deep venous system is examined utilizing real time linear array sonog rahat with graded compression, doppler sonography and color-flow sonography. VESSELS IMAGED: Common Femoral Vein Deep Femoral Vein Greater Saphenous Vein * Femoral Vein Popliteal Vein Small Saphenous Vein * Proximal Calf Veins (* superficial vessels) *Patient scanned sitting in chair Right Leg: no evidence of DVT as visualized. complex fluid collection right upper calf, just below p opliteal fossa = 7.7 x 2.3 x 5.2cm Left Leg: no evidence of DVT as visualized IMPRESSION: Grayscale, color doppler, spectral doppler imaging performed of the deep veins of the lo wer extremities. There is normal flow, compressibility, vascular waveforms.
[2023-03-04] MEDS: DICLOFENAC SODIUM GEL 100 GM TUBE TOPICAL SCH ×3 (15:02→21:34)
[2023-03-04] MEDS: NON FORMULARY DRUG (Mirabegron [Myrbetriq] 50 MG Tab.Er.24h) PO SCH (15:03)
[2023-03-04] MEDS: INSULIN ASPART (NovoLOG) 100 UNIT/ML VIAL SQ SCH ×3 (15:03→21:33)
--- NOTE | 2023-03-04 17:28 | CT ---
EXAMINATION TYPE: CT brain wo con CT DLP: 1185.0 mGycm, Automated exposure control for dose reduction was used. DATE OF EXAM: 03/04/2023 5:03 PM COMPARISON: 05/03/2022. CLINICAL INDICATION:Female, 87 years old with history of AMS, AMS. Generalized weakness. TECHNIQUE: Brain: Axial CT images of the brain were obtained with coronal and sagittal reformats created and rev iewed. Contrast used: None. Oral contrast used: None. FINDINGS: Brain: Extra-axial spaces: No abnormal extra-axial fluid collections. Ventricular system: Dilatation in proportion to cerebral atrophy. Cerebral parenchyma: Cerebral atrophy. No acute intraparenchymal hemorrhage or mass effect. The garcia -white junction is well differentiated. Scattered hypoattenuating areas are seen within the white mat ter. Cerebellum: Unremarkable. Mass effect: No evidence of midline shift. Intracranial vasculature: Atherosclerotic calcifications of the intracranial vessels. Soft tissues: Normal. Calvarium/osseous structures: No depressed skull fracture. Benign hyperostosis frontalis noted. Paranasal sinuses and mastoid air cells: Mild scattered paranasal sinus disease. Visualized orbits: Bilateral aphakia IMPRESSION: 1. No acute intracranial process. 2. Nonspecific white matter changes, likely secondary to chronic small vessel ischemic disease.
[2023-03-04 17:31] LABS: Glucose,Whole Blood 187 mg/dL (70-110)
[2023-03-04 20:49] LABS: Glucose,Whole Blood 197 mg/dL (70-110)
[2023-03-04] MEDS: ATORVASTATIN 40 MG TAB PO SCH (21:32)
[2023-03-05] MEDS: SODIUM CHLORIDE 0.9% 1,000 ML IV SCH ×2 (03:32→17:17)
[2023-03-05 07:52] LABS: Glucose,Whole Blood 154 mg/dL (70-110)
[2023-03-05] MEDS: metFORMIN 500 MG TAB PO SCH ×2 (08:26→20:20)
[2023-03-05] MEDS: LISINOPRIL-HCTZ 20-12.5 MG 1 EACH TAB PO SCH ×2 (08:26→20:20)
[2023-03-05] MEDS: INSULIN ASPART (NovoLOG) 100 UNIT/ML VIAL SQ SCH ×4 (08:26→22:25)
[2023-03-05] MEDS: METOPROLOL TARTRATE 25 MG TAB PO SCH ×2 (08:27→20:20)
[2023-03-05] MEDS: APIXABAN 5 MG TAB PO SCH ×2 (08:27→20:20)
[2023-03-05] MEDS: DICLOFENAC SODIUM GEL 100 GM TUBE TOPICAL SCH ×4 (08:27→20:20)
[2023-03-05] MEDS: MAGNESIUM OXIDE 400 MG TAB PO SCH ×2 (08:27→20:20)
[2023-03-05 09:56] LABS: HCT 29.8 % (37.2-46.3); HGB 8.4 d/dL (12.0-15.0); MCH 18.3 pg (27.0-32.0); MCHC 28.2 d/dL (32.0-37.0); MCV 65.1 FL (80.0-97.0); Mean Platelet Volume 8.9 FL (9.5-12.2); NRBC Per 100 WBC 0 X 10*3/uL (0.00-0.01); Platelet Count 536 X 10*3/uL (140-440); RBC 4.58 X 10*6/uL (4.10-5.20); RDW 21.7 % (11.5-14.5); WBC 6.94 X 10*3/uL (4.50-10.00)
[2023-03-05 10:47] LABS: BUN/Creat Ratio 22.17 Ratio (12.00-20.00); Blood Urea Nitrogen 13.3 mg/dL (9.0-27.0); Calcium 9.7 mg/dL (8.7-10.3); Carbon Dioxide 28.2 mmol/L (21.6-31.8); Chloride 94 mmol/L (96-109); Glucose 137 mg/dL (70-110); Potassium 4.1 mmol/L (3.5-5.5); Sodium 134 mmol/L (135-145)
[2023-03-05 11:11] LABS: Basophils # (A) 0.05 X 10*3/uL (0.00-0.10); Basophils % (A) 0.7 %; Eosinophils # (A) 0.11 X 10*3/uL (0.04-0.35); Eosinophils % (A) 1.6 %; Lymphocytes # (A) 1.89 X 10*3/uL (0.90-5.00); Lymphocytes % (A) 27.2 %; Microcytosis (M) 2+; Monocytes # (A) 0.48 X 10*3/uL (0.20-1.00); Monocytes % (A) 6.9 %; Neutrophils # (A) 4.39 X 10*3/uL (1.80-7.70); Neutrophils % (A) 63.3 %
[2023-03-05 12:18] LABS: Glucose,Whole Blood 149 mg/dL (70-110)
[2023-03-05] MEDS: NON FORMULARY DRUG (Mirabegron [Myrbetriq] 50 MG Tab.Er.24h) PO SCH (12:33)
[2023-03-05] MEDS: CYANOCOBALAMIN 500 MCG TAB PO SCH (13:23)
[2023-03-05] MEDS: CHOLECALCIFEROL 25 MCG (1000 IU) TABLET PO SCH (13:23)
--- NOTE | 2023-03-05 14:01 | P.PN ---
Subjective Progress Note Date: 03/05/23 * 87-year-old lady with past medical history significant for diabetes, hypertension, hypothyroid poor historian secondary to cognitive impairment presented to the emergency department brought in by family secondary to worsening confusion. * Workup initiated in ER included CBC which showed WBC of 8.4, hemoglobin 8.2 hematocrit 26 platelet 482. Serum chemistry showed sodium 129 potassium 4.2 chloride 94 BU and 21 creatinine 0.41 * Per daughter at bedside patient has been having progressive confusion with acute onset yesterday. They noted her blood pressure was significantly elevated * Patient does have previous history of CVA, however the symptoms improved significantly * Patient had complained of bilateral calf pain, per daughter patient was more disoriented and had progressive weakness in legs * CT head ordered after evaluation on medical floor * Venous us lower extremity completed negative for DVT * 03/05: Patient does have significant weakness, sister at bedside. Mentation has improved however need to people assistance will get physical therapy evaluation ultrasound findings reviewed does have a 7 x 5 cm right calf collection noted likely small hematoma. No DVT noted Objective - Vital Signs Vital signs: Vital Signs Temp 97.6 F 03/05/23 13:58 Pulse 63 03/05/23 13:58 Resp 16 03/05/23 13:58 BP 124/70 03/05/23 13:58 Pulse Ox 95 03/05/23 13:58 FiO2 Intake & Output 03/04/23 03/05/23 03/05/23 18:59 06:59 18:59 Intake Total 300 Balance 300 Intake: Oral 300 Other: Voiding Method Toilet Toilet External Catheter # Voids 3 2 - Exam PHYSICAL EXAMINATION: GENERAL: The patient is alert and oriented x1, not in any acute distress. . HEENT: Pupils are round and equally reacting to light. EOMI. CARDIOVASCULAR: S1 and S2 present. No murmurs, rubs, or gallops. PULMONARY: Chest is clear to auscultation, no wheezing or crackles. ABDOMEN: Soft, nontender, nondistended, normoactive bowel sounds. No palpable organomegaly. MUSCULOSKELETAL: No joint swelling or deformity. EXTREMITIES: No cyanosis, clubbing, or pedal edema. NEUROLOGICAL: Gross neurological examination did not reveal any focal deficits. - Labs CBC & Chem 7: 03/05/23 04:59 03/05/23 04:59 Labs: Abnormal Lab Results - Last 24 Hours (Table) 03/04/23 03/04/23 03/05/23 Range/Units 17:30 20:48 04:59 Hgb (12.0-15.0) d/dL Hct (37.2-46.3) % MCV (80.0-97.0) FL MCH (27.0-32.0) pg MCHC (32.0-37.0) d/dL RDW (11.5-14.5) % Plt Count (140-440) X 10*3/uL MPV (9.5-12.2) FL Microcytosis (manual) Sodium (135-145) mmol/L Chloride (96-109) mmol/L BUN/Creatinine Ratio (12.00-20.00) Ratio Glucose (70-110) mg/dL POC Glucose (mg/dL) 187 H 197 H (70-110) mg/dL Hemoglobin A1c 7.1 H (<=6.0) % 03/05/23 03/05/23 03/05/23 Range/Units 04:59 04:59 07:51 Hgb 8.4 L (12.0-15.0) d/dL Hct 29.8 L (37.2-46.3) % MCV 65.1 L (80.0-97.0) FL MCH 18.3 L (27.0-32.0) pg MCHC 28.2 L (32.0-37.0) d/dL RDW 21.7 H (11.5-14.5) % Plt Count 536 H (140-440) X 10*3/uL MPV 8.9 L (9.5-12.2) FL Microcytosis (manual) 2+ A Sodium 134 L (135-145) mmol/L Chloride 94 L (96-109) mmol/L BUN/Creatinine Ratio 22.17 H (12.00-20.00) Ratio Glucose 137 H (70-110) mg/dL POC Glucose (mg/dL) 154 H (70-110) mg/dL Hemoglobin A1c (<=6.0) % 03/05/23 Range/Units 12:16 Hgb (12.0-15.0) d/dL Hct (37.2-46.3) % MCV (80.0-97.0) FL MCH (27.0-32.0) pg MCHC (32.0-37.0) d/dL RDW (11.5-14.5) % Plt Count (140-440) X 10*3/uL MPV (9.5-12.2) FL Microcytosis (manual) Sodium (135-145) mmol/L Chloride (96-109) mmol/L BUN/Creatinine Ratio (12.00-20.00) Ratio Glucose (70-110) mg/dL POC Glucose (mg/dL) 149 H (70-110) mg/dL Hemoglobin A1c (<=6.0) % Assessment and Plan Assessment: Assessment and plan Progressive weakness with impaired cognition Generalized debility History of CVA Diabetes mellitus2 Hyperlipidemia Hypertension * Physical therapy occupational therapy evaluation, CT head negative intracranial process * In regards to history of diabetes continue patient on correctional insulin, continue metformin * In regards to history of hypertension continue metoprolol * In regards to history of CVA continue Eliquis and Lipitor * Post status is full code until further discussion with family * Waiting for physical therapy evaluation to discuss discharge disposition
[2023-03-05] MEDS: ACETAMINOPHEN TAB 325 MG TAB PO PRN (14:42)
[2023-03-05 17:07] LABS: Glucose,Whole Blood 161 mg/dL (70-110)
[2023-03-05] MEDS: traZODone HCL 50 MG TAB PO SCH (20:20)
[2023-03-05] MEDS: ATORVASTATIN 40 MG TAB PO SCH (20:20)
[2023-03-05 21:26] LABS: Glucose,Whole Blood 161 mg/dL (70-110)
[2023-03-06] MEDS: SODIUM CHLORIDE 0.9% 1,000 ML IV SCH ×2 (02:59→17:45)
[2023-03-06 07:28] LABS: Glucose,Whole Blood 128 mg/dL (70-110)
[2023-03-06] MEDS: INSULIN ASPART (NovoLOG) 100 UNIT/ML VIAL SQ SCH ×4 (07:47→23:03)
[2023-03-06] MEDS ORDERED: methocarbamoL 750 MG TAB PO SCH (09:00)
[2023-03-06] MEDS: LISINOPRIL-HCTZ 20-12.5 MG 1 EACH TAB PO SCH ×2 (09:44→20:50)
[2023-03-06] MEDS: METOPROLOL TARTRATE 25 MG TAB PO SCH ×2 (09:44→20:49)
[2023-03-06] MEDS: metFORMIN 500 MG TAB PO SCH ×2 (09:45→20:49)
[2023-03-06] MEDS: MAGNESIUM OXIDE 400 MG TAB PO SCH ×2 (09:45→20:49)
[2023-03-06] MEDS: DICLOFENAC SODIUM GEL 100 GM TUBE TOPICAL SCH ×4 (09:45→20:50)
[2023-03-06] MEDS: APIXABAN 5 MG TAB PO SCH ×2 (09:45→20:49)
--- NOTE | 2023-03-06 11:06 | XR ---
EXAMINATION TYPE: XR tibia fibula LT DATE OF EXAM: 03/06/2023 10:23 AM CLINICAL INDICATION:Female, 87 years old with history of Chronic left leg pain; [facility] COMPARISON: None TECHNIQUE: XR tibia fibula LT; tibia/fibula was examined in AP and lateral projections. FINDINGS: No evidence of any acute osseous pathology, joint dislocation, or soft tissue swelling is n oted. Degeneration changes of the knee with tibia plateau osteophytes. There is joint space narrowing of the knee also. IMPRESSION: No evidence of acute fracture. Moderate knee osteoarthrosis.
[2023-03-06 11:41] LABS: Glucose,Whole Blood 160 mg/dL (70-110)
[2023-03-06] MEDS: NON FORMULARY DRUG (Mirabegron [Myrbetriq] 50 MG Tab.Er.24h) PO SCH (12:06)
[2023-03-06] MEDS: CYANOCOBALAMIN 500 MCG TAB PO SCH (12:31)
[2023-03-06] MEDS: CHOLECALCIFEROL 25 MCG (1000 IU) TABLET PO SCH (12:31)
--- NOTE | 2023-03-06 13:37 | P.PN ---
Subjective Progress Note Date: 03/06/23 * 87-year-old lady with past medical history significant for diabetes, hypertension, hypothyroid poor historian secondary to cognitive impairment presented to the emergency department brought in by family secondary to worsening confusion. * Workup initiated in ER included CBC which showed WBC of 8.4, hemoglobin 8.2 hematocrit 26 platelet 482. Serum chemistry showed sodium 129 potassium 4.2 chloride 94 BU and 21 creatinine 0.41 * Per daughter at bedside patient has been having progressive confusion with acute onset yesterday. They noted her blood pressure was significantly elevated * Patient does have previous history of CVA, however the symptoms improved significantly * Patient had complained of bilateral calf pain, per daughter patient was more disoriented and had progressive weakness in legs * CT head ordered after evaluation on medical floor * Venous us lower extremity completed negative for DVT * 03/05: Patient does have significant weakness, sister at bedside. Mentation has improved however need to people assistance will get physical therapy evaluation ultrasound findings reviewed does have a 7 x 5 cm right calf collection noted likely small hematoma. No DVT noted * 03/06/23: Patient seen and evaluated bedside. Patient is alert and oriented to person and situation. Son at bedside, Tammy help with the pain Objective - Vital Signs Vital signs: Vital Signs Temp 97.3 F L 03/06/23 07:00 Pulse 64 03/06/23 07:00 Resp 16 03/06/23 07:00 BP 160/62 03/06/23 07:00 Pulse Ox 95 03/06/23 07:00 FiO2 Intake & Output 03/05/23 03/06/23 03/06/23 18:59 06:59 18:59 Output Total 950 1200 Balance -950 -1200 Output: Urine 950 1200 Other: Voiding Method External Catheter External Catheter # Voids 2 - Exam PHYSICAL EXAMINATION: GENERAL: The patient is alert and oriented x1, not in any acute distress. . HEENT: Pupils are round and equally reacting to light. EOMI. CARDIOVASCULAR: S1 and S2 present. No murmurs, rubs, or gallops. PULMONARY: Chest is clear to auscultation, no wheezing or crackles. ABDOMEN: Soft, nontender, nondistended, normoactive bowel sounds. No palpable organomegaly. MUSCULOSKELETAL: No joint swelling or deformity. EXTREMITIES: No cyanosis, clubbing, or pedal edema. NEUROLOGICAL: Gross neurological examination did not reveal any focal deficits. - Labs CBC & Chem 7: 03/05/23 04:59 03/05/23 04:59 Labs: Abnormal Lab Results - Last 24 Hours (Table) 03/05/23 03/05/23 03/06/23 Range/Units 17:06 21:24 07:27 POC Glucose (mg/dL) 161 H 161 H 128 H (70-110) mg/dL 03/06/23 Range/Units 11:40 POC Glucose (mg/dL) 160 H (70-110) mg/dL Assessment and Plan Assessment: Assessment and plan Progressive weakness with impaired cognition Generalized musculoskeletal pain with osteoarthrosis of the knee left Generalized debility History of CVA Diabetes mellitus2 Hyperlipidemia Hypertension * Physical therapy occupational therapy evaluation, CT head negative intracranial process * In regards to history of diabetes continue patient on correctional insulin, continue metformin * In regards to history of hypertension continue metoprolol * In regards to history of CVA continue Eliquis and Lipitor * Post status is full code until further discussion with family * Waiting for physical therapy evaluation to discuss discharge disposition
[2023-03-06] MEDS: methocarbamoL 500 MG TAB PO SCH ×3 (14:41→20:50)
[2023-03-06] MEDS: ACETAMINOPHEN TAB 325 MG TAB PO PRN (15:45)
[2023-03-06 17:35] LABS: Glucose,Whole Blood 130 mg/dL (70-110)
[2023-03-06] MEDS: traZODone HCL 50 MG TAB PO SCH (20:49)
[2023-03-06] MEDS: ATORVASTATIN 40 MG TAB PO SCH (20:49)
[2023-03-06 21:05] LABS: Glucose,Whole Blood 169 mg/dL (70-110)
[2023-03-07 06:12] LABS: Glucose,Whole Blood 137 mg/dL (70-110)
[2023-03-07] MEDS: INSULIN ASPART (NovoLOG) 100 UNIT/ML VIAL SQ SCH ×2 (06:17→12:19)
[2023-03-07] MEDS: SODIUM CHLORIDE 0.9% 1,000 ML IV SCH (06:31)
[2023-03-07] MEDS: APIXABAN 5 MG TAB PO SCH (07:48)
[2023-03-07] MEDS: MAGNESIUM OXIDE 400 MG TAB PO SCH (07:48)
[2023-03-07] MEDS: LISINOPRIL-HCTZ 20-12.5 MG 1 EACH TAB PO SCH (07:48)
[2023-03-07] MEDS: metFORMIN 500 MG TAB PO SCH (07:48)
[2023-03-07] MEDS: methocarbamoL 500 MG TAB PO SCH ×2 (07:48→14:11)
[2023-03-07] MEDS: METOPROLOL TARTRATE 25 MG TAB PO SCH (07:48)
[2023-03-07] MEDS: DICLOFENAC SODIUM GEL 100 GM TUBE TOPICAL SCH ×2 (07:49→14:10)
[2023-03-07 09:03] VITALS: BP 149/58; PULSE 74; RESP 15; TEMP 98.1
[2023-03-07] MEDS: NON FORMULARY DRUG (Mirabegron [Myrbetriq] 50 MG Tab.Er.24h) PO SCH (10:22)
[2023-03-07 11:11] LABS: Blood Urea Nitrogen 14.4 mg/dL (9.0-27.0); Calcium 9.4 mg/dL (8.7-10.3); Carbon Dioxide 24.3 mmol/L (21.6-31.8); Chloride 98 mmol/L (96-109); Glucose 177 mg/dL (70-110); Potassium 4.3 mmol/L (3.5-5.5); Sodium 136 mmol/L (135-145)
[2023-03-07] MEDS: CYANOCOBALAMIN 500 MCG TAB PO SCH (11:16)
[2023-03-07] MEDS: CHOLECALCIFEROL 25 MCG (1000 IU) TABLET PO SCH (11:16)
[2023-03-07 12:15] LABS: Glucose,Whole Blood 144 mg/dL (70-110)
--- NOTE | 2023-03-07 17:49 | P.DS ---
Providers Date of admission: 03/03/23 23:15 Expected date of discharge: 03/07/23 Attending physician: Kalia Stevens Primary care physician: Tristin Mcgrath [facility] Course: Hospital course: 87-year-old lady with past medical history significant for diabetes, hypertension, hypothyroid poor historian secondary to cognitive impairment presented to the emergency department brought in by family secondary to worsening confusion. * Workup initiated in ER included CBC which showed WBC of 8.4, hemoglobin 8.2 hematocrit 26 platelet 482. Serum chemistry showed sodium 129 potassium 4.2 chloride 94 BU and 21 creatinine 0.41 * Per daughter at bedside patient has been having progressive confusion with acute onset yesterday. They noted her blood pressure was significantly elevated * Patient does have previous history of CVA, however the symptoms improved significantly * Patient had complained of bilateral calf pain, per daughter patient was more disoriented and had progressive weakness in legs * CT head ordered after evaluation on medical floor * Venous us lower extremity completed negative for DVT * 03/05: Patient does have significant weakness, sister at bedside. Mentation has improved however need to people assistance will get physical therapy evaluation ultrasound findings reviewed does have a 7 x 5 cm right calf collection noted likely small hematoma. No DVT noted * 03/06/23: Patient seen and evaluated bedside. Patient is alert and oriented to person and situation. Son at bedside, Tammy help with the pain March 07: I assumed care of the patient today. Patient's son and daughter the bedside. Patient up in a chair. Eating fair. Discussed. They understand patient's condition is progressive. Patient did tolerate her diet. Son explained that patient's trazodone was discontinued by the family doctor. Patient had been sleeping fine except when getting up to urinate at night. After discussion trazodone was discontinued. For spasms baclofen also discontinued at home. Robaxin when necessary added for spasm. Questions answered. Patient be returning home with family. Discussion and discharge planning more than 35 minutes INVESTIGATIONS, reviewed in the clinical context: Chest x-ray: Nothing acute CT brain: Chronic changes Sodium 136 potassium 4.3 creatinine 0.6 white count 6.9 hemoglobin 8.4 platelets 536 Ultrasound Doppler lower extremity bilateral: No DVT. Fluid collection just below right popliteal fossa. EKG: Sinus rhythm. Right bundle branch block Assessment and plan: -Acute on chronic medical debility. Better -Severe cognitive impairment. late onset Alzheimer's dementia TSH normal -Hyperlipidemia Lipitor 40 mg daily at bedtime -Likely Ruiz's cyst right popliteal fossa -Primary osteoarthritis multiple joints Tylenol when necessary - B-12 vitamin deficiency Supplement -Essential hypertension Lopressor, Zestoretic 20/12.5 twice a day -Diabetes mellitus type 2 on oral hypoglycemic: Uncontrolled with hyperglycemia Metformin thousand mg twice a day. Follow Accu-Cheks -Chronic urinary incontinence myrbetriq -Anxiety otherwise specified: Better Paxil 10 mg day. -Full code Disposition: Home Plan - Discharge Summary Discharge Rx Participant: No New Discharge Prescriptions: New methocarbamoL [Robaxin] 500 mg PO QID PRN #60 tab PRN Reason: Spasms Continue Cyanocobalamin (Vitamin B-12) [Vitamin B-12] 1,000 mcg PO DAILY@1200 Magnesium Oxide [Mag-Ox] 400 mg PO BID #20 tab Mirabegron [Myrbetriq] 50 mg PO DAILY@1200 Apixaban [Eliquis] 5 mg PO AC-BID Metoprolol Tartrate [Lopressor] 25 mg PO Q12H Atorvastatin [Lipitor] 40 mg PO HS metFORMIN HCL 1,000 mg PO BID #60 tablet Acetaminophen Tab [Tylenol] 650 mg PO Q6HR PRN tab PRN Reason: Mild Pain Or Fever > 100.5 Lisinopril-Hctz 20-12.5 mg [Zestoretic 20-12.5] 1 each PO BID #60 tab Discontinued traZODone HCL [Desyrel] 50 mg PO HS #30 tab Baclofen [Lioresal] 10 mg PO HS Cholecalciferol [Vitamin D3 (25 Mcg = 1000 Iu)] 50 mcg PO DAILY@1200 No Action PARoxetine [Paxil] 10 mg PO DAILY #30 tab Discharge Medication List Apixaban [Eliquis] 5 mg PO AC-BID 04/24/22 [History] Cyanocobalamin (Vitamin B-12) [Vitamin B-12] 1,000 mcg PO DAILY@1200 04/24/22 [History] Mirabegron [Myrbetriq] 50 mg PO DAILY@1200 04/24/22 [History] Atorvastatin [Lipitor] 40 mg PO HS 10/13/22 [History] Metoprolol Tartrate [Lopressor] 25 mg PO Q12H 10/13/22 [History] Acetaminophen Tab [Tylenol] 650 mg PO Q6HR PRN tab 01/26/23 [Rx] Lisinopril-Hctz 20-12.5 mg [Zestoretic 20-12.5] 1 each PO BID #60 tab 01/26/23 [Rx] Magnesium Oxide [Mag-Ox] 400 mg PO BID #20 tab 01/26/23 [Rx] PARoxetine [Paxil] 10 mg PO DAILY #30 tab 01/26/23 [Rx] metFORMIN HCL 1,000 mg PO BID #60 tablet 01/26/23 [Rx] methocarbamoL [Robaxin] 500 mg PO QID PRN #60 tab 03/07/23 [Rx] Follow up Appointment(s)/Referral(s): Home Health,[facility] [NON-STAFF] - As Needed Tristin Brennan MD [Primary Care Provider] - 1-2 days Patient Instructions/Handouts: Weakness (DC) Discharge Disposition: HOME WITH HOME HEALTH SERVICES
== END 2023-03-07 14:45 | disposition home health service (06) ==
LOC: EC 17:25 → 6NMEDSUR 23:15
PROVIDERS: ADMIT Hospitalist; ATTEND Hospitalist
DX: R53.81 Other malaise (principal); E87.1 Hypo-osmolality and hyponatremia; E86.0 Dehydration; G30.1 Alzheimer's disease with late onset; F02.84 Dementia in other diseases classified elsewhere, unspecified severity, with anxiety; E53.8 Deficiency of other specified B group vitamins; E11.65 Type 2 diabetes mellitus with hyperglycemia; R32 Unspecified urinary incontinence; F41.9 Anxiety disorder, unspecified; I10 Essential (primary) hypertension; E03.9 Hypothyroidism, unspecified; E78.5 Hyperlipidemia, unspecified; M17.10 Unilateral primary osteoarthritis, unspecified knee; Z86.73 Personal history of transient ischemic attack (TIA), and cerebral infarction without residual deficits; Z79.01 Long term (current) use of anticoagulants; Z79.899 Other long term (current) drug therapy; Z79.84 Long term (current) use of oral hypoglycemic drugs
CPT/HCPCS: 96360; 96361; 96372 ×3; 99285; 36415; 94760 ×2; 93005; 97162; 97166; 80053; 80048 ×2; 83605; 84484; 85025 ×2; 85610; 85730; 83036; 73590; 71046; 93970; 70450; G0378 ×5

== ENCOUNTER 2023-03-15 13:27 | Inpatient (IN) | payer MEDICARE ==
[2023-03-15] MEDS ORDERED: SODIUM CHLORIDE 0.9% 500 ML 500 ML IV STA (13:34)
--- NOTE | 2023-03-15 13:54 | ED ---
General Adult HPI - General Chief complaint: Urogenital Stated complaint: UTI Time Seen by Provider: 03/15/23 13:29 Source: patient, EMS, RN notes reviewed Mode of arrival: EMS Limitations: altered mental status - History of Present Illness Initial comments: 87-year-old female presents emergency from via EMS chief complaint altered mental status. Patient recently was started on antibiotics for UTI has had worsening confusion last few days. Patient recent hospitalization for hyponatremia, weakness. Patient primarily lives at home by herself but has had family in the house last few days but secondary to increased confusion EMS was called. No reported fever. Patient had mild hypertension though unclear she took her blood pressure this morning. - Related Data Home Medications Medication Instructions Recorded Confirmed Apixaban [Eliquis] 5 mg PO AC-BID 04/24/22 03/04/23 Cyanocobalamin (Vitamin B-12) 1,000 mcg PO DAILY@1200 04/24/22 03/04/23 [Vitamin B-12] Mirabegron [Myrbetriq] 50 mg PO DAILY@1200 04/24/22 03/04/23 Atorvastatin [Lipitor] 40 mg PO HS 10/13/22 03/04/23 Metoprolol Tartrate [Lopressor] 25 mg PO Q12H 10/13/22 03/04/23 Previous Rx's Medication Instructions Recorded Acetaminophen Tab [Tylenol] 650 mg PO Q6HR PRN tab 01/26/23 Lisinopril-Hctz 20-12.5 mg 1 each PO BID #60 tab 01/26/23 [Zestoretic 20-12.5] Magnesium Oxide [Mag-Ox] 400 mg PO BID #20 tab 01/26/23 PARoxetine [Paxil] 10 mg PO DAILY #30 tab 01/26/23 metFORMIN HCL 1,000 mg PO BID #60 tablet 01/26/23 methocarbamoL [Robaxin] 500 mg PO QID PRN #60 tab 03/07/23 Allergies Allergy/AdvReac Type Severity Reaction Status Date / Time No Known Allergies Allergy Verified 03/03/23 17:50 Review of Systems ROS Statement: Those systems with pertinent positive or pertinent negative responses have been documented in the HPI. ROS Other: All systems not noted in ROS Statement are negative. Past Medical History Past Medical History: CVA/TIA, Diabetes Mellitus, Hypertension, Thyroid Disorder History of Any Multi-Drug Resistant Organisms: None Reported Past Surgical History: No Surgical Hx Reported Past Anesthesia/Blood Transfusion Reactions: No Reported Reaction Past Psychological History: No Psychological Hx Reported Smoking Status: Never smoker Past Alcohol Use History: None Reported Past Drug Use History: None Reported General Exam Limitations: altered mental status General appearance: alert, in no apparent distress Head exam: Present: atraumatic, normocephalic, normal inspection Eye exam: Present: normal appearance, PERRL, EOMI. Absent: scleral icterus, conjunctival injection, periorbital swelling ENT exam: Present: normal exam, normal oropharynx, mucous membranes moist Neck exam: Present: normal inspection, full ROM. Absent: tenderness, meningismus, lymphadenopathy Respiratory exam: Present: normal lung sounds bilaterally. Absent: respiratory distress, wheezes, rales, rhonchi, stridor Cardiovascular Exam: Present: regular rate, normal rhythm, normal heart sounds. Absent: systolic murmur, diastolic murmur, rubs, gallop, clicks GI/Abdominal exam: Present: soft, normal bowel sounds. Absent: distended, tenderness, guarding, rebound, rigid Neurological exam: Present: altered. Absent: oriented X3 Course Vital Signs 03/15/23 13:29 Temperature 97.8 F Pulse Rate 79 Respiratory 20 Rate Blood Pressure 196/104 O2 Sat by Pulse 97 Oximetry EKG Findings - EKG Comments: EKG Findings:: EKG performed at 13:43 sinus rhythm with rate of 87 VA 199 QRS 164 QT / QTC 420/473 sinus rhythm - EKG Results: EKG: interpreted by TOYB Medical Decision Making - Medical Decision Making Was pt. sent in by a medical professional or institution (, PA, DRILL PRESS OPERATOR NUMERICAL CONTROL, urgent care, hospital, or care home...) When possible be specific @ -No Did you speak to anyone other than the patient for history (EMS, parent, family, police, friend...)? What history was obtained from this source @ -No Did you review nursing and triage notes (agree or disagree)? Why? @ -I reviewed and agree with nursing and triage notes Were old charts reviewed (outside hosp., previous admission, EMS record, old EKG, old radiological studies, urgent care reports/EKG's, care home records)? Report findings @ -No old charts were reviewed Differential Diagnosis (chest pain, altered mental status, abdominal pain women, abdominal pain men, vaginal bleeding, weakness, fever, dyspnea, syncope, headache, dizziness, GI bleed, back pain, seizure, CVA, palpatations, mental health, musculoskeletal)? @ -Differential Weakness: Hypoglycemia, shock, sepsis, hyponatremia, anemia, infection, IL, ETOH, adverse medicine reaction, overdose, stroke, this is not meant to be an all-inclusive list. EKG interpreted by me (3pts min.). @ -As above X-rays interpreted by me (1pt min.). @ -None done CT interpreted by me (1pt min.). @ -None done U/S interpreted by me (1pt. min.). @ -None done What testing was considered but not performed or refused? (CT, X-rays, U/S, labs)? Why? @ -None What meds were considered but not given or refused? Why? @ -None Did you discuss the management of the patient with other professionals (professionals i.e. , PA, DRILL PRESS OPERATOR NUMERICAL CONTROL, lab, RT, psych nurse, nephrology social worker, advocacy director, teacher, real estate officer, piano case and bench assembler)? Give summary @ -Dr. Stevens for admission secondary hyponatremia and hypomagnesemia and hypokalemia Was smoking cessation discussed for >3mins.? @ -No Was critical care preformed (if so, how long)? @ -No Were there social determinants of health that impacted care today? How? (Homelessness, low income, unemployed, alcoholism, drug addiction, transportation, low edu. Level, literacy, decrease access to med. care, [facility], rehab)? @ -No Was there de-escalation of care discussed even if they declined (Discuss DNR or withdrawal of care, Hospice)? DNR status @ -No What co-morbidities impacted this encounter? (DM, HTN, Smoking, COPD, CAD, Cancer, CVA, ARF, Chemo, Hep., AIDS, mental health diagnosis, sleep apnea, morbid obesity)? @ -Dementia Was patient admitted / discharged? Hospital course, mention meds given and route, prescriptions, significant lab abnormalities, going to OR and other pertinent info. @ -Admitted patient has increasing confusion from hyponatremia, hypomagnesemia and hypokalemia patient will be admitted for IV fluid hydration, platelet replacement Undiagnosed new problem with uncertain prognosis? @ -No Drug Therapy requiring intensive monitoring for toxicity (Heparin, Nitro, Insulin, Cardizem)? @ -No Were any procedures done? @ -No Diagnosis/symptom? @ -Hyponatremia, hypomagnesemia, hypokalemia Acute, or Chronic, or Acute on Chronic? @ -Acute Uncomplicated (without systemic symptoms) or Complicated (systemic symptoms)? @ -[complicated Side effects of treatment? @ -No Exacerbation, Progression, or Severe Exacerbation? @ -No Poses a threat to life or bodily function? How? (Chest pain, USA, IL, pneumonia, PE, COPD, DKA, ARF, appy, cholecystitis, CVA, Diverticulitis, Homicidal, Suicidal, threat to staff... and all critical care pts) @ -No - Lab Data Result diagrams: 03/15/23 15:22 03/15/23 13:41 Lab Results 03/15/23 03/15/23 03/15/23 Range/Units 13:41 13:41 13:41 WBC (3.8-10.6) k/uL RBC (3.80-5.40) m/uL Hgb (11.4-16.0) gm/dL Hct (34.0-46.0) % MCV (80.0-100.0) fL MCH (25.0-35.0) pg MCHC (31.0-37.0) g/dL RDW (11.5-15.5) % Plt Count (150-450) k/uL MPV Neutrophils % % Lymphocytes % % Monocytes % % Eosinophils % % Basophils % % Neutrophils # (1.3-7.7) k/uL Lymphocytes # (1.0-4.8) k/uL Monocytes # (0-1.0) k/uL Eosinophils # (0-0.7) k/uL Basophils # (0-0.2) k/uL Hypochromasia Poikilocytosis Anisocytosis Microcytosis Sodium 120 L (137-145) mmol/L Potassium 3.4 L (3.5-5.1) mmol/L Chloride 84 L (98-107) mmol/L Carbon Dioxide 22 (22-30) mmol/L Anion Gap 14 mmol/L BUN 9 (7-17) mg/dL Creatinine 0.39 L (0.52-1.04) mg/dL Est GFR (CKD-EPI)AfAm >90 (>60 ml/min/1.73 sqM) Est GFR (CKD-EPI)NonAf >90 (>60 ml/min/1.73 sqM) Glucose 137 H (74-99) mg/dL Plasma Lactic Acid Calvin 1.4 (0.7-2.0) mmol/L Calcium 8.8 (8.4-10.2) mg/dL Magnesium 1.1 L (1.6-2.3) mg/dL Total Bilirubin 0.8 (0.2-1.3) mg/dL AST 44 H (14-36) U/L ALT 23 (4-34) U/L Alkaline Phosphatase 92 (38-126) U/L Total Protein 6.8 (6.3-8.2) g/dL Albumin 4.1 (3.5-5.0) g/dL Lipase 55 (23-300) U/L Urine Color Light Yellow Urine Appearance Clear (Clear) Urine pH 6.0 (5.0-8.0) Ur Specific [place] 1.021 (1.001-1.035) Urine Protein Trace H (Negative) Urine Glucose (UA) Negative (Negative) Urine Ketones 3+ H (Negative) Urine Blood Negative (Negative) Urine Nitrite Negative (Negative) Urine Bilirubin Negative (Negative) Urine Urobilinogen <2.0 (<2.0) mg/dL Ur Leukocyte Esterase Negative (Negative) 03/15/23 Range/Units 15:22 WBC 9.9 (3.8-10.6) k/uL RBC 4.81 (3.80-5.40) m/uL Hgb 9.3 L (11.4-16.0) gm/dL Hct 29.7 L (34.0-46.0) % MCV 61.7 L (80.0-100.0) fL MCH 19.4 L (25.0-35.0) pg MCHC 31.4 (31.0-37.0) g/dL RDW 19.3 H (11.5-15.5) % Plt Count 460 H (150-450) k/uL MPV 6.9 Neutrophils % 80 % Lymphocytes % 12 % Monocytes % 7 % Eosinophils % 0 % Basophils % 0 % Neutrophils # 7.9 H (1.3-7.7) k/uL Lymphocytes # 1.2 (1.0-4.8) k/uL Monocytes # 0.7 (0-1.0) k/uL Eosinophils # 0.0 (0-0.7) k/uL Basophils # 0.0 (0-0.2) k/uL Hypochromasia Marked Poikilocytosis Slight Anisocytosis Slight Microcytosis Marked Sodium (137-145) mmol/L Potassium (3.5-5.1) mmol/L Chloride (98-107) mmol/L Carbon Dioxide (22-30) mmol/L Anion Gap mmol/L BUN (7-17) mg/dL Creatinine (0.52-1.04) mg/dL Est GFR (CKD-EPI)AfAm (>60 ml/min/1.73 sqM) Est GFR (CKD-EPI)NonAf (>60 ml/min/1.73 sqM) Glucose (74-99) mg/dL Plasma Lactic Acid Calvin (0.7-2.0) mmol/L Calcium (8.4-10.2) mg/dL Magnesium (1.6-2.3) mg/dL Total Bilirubin (0.2-1.3) mg/dL AST (14-36) U/L ALT (4-34) U/L Alkaline Phosphatase (38-126) U/L Total Protein (6.3-8.2) g/dL Albumin (3.5-5.0) g/dL Lipase (23-300) U/L Urine Color Urine Appearance (Clear) Urine pH (5.0-8.0) Ur Specific [place] (1.001-1.035) Urine Protein (Negative) Urine Glucose (UA) (Negative) Urine Ketones (Negative) Urine Blood (Negative) Urine Nitrite (Negative) Urine Bilirubin (Negative) Urine Urobilinogen (<2.0) mg/dL Ur Leukocyte Esterase (Negative) Disposition Clinical Impression: Hypomagnesemia, Hyponatremia, Altered mental status Disposition: ADMITTED IP TO THIS HOSP Condition: Poor Referrals: Gabrielle Saab MD [REFERRING] - 1-2 days Time of Disposition: 15:50
[2023-03-15 14:44] LABS: Appearance,Urine Clear (Clear); Bilirubin,Urine Negative (Negative); Blood,Urine Negative (Negative); Color,Urine Light Yellow; Glucose,Urine (UA) Negative (Negative); Ketones,Urine 3+ (Negative); Leukocyte Esterase,Urine Negative (Negative); Nitrite,Urine Negative (Negative); Protein,Urine Trace (Negative); Specific Gravity,Urine 1.021 (1.001-1.035); Urobilinogen,Urine <2.0 mg/dL (<2.0)
[2023-03-15 14:56] LABS: ALT 23 U/L (4-34); AST 44 U/L (14-36); African American GFR (CKD) >90 (>60 ml/min/1.73 sqM); Albumin 4.1 g/dL (3.5-5.0); Alkaline Phosphatase 92 U/L (38-126); Anion Gap 14 mmol/L; Blood Urea Nitrogen 9 mg/dL (7-17); Calcium 8.8 mg/dL (8.4-10.2); Carbon Dioxide 22 mmol/L (22-30); Chloride 84 mmol/L (98-107); Glucose 137 mg/dL (74-99); Lipase 55 U/L (23-300); Magnesium 1.1 mg/dL (1.6-2.3); Non-African American GFR(CKD) >90 (>60 ml/min/1.73 sqM); Potassium 3.4 mmol/L (3.5-5.1); Sodium 120 mmol/L (137-145); Total Bilirubin 0.8 mg/dL (0.2-1.3); Total Protein 6.8 g/dL (6.3-8.2)
[2023-03-15] MEDS ORDERED: MAGNESIUM OXIDE 400 MG TAB PO STA (15:20)
[2023-03-15 15:29] LABS: Anisocytosis Slight; Basophils % (A) 0 %; Eosinophils % (A) 0 %; HCT 29.7 % (34.0-46.0); HGB 9.3 gm/dL (11.4-16.0); Hypochromasia Marked; Lymphocytes # (A) 1.2 k/uL (1.0-4.8); Lymphocytes % (A) 12 %; MCH 19.4 pg (25.0-35.0); MCHC 31.4 g/dL (31.0-37.0); MCV 61.7 fL (80.0-100.0); Mean Platelet Volume 6.9; Microcytosis Marked; Monocytes # (A) 0.7 k/uL (0-1.0); Monocytes % (A) 7 %; Neutrophils # (A) 7.9 k/uL (1.3-7.7); Neutrophils % (A) 80 %; Platelet Count 460 k/uL (150-450); Poikilocytosis Slight; RBC 4.81 m/uL (3.80-5.40); RDW 19.3 % (11.5-15.5); WBC 9.9 k/uL (3.8-10.6)
[2023-03-15] MEDS ORDERED: LORazepam 2 MG/ML INJ IV STA (15:31)
[2023-03-15] MEDS: MAGNESIUM SULFATE-D5W PMX 1 GM in DEXTROSE/WATER 1 100ML.BAG IVPB SCH ×3 (15:37→17:26)
[2023-03-15] MEDS: SODIUM CHLORIDE 0.9% 1,000 ML IV SCH (15:37)
[2023-03-15] MEDS ORDERED: NALOXONE 0.4 MG/ML 1 ML VIAL IV PRN (15:51)
[2023-03-15] MEDS ORDERED: methocarbamoL 500 MG TAB PO PRN (15:52)
[2023-03-15] MEDS ORDERED: POTASSIUM CHLORIDE 10 MEQ in WATER FOR INJECTION 1 100ML.BAG IVPB STA ×4 (16:05)
[2023-03-15] MEDS: APIXABAN 5 MG TAB PO SCH (17:35)
[2023-03-15] MEDS ORDERED: metFORMIN 500 MG TAB PO SCH (21:00)
[2023-03-15] MEDS ORDERED: DEXTROSE 50% SYRINGE 50 ML IVP PRN ×2 (22:06)
--- NOTE | 2023-03-15 22:10 | P.HPIM ---
History of Present Illness H&P Date: 03/15/23 Chief Complaint: Increasing agitation 87-year-old lady with past medical history significant for diabetes, hypertension, hypothyroid poor historian secondary to cognitive impairment presented to the emergency department brought in by family secondary to worsening confusion. Patient was recently discharged from the hospital. Admitted for increasing medical debility. Was doing fairly reasonably okay when discharged from here. Patient now presents with increasing confusion. Daughter and 2 other sons are present in the room. Last Tuesday days patient not really able to eat. Having some trouble swallowing. Otherwise normally able to eat. Patient has some weakness on the right side from a prior stroke. Some weakness reported on the left side. Patient is finding it difficult to find words. Patient is given Robaxin before I came in since patient very sleepy right now. Review of systems: Patient cannot tell because of dementia and very sleepy right now. Social history: Nonsmoker. No alcohol. Physical examination: VITAL SIGNS: [98.5, 74, 16, 120s in September 56, 95% room air] GENERAL: [BMI 23.3, laying in bed]. EYES: [Pupils equal. Conjunctiva sheeba]l. HEENT: [External appearance of nose and ears normal, oral cavity grossly normal]. NECK: [JVD not raised; masses not palpable]. HEART: [First and second heart sounds are normal; no edema]. LUNGS:[ Respiratory rate normal; clear to auscultation]. ABDOMEN: [Soft, nontender, liver spleen not palpable, no masses palpable]. PSYCH: [Alert and oriented x3; mood and affect sheeba]l. MUSCULOSKELETAL:No Clubbing/cyanosis;muscles-grossly intact NEUROLOGICAL: [Cranial nerves grossly intact; no facial asymmetry, power and sensation grossly intact]. LYMPHATICS: [No lymph nodes palpable in the axilla and neck] INVESTIGATIONS, reviewed in the clinical context: 03/15/2023: White count 9.9 hemoglobin 9.3 platelets 460 sodium 120 potassium 3.4 BUN 19 creatinine 0.39 UA: Ketones 3+ Assessment and plan: -Patient has a worsening mental changes and last 3-4 days. Finding it difficult to finding words. Some weakening or cramping on the left side. Altered mentation. Could be delirium versus stroke. Computed tomography scan brain. Carotid Doppler. Neuro checks. Consult neurology. Patient is on eliquis from before. Add baby aspirin. -chronic medical debility -Severe cognitive impairment. late onset Alzheimer's dementia TSH normal -Hyponatremia. Possibly hypervolemic patient not be eating drinking well for last 3 days. Saline -Hyperlipidemia Lipitor 40 mg daily at bedtime -Likely Ruiz's cyst right popliteal fossa -Primary osteoarthritis multiple joints Tylenol when necessary - B-12 vitamin deficiency Supplement -Essential hypertension Lopressor, Zestoretic 20/12.5 twice a day -Diabetes mellitus type 2 on oral hypoglycemic: Uncontrolled with hyperglycemia Metformin hold. Follow Accu-Cheks with sliding scale -Chronic urinary incontinence myrbetriq -Anxiety otherwise specified: Paxil 10 mg day. -Full code Care was discussed with patient's daughter and 2 sons at the bedside. Consult neuro. Neuro workup. Speech consult. Given the complexity and severity of patient's condition expect the patient to be in the hospital at least for 2 overnights Past Medical History Past Medical History: CVA/TIA, Diabetes Mellitus, Hypertension, Thyroid Disorder History of Any Multi-Drug Resistant Organisms: None Reported Past Surgical History: No Surgical Hx Reported Past Anesthesia/Blood Transfusion Reactions: No Reported Reaction Past Psychological History: No Psychological Hx Reported Smoking Status: Never smoker Past Alcohol Use History: None Reported Past Drug Use History: None Reported Medications and Allergies Home Medications Medication Instructions Recorded Confirmed Type Apixaban [Eliquis] 5 mg PO AC-BID 04/24/22 03/15/23 History Cyanocobalamin (Vitamin B-12) 1,000 mcg PO DAILY@1200 04/24/22 03/15/23 History [Vitamin B-12] Mirabegron [Myrbetriq] 50 mg PO DAILY@1200 04/24/22 03/15/23 History Atorvastatin [Lipitor] 40 mg PO HS 10/13/22 03/15/23 History Metoprolol Tartrate [Lopressor] 25 mg PO Q12H 10/13/22 03/15/23 History Acetaminophen Tab [Tylenol] 650 mg PO Q6HR PRN tab 01/26/23 03/15/23 Rx Magnesium Oxide [Mag-Ox] 400 mg PO BID #20 tab 01/26/23 03/15/23 Rx PARoxetine [Paxil] 10 mg PO DAILY #30 tab 01/26/23 03/15/23 Rx metFORMIN HCL 1,000 mg PO BID #60 tablet 01/26/23 03/15/23 Rx methocarbamoL [Robaxin] 500 mg PO QID PRN #60 tab 03/07/23 03/15/23 Rx Lisinopril-Hctz 20-12.5 mg 1 tab PO BID 03/15/23 03/15/23 History [Zestoretic 20-12.5] Sulfamethox-Tmp 800-160Mg [Bactrim 1 tab PO BID 03/15/23 03/15/23 History DS 800-160 mg] Allergies Allergy/AdvReac Type Severity Reaction Status Date / Time No Known Allergies Allergy Verified 03/15/23 17:17 Physical Exam Vitals: Vital Signs Temp Pulse Pulse Resp BP BP Pulse Ox 03/15/23 21:22 98.5 F 74 16 127/56 95 03/15/23 20:02 86 18 145/55 93 L 03/15/23 17:30 100 18 142/93 03/15/23 16:00 91 19 171/75 03/15/23 15:30 80 18 175/75 03/15/23 15:00 80 16 151/56 03/15/23 14:30 74 18 156/69 03/15/23 13:29 97.8 F 79 20 196/104 97 Intake and Output 03/15/23 03/15/23 03/15/23 06:59 14:59 22:59 Other: Weight 63.503 kg 63.503 kg Results CBC & Chem 7: 03/15/23 15:22 03/15/23 13:41 Labs: Abnormal Lab Results - Last 24 Hours (Table) 03/15/23 03/15/23 03/15/23 Range/Units 13:41 13:41 15:22 Hgb 9.3 L (11.4-16.0) gm/dL Hct 29.7 L (34.0-46.0) % MCV 61.7 L (80.0-100.0) fL MCH 19.4 L (25.0-35.0) pg RDW 19.3 H (11.5-15.5) % Plt Count 460 H (150-450) k/uL Neutrophils # 7.9 H (1.3-7.7) k/uL Sodium 120 L (137-145) mmol/L Potassium 3.4 L (3.5-5.1) mmol/L Chloride 84 L (98-107) mmol/L Creatinine 0.39 L (0.52-1.04) mg/dL Glucose 137 H (74-99) mg/dL Magnesium 1.1 L (1.6-2.3) mg/dL AST 44 H (14-36) U/L Urine Protein Trace H (Negative) Urine Ketones 3+ H (Negative)
[2023-03-15] MEDS: METOPROLOL TARTRATE 25 MG TAB PO SCH (23:36)
[2023-03-15] MEDS: LISINOPRIL-HCTZ 20-12.5 MG 1 EACH TAB PO SCH (23:36)
[2023-03-15] MEDS: ASPIRIN 81 MG PO SCH (23:37)
[2023-03-16] MEDS: SODIUM CHLORIDE 0.9% 1,000 ML IV SCH ×5 (05:17→21:40)
[2023-03-16 07:59] LABS: Glucose,Whole Blood 133 mg/dL (70-110)
--- NOTE | 2023-03-16 08:41 | US ---
EXAMINATION TYPE: US carotid duplex BILAT DATE OF EXAM: 03/16/2023 COMPARISON: NONE CLINICAL INDICATION: Female, 87 years old with history of Changes speech,; speech changes TECHNIQUE: Carotid duplex ultrasound examination. Indirect Doppler criteria was utilized. FINDINGS: EXAM MEASUREMENTS: RIGHT: Peak Systolic Velocity (PSV) cm/sec ----- Right CCA: 61.2 ----- Right ICA: 82.0 ----- Right ECA: 125.9 ICA/CCA ratio: 1.3 RIGHT: End Diastole cm/sec ----- Right CCA: 14.2 ----- Right ICA: 0.0 ----- Right ECA: 5.7 LEFT: Peak Systolic Velocity (PSV) cm/sec ----- Left CCA: 74.6 ----- Left ICA: 82.7 ----- Left ECA: 86.6 ICA/CCA ratio: 1.1 LEFT: End Diastole cm/sec ----- Left CCA: 15.5 ----- Left ICA: 16.7 ----- Left ECA: 0.0 VERTEBRALS (direction of flow): Right Vertebral: Antegrade Left Vertebral: Antegrade Rhythm: Normal SLEEVE SETTER NOTES: No elevated velocities, plaque noted in bilateral bulbs, and LT proximal CCA Exam technically difficult due to lack of patient cooperation, especially on right side with tortuous deep diving vessels IMPRESSION: No definite hemodynamically significant stenosis although the examination is technically challenging as noted above. Criteria for Assigning % of Stenosis / Diameter reduction (Estimation based on the indirect measurements of the internal carotid artery velocities (ICA PSV). 1. Normal (no stenosis)=ICA PSV < 125 cm/s: ratio < 2.0: ICA EDV<40 cm/s. 2. Less than 50% stenosis=ICA PSV < 125 cm/s: ratio < 2.0: ICA EDV<40 cm/s. 3. 50 to 69% stenosis=ICA PSV of 125 to 230 cm/s: ration 2.0 ? 4.0: ICA EDV 40-100 cm/s. 4. Greater than 70% stenosis to near occlusion= ICA PSV > 230 cm/s: ratio > 4.0: ICA EDV > 100 cm/s. 5. Near occlusion= ICA PSV velocities may be low or undetectable: variable ratio and ICA EDV. 6. Total occlusion=unable to detect flow.
[2023-03-16] MEDS: INSULIN ASPART (NovoLOG) 100 UNIT/ML VIAL SQ SCH ×3 (09:01→17:24)
--- NOTE | 2023-03-16 09:47 | CT ---
EXAMINATION TYPE: CT brain wo con DATE OF EXAM: 03/16/2023 COMPARISON: 03/04/2023 HISTORY: left sided weakness for a "few days", change in speech. Best possible images due to patient' s forgetfulness CT DLP: 1219.40 mGycm Automated exposure control for dose reduction was used. FINDINGS: Moderate degenerative change with moderate hypoattenuation in the white matter most typical of remote microvascular ischemia. No midline shift. No acute hemorrhage or mass effect. Hyperostosis of the calvarium. Craniocervical junction maintained. Calvarium is intact. Orbits are sy mmetric. Changes of sinusitis. Intracranial atherosclerotic changes. Low-attenuation involving the ex ternal capsule bilaterally compatible with remote ischemia. There is a more focal area of low attenuation on axial image 45 within the right parietal white matte r is more pronounced on today's exam IMPRESSION: 1. No acute hemorrhage or mass effect. There is a small area of low attenuation superior right pariet al white matter more pronounced on today's exam relative to prior. This may represent an area of suba cute ischemia. Correlate clinically.
[2023-03-16] MEDS: ASPIRIN 81 MG PO SCH (10:04)
[2023-03-16] MEDS: APIXABAN 5 MG TAB PO SCH ×2 (10:04→16:59)
[2023-03-16] MEDS: METOPROLOL TARTRATE 25 MG TAB PO SCH ×2 (10:04→20:42)
[2023-03-16] MEDS: LISINOPRIL-HCTZ 20-12.5 MG 1 EACH TAB PO SCH (10:04)
[2023-03-16] MEDS: PATIENT'S OWN (Mirabegron [Myrbetriq] 50 MG Tab.Er.24h) PO SCH (10:09)
[2023-03-16 12:28] LABS: Glucose,Whole Blood 119 mg/dL (70-110)
[2023-03-16] MEDS: PARoxetine 10 MG TAB PO SCH (12:32)
[2023-03-16 13:03] LABS: African American GFR (CKD) >90 (>60 ml/min/1.73 sqM); Anion Gap 11 mmol/L; Blood Urea Nitrogen 6 mg/dL (7-17); Calcium 8.5 mg/dL (8.4-10.2); Carbon Dioxide 21 mmol/L (22-30); Chloride 89 mmol/L (98-107); Glucose 109 mg/dL (74-99); Non-African American GFR(CKD) >90 (>60 ml/min/1.73 sqM); Potassium 3.5 mmol/L (3.5-5.1); Sodium 121 mmol/L (137-145)
--- NOTE | 2023-03-16 13:06 | P.CNNES ---
History of Present Illness Consult date: 03/16/23 Requesting physician: Kalia Stevens Reason for Consult: Possible stroke History of Present Illness: Patient is a 87-year-old right-handed female with history of dementia came to the hospital by ambulance yesterday at 1:27 PM for altered mental status. Patient not able to provide any history. Patient's son and daughter were both present, who provided the history. Patient was admitted to the hospital from 03/03/2023 and discharged on 03/07/2023 and was found to have a UTI. Discharge diagnoses however was acute and chronic medical disability, severe cognitive impairment, hyperlipidemia Ruiz's cyst right popliteal fossa, osteoarthritis, B12 deficiency, hypertension, diabetes, chronic urinary incontinence, anxiety. Patient was having leg cramps, for which she was discharged on Robaxin 500 mg 3 times a day when necessary. Since then patient has been slightly more confused, not knowing what is going around her. However she got acutely worse on the weekend and was brought to the hospital yesterday on Tuesday. Patient's daughter states that on the weekend, she was trying to reach. At baseline she is able to walk and feed herself but on the weekend she did not want to get out of bed. Has to be lifted. She always complained of pain in the right leg, but lately she has been complaining of pain in the left leg. Her left arm is hurting. At baseline she usually sits up, watches TV, goes to the bathroom by herself with a walker which she has been using for last 2 years since her stroke. She can take shower by herself. However at this time she is completely dysfunctional. As per EMS flow sheet, when they arrived on the scene, patient's son was waiting in the garage for EMS. Son mentioned that patient was recently diagnosed with a UTI. She was placed on antibiotics and then the medication was switched to a new antibiotic on Tuesday 2 days prior. Patient has not been getting any better according to the son. She has not gotten out of bed for couple days and is very confused and has not been eating or drinking. Patient was laying in her bed in the bedroom. When EMS approached the patient, she was very agitated and restless, rolling back and forth in the bed and saying things that were unrelated to what was going on. Patient would not answer questions, she would just keep talking incoherently. Patient did not express any complaints or pain anywhere. She was alert and oriented 1 with GCS of 12. Patient was confused, not able to follow directions or answer questions. Patient has dry mucous membranes, stagnant breath and the skin tenting present. Her blood glucose was 166. Blood pressure 188/86, pulse rate 80, respiration 20, saturation 94%. EKG shows sinus rhythm. Vital signs arrival blood pressure 196/104, pulse rate 79 temperature 97.8. Patient's blood test shows sodium 120 potassium 3.4, normal renal functions, AST mildly elevated 44, ALT 23. UA negative. Lactate normal 1.4. CT head revealed no acute hemorrhage or mass effect. There is a small area of low attenuation superior right parietal white matter more pronounced on today's exam related to prior. His weight represent an area of subacute ischemia. Correlate clinically. On my review, it appears more like chronic ischemia from small vessel disease. This area was present on computed tomography scan from 10/01/2021 as well. Patient has history of a stroke in March 2021 while she was living in [place]. At that time patient suffered from a fall, hit her head, and was weak on the right side. Patient's daughter states that her right arm weakness resolved, but patient has residual weakness of the right leg. She does not pick her right leg as high as the left and she drags it. Patient's son mentions that patient always used to walk with foot externally rotated, but this got worse after the stroke. Patient does have dementia at least moderate degree. Some day she is more clear, other days she is not well aware and almost like turnoff was switched. Patient was tried on some medication for dementia in March 2022, but her son stopped it. Home medications include B12 1000 g orally daily, Eliquis 5 mg twice a day, metoprolol, Lipitor 40 mg, magnesium, metformin, Paxil 10 mg, Robaxin 500 mg 4 times a day when necessary, Zestoretic and Bactrim. No previous history of seizures. Patient has never smoked, does not drink alcohol. Patient has hypertension and diabetes. Review of Systems Review of systems as per report from patient's family members. Constitutional: Reports weakness, Denies chills, Denies fever (Hot and cold) Eyes: denies blurred vision, denies diplopia, denies pain Ears: bilateral: decreased hearing, deny: earache Ears, nose, mouth and throat: Denies headache, Denies sore throat Cardiovascular: Denies chest pain, Denies shortness of breath Respiratory: Reports cough, Reports cough with sputum, Denies excessive sputum Gastrointestinal: Reports diarrhea, Reports nausea (Since Robaxin), Denies abdominal pain, Denies vomiting Genitourinary: Denies dysuria, Denies hematuria Musculoskeletal: Denies low back pain, Denies myalgias, Denies neck pain Integumentary: Denies pruritus, Denies rash Neurological: Reports as per HPI Psychiatric: Reports depression, Denies anxiety Endocrine: Reports fatigue, Denies weight change Hematologic/Lymphatic: Reports easy bleeding, Reports easy bruising Past Medical History Past Medical History: CVA/TIA, Diabetes Mellitus, Hypertension, Thyroid Disorder History of Any Multi-Drug Resistant Organisms: None Reported Past Surgical History: No Surgical Hx Reported Past Anesthesia/Blood Transfusion Reactions: No Reported Reaction Past Psychological History: No Psychological Hx Reported Smoking Status: Never smoker Past Alcohol Use History: None Reported Past Drug Use History: None Reported Medications and Allergies Home Medications Medication Instructions Recorded Confirmed Type Apixaban [Eliquis] 5 mg PO AC-BID 04/24/22 03/15/23 History Cyanocobalamin (Vitamin B-12) 1,000 mcg PO DAILY@1200 04/24/22 03/15/23 History [Vitamin B-12] Mirabegron [Myrbetriq] 50 mg PO DAILY@1200 04/24/22 03/15/23 History Atorvastatin [Lipitor] 40 mg PO HS 10/13/22 03/15/23 History Metoprolol Tartrate [Lopressor] 25 mg PO Q12H 10/13/22 03/15/23 History Acetaminophen Tab [Tylenol] 650 mg PO Q6HR PRN tab 01/26/23 03/15/23 Rx Magnesium Oxide [Mag-Ox] 400 mg PO BID #20 tab 01/26/23 03/15/23 Rx PARoxetine [Paxil] 10 mg PO DAILY #30 tab 01/26/23 03/15/23 Rx metFORMIN HCL 1,000 mg PO BID #60 tablet 01/26/23 03/15/23 Rx methocarbamoL [Robaxin] 500 mg PO QID PRN #60 tab 03/07/23 03/15/23 Rx Lisinopril-Hctz 20-12.5 mg 1 tab PO BID 03/15/23 03/15/23 History [Zestoretic 20-12.5] Sulfamethox-Tmp 800-160Mg [Bactrim 1 tab PO BID 03/15/23 03/15/23 History DS 800-160 mg] Allergies Allergy/AdvReac Type Severity Reaction Status Date / Time No Known Allergies Allergy Verified 03/15/23 17:17 Physical Examination - Vital Signs Vital Signs: Vital Signs Temp Pulse Pulse Resp BP BP Pulse Ox 03/16/23 06:25 97.7 F 76 16 134/62 92 L 03/16/23 01:39 97.4 F L 74 16 143/61 94 L 03/15/23 23:30 74 03/15/23 21:22 98.5 F 74 16 127/56 95 03/15/23 20:02 86 18 145/55 93 L 03/15/23 17:30 100 18 142/93 03/15/23 16:00 91 19 171/75 03/15/23 15:30 80 18 175/75 03/15/23 15:00 80 16 151/56 03/15/23 14:30 74 18 156/69 03/15/23 13:29 97.8 F 79 20 196/104 97 Intake and Output 03/15/23 03/16/23 03/16/23 22:59 06:59 14:59 Other: Voiding Method Diaper # Voids 1 Weight 63.503 kg Patient is an elderly female, who appears in no acute distress. Patient keeps on rolling onto the left side with her legs flexed. With difficulty, patient was placed on her back and legs extended but then she'll rolls back to the left again. Patient is awake, but very slow mentation, prolonged latency time to answer questions, appears encephalopathic. She has difficulty with understanding the tasks. Patient is oriented 1. Could not tell the current month or the year. She says it is November 1967. She does know that she is in [place] in [place] and believes that she is in her home. She could not tell name of the current president although she knows very well about it at baseline. Speech and language functions are normal. Patient can name and repeat very well. She was able to name glasses, knuckles but for earlobe, patient said "eardrum". Attention, concentration is significantly decreased and fund of knowledge is very limited partly from dementia and also related to encephalopathy. On cranial nerve examination, pupils are equal, round and reacting to light, visual nuñez are full on confrontation check very grossly on the right and left. Patient not able to cooperate with checking of all 4 quadrants. Patient would not cooperate with checking of the neglect. Extraocular muscles are intact with no nystagmus. Face is symmetric, tongue protrudes to the midline. Palatal elevation and sensation normal, hearing is significantly decreased and shoulder shrug normal, facial sensation normal. On muscle strength testing, there is no pronator drift. Patient did not cooperate well with the muscle strength testing. Her biceps, stack attendant and triceps appears normal. She does move her legs spontaneously, flexes her legs in the hips and knees equally. Her ankle dorsiflexion appears normal. In general, there is no obvious focality with muscle strength testing. She did not cooperate well, did not give full effort. But otherwise appeared relatively nonfocal. Deep tendon reflexes are symmetric 2+ at the biceps, 2+ brachioradialis, 0 at the knees and ankles and plantars are possibly upgoing versus withdrawal. Sensory to touch is equal. Patient did not cooperate with checking for the neglect. Patient has very impaired attention span. Cerebellar function showed some ataxia distally for [id number] on the right, and patient would not understand or comprehend when her left arm was tested. Patient did not cooperate for [id number]-[id number] testing on either side. Tone and bulk of muscles normal. Gait deferred.. On general examination, there is no carotid bruit or murmur, S1-S2 audible. Chest is clear on consultation. Abdomen is soft nontender. No organomegaly, bowel sounds present. Peripheral pulses are present. No edema. Results - Laboratory Findings CBC and BMP: 03/15/23 15:22 03/16/23 10:42 Abnormal Lab Findings: Abnormal Labs 03/15/23 03/15/23 03/15/23 13:41 13:41 15:22 Hgb 9.3 L Hct 29.7 L MCV 61.7 L MCH 19.4 L RDW 19.3 H Plt Count 460 H Neutrophils # 7.9 H Sodium 120 L Potassium 3.4 L Chloride 84 L Creatinine 0.39 L Glucose 137 H POC Glucose (mg/dL) Magnesium 1.1 L AST 44 H Urine Protein Trace H Urine Ketones 3+ H 03/16/23 07:58 Hgb Hct MCV MCH RDW Plt Count Neutrophils # Sodium Potassium Chloride Creatinine Glucose POC Glucose (mg/dL) 133 H Magnesium AST Urine Protein Urine Ketones Assessment and Plan Assessment: * Altered mental status, likely due to metabolic encephalopathy. Reasons multifactorial as mentioned below. * Hyponatremia with sodium 120 * History of CVA, with residual right leg weakness * Dementia, at least moderate degree * Diabetes * Hypertension * Hypothyroidism * History of B12 deficiency Plan: * Patient has developed acute hyponatremia with sodium 120. We will repeat Chem-7. May need nephrology consultation. * Check EEG for epileptiform activity, versus encephalopathy * Carotid Doppler revealed no definite hemodynamically significant stenosis although the examination is technically challenging because of patient noncooperation. Antegrade flow in both vertebral arteries. * CT head was reviewed. I do not believe any evidence of new stroke. The area of low attenuation superior right parietal lobe was not well seen in the last CT from 03/04/2023, but was quite present in the prior CT from 05/03/2022. * Patient is already on Eliquis 5 mg twice a day, therefore CVA appears less likely, unless patient may have missed or not taken the dose regularly. Aspirin 81 mg daily has been added in this admission. * Discontinue Robaxin, as patient's mentation has been worse since this medication was started.. * Patient currently on vitamin B12 1000 g orally daily, which will be continued. * If no obvious answers identified with above testing, then may consider MRI of the brain to rule out CVA. * Discussed with patient's family in detail. Thank you for the consult. Addendum 4:30 PM: EEG is abnormal due to presence of mixed slow and fast frequency activity suggestive of [id number] encephalopathy or medication effect. No epileptiform activity was seen. Repeat sodium level still very low 121. Recommend nephrology consultation. Patient's family mentions that patient has much improved mentally. She still confused, but better than this morning. We will continue to observe. Time with Patient: Greater than 30
--- NOTE | 2023-03-16 13:43 | EEG ---
DATE OF SERVICE: 03/16/2023 ELECTROENCEPHALOGRAM REPORT PREAMBLE: This is an 87-year-old female with altered mental status. EEG FINDINGS: This is a 21-channel digital EEG recorded with video component, utilizing 10/20 international system with referential and bipolar montages. Background consists of a fairly well-developed, but poorly regulated, mixed frequencies of low amplitude. The delta, with superimposed fast frequency beta activity seen in bihemispheric region. Background does not seem to be clearly reactive to eye opening and closing. A lot of myogenic activity seen in the frontal head region bilaterally. Slightly better well- formed background was seen in the later part of the study. Hyperventilation and photic stimulation were not performed. Different stages of sleep were not seen. No focal or generalized epileptiform activity was seen. IMPRESSION: This is an abnormal EEG due to presence of mixed slow and fast frequency activity suggestive of [id number] encephalopathy or medication effect. No epileptiform activity was seen. MMJOVANAL / IJN: [id number] / MTDD
--- NOTE | 2023-03-16 16:32 | P.PN ---
Progress Note - Text Progress Note Date: 03/16/23 Chief Complaint: Increasing agitation 87-year-old lady with past medical history significant for diabetes, hypertension, hypothyroid poor historian secondary to cognitive impairment presented to the emergency department brought in by family secondary to worsening confusion. Patient was recently discharged from the hospital. Admitted for increasing medical debility. Was doing fairly reasonably okay when discharged from here. Patient now presents with increasing confusion. Daughter and 2 other sons are present in the room. Last Tuesday patient not really able to eat. Having some trouble swallowing. Otherwise normally able to eat. Patient has some weak ness on the right side from a prior stroke. Some weakness reported on the left side. Patient is finding it difficult to find words. Patient is given Robaxin before I came in since patient very sleepy right now. March 16: Patient more awake today. Answering occasional question. In bed. Moving all 4 limbs. Seen by neurology. Computed tomography scan report reviewed by neurology. Stroke felt to be unlikely. Patient most likely having delirium/encephalopathy. EEG negative for epileptiform activity. Serum osmolality added. Nephrology consulted. Spoke to patient's son and daughter. Will DC hydrochlorothiazide. Continue saline. Decreased oral intake. Active Medications Acetaminophen (Acetaminophen Tab 325 Mg Tab) 650 mg PO Q6HR PRN PRN Reason: Mild Pain or Fever > 100.5 Apixaban (Apixaban 5 Mg Tab) 5 mg PO AC-BID [facility]; Protocol Last Admin: 03/16/23 10:04 Dose: 5 mg Aspirin (Aspirin 81 Mg) 81 mg PO DAILY WILDA Last Admin: 03/16/23 10:04 Dose: 81 mg Dextrose/Water (Dextrose 50% Syringe 50 Ml) 25 ml IVP PER PROTOCOL PRN; Protocol PRN Reason: Hypoglycemia Dextrose/Water (Dextrose 50% Syringe 50 Ml) 50 ml IVP PER PROTOCOL PRN; Protocol PRN Reason: Hypoglycemia Sodium Chloride (Saline 0.9%) 1,000 mls @ 100 mls/hr IV .Q10H [facility] Last Admin: 03/16/23 05:17 Dose: 100 mls/hr Insulin Aspart (Insulin Aspart (Novolog) 100 Unit/Ml Vial) 0 unit SQ AC-TID [facility]; Protocol Last Admin: 03/16/23 12:32 Dose: Not Given Lisinopril (Lisinopril 20 Mg Tab) 20 mg PO BID [facility] Metoprolol Tartrate (Metoprolol Tartrate 25 Mg Tab) 25 mg PO Q12H [facility] Last Admin: 03/16/23 10:04 Dose: 25 mg Naloxone HCl (Naloxone 0.4 Mg/Ml 1 Ml Vial) 0.2 mg IV Q2M PRN PRN Reason: Opioid Reversal Patient's Own ( Mirabegron Myrbetriq 50 Mg Tab .Er.24h) 50 mg PO DAILY@1200 [facility] Last Admin: 03/16/23 10:09 Dose: Not Given Paroxetine HCl (Paroxetine 10 Mg Tab) 10 mg PO DAILY [facility] Last Admin: 03/16/23 12:32 Dose: 10 mg Social history: Nonsmoker. No alcohol. Physical examination: VITAL SIGNS: 97.8, 62, 18, 1 59 x 6 6, 98% room air GENERAL: Awake in bed, comfortable EYES: Pupils equal. Conjunctiva normal. HEENT: External appearance of nose and ears normal, oral cavity grossly normal. NECK: JVD not raised; masses not palpable. HEART: First and second heart sounds are normal; no edema. LUNGS: Respiratory rate normal; clear to auscultation. ABDOMEN: Soft, nontender, liver spleen not palpable, no masses palpable. PSYCH: Answering occasional question.. MUSCULOSKELETAL:No Clubbing/cyanosis;muscles-grossly intact. OA NEUROLOGICAL: No facial asymmetry. Some weakness on the right side. Moving all limbs. INVESTIGATIONS, reviewed in the clinical context: Carotid Doppler: No significant stenosis Computed tomography scan brain: Reviewed by neurology. Not felt to be stroke. EEG: Evidence of encephalopathy. No epileptiform activity. March 16: Sodium 121 potassium 3.5 BUN 6 creatinine 0.41 03/15/2023: White count 9.9 hemoglobin 9.3 platelets 460 sodium 120 potassium 3.4 BUN 19 creatinine 0.39 UA: Ketones 3+ Assessment and plan: -Metabolic encephalopathy with delirium. Multifactorial. Possible contribution from medications/low-sodium.: Slow improvement -Hyponatremia, likely hypovolemic. Patient has not been eating drinking for last few days.: Slow to respond Serum osmolality ordered. Normal saline. Consult nephrology. Stop hydrochlorothiazide -chronic medical debility -Severe cognitive impairment. late onset Alzheimer's dementia TSH normal -Hyperlipidemia Lipitor 40 mg daily at bedtime -Likely Ruiz's cyst right popliteal fossa -Primary osteoarthritis multiple joints Tylenol when necessary - B-12 vitamin deficiency Supplement -Essential hypertension Lopressor, lisinopril 20 mg twice a day. -Diabetes mellitus type 2 on oral hypoglycemic: Uncontrolled with hyperglycemia Metformin hold. Follow Accu-Cheks with sliding scale -Chronic urinary incontinence myrbetriq -Anxiety otherwise specified: Paxil 10 mg day. -Full code Discussed with patient's son and daughter. Nephrology consulted. Continue saline. Stop medical thiazide. Activity as tolerated.
[2023-03-16 17:11] LABS: Glucose,Whole Blood 123 mg/dL (70-110)
[2023-03-16 20:29] LABS: Glucose,Whole Blood 176 mg/dL (70-110)
[2023-03-16] MEDS: lisinopriL 20 MG TAB PO SCH (20:42)
[2023-03-17 06:41] LABS: African American GFR (CKD) >90 (>60 ml/min/1.73 sqM); Anion Gap 10 mmol/L; Blood Urea Nitrogen 5 mg/dL (7-17); Calcium 8.6 mg/dL (8.4-10.2); Carbon Dioxide 24 mmol/L (22-30); Chloride 91 mmol/L (98-107); Glucose 114 mg/dL (74-99); Magnesium 1.4 mg/dL (1.6-2.3); Non-African American GFR(CKD) >90 (>60 ml/min/1.73 sqM); Potassium 3.5 mmol/L (3.5-5.1); Sodium 125 mmol/L (137-145)
[2023-03-17 07:19] LABS: Glucose,Whole Blood 134 mg/dL (70-110)
[2023-03-17] MEDS: INSULIN ASPART (NovoLOG) 100 UNIT/ML VIAL SQ SCH ×3 (07:22→17:55)
[2023-03-17] MEDS: lisinopriL 20 MG TAB PO SCH ×2 (09:16→20:22)
[2023-03-17] MEDS: METOPROLOL TARTRATE 25 MG TAB PO SCH (09:16)
[2023-03-17] MEDS: APIXABAN 5 MG TAB PO SCH ×2 (09:16→17:55)
[2023-03-17] MEDS: ASPIRIN 81 MG PO SCH (09:16)
[2023-03-17] MEDS: PARoxetine 10 MG TAB PO SCH (09:16)
[2023-03-17] MEDS: SODIUM CHLORIDE 0.9% 1,000 ML IV SCH ×2 (09:17→20:22)
[2023-03-17] MEDS: MAGNESIUM OXIDE 400 MG TAB PO SCH (11:21)
[2023-03-17 11:51] LABS: Glucose,Whole Blood 228 mg/dL (70-110)
[2023-03-17] MEDS ORDERED: POTASSIUM CHLORIDE ER 20 MEQ TAB.ER PO STA (12:05)
--- NOTE | 2023-03-17 12:09 | P.NPCON ---
History of Present Illness - Reason for Consult hyponatremia - History of Present Illness Reason for consultation: Hyponatremia History of present illness: Patient is a 87-year-old female seen in consultation for hyponatremia. Sodium level on admission on 03/15/2023 was 120 and patient has been maintained on normal saline. Sodium level has been slowly improving each day and is up to 125 this morning. Patient is a poor historian. Daughter is present at bedside who provides the history. According to daughter patient felt weak and could not get up from her bed on Tuesday. Her oral intake has been poor since then. She does drink about 70-80 ounces of fluids daily. She has been nauseous but no v omiting. She's also been having loose bowel movements. Denies history of malignancy. I do see thiazide diuretic and home medication list which is currently held. She has been voiding. No gross hematuria. No use of NSAIDs. GFR at baseline. Denies history of malignancy except for skin cancer. Vital signs are stable. General: NAD. HEENT: Head exam is unremarkable. LUNGS: No audible wheezes. HEART: Rate and Rhythm are regular. ABDOMEN: Nontender. EXTREMITITES: No edema. Past Medical History Past Medical History: CVA/TIA, Diabetes Mellitus, Hypertension, Thyroid Disorder History of Any Multi-Drug Resistant Organisms: None Reported Past Surgical History: No Surgical Hx Reported Past Anesthesia/Blood Transfusion Reactions: No Reported Reaction Past Psychological History: No Psychological Hx Reported Smoking Status: Never smoker Past Alcohol Use History: None Reported Past Drug Use History: None Reported Medications and Allergies Home Medications Medication Instructions Recorded Confirmed Type Apixaban [Eliquis] 5 mg PO AC-BID 04/24/22 03/15/23 History Cyanocobalamin (Vitamin B-12) 1,000 mcg PO DAILY@1200 04/24/22 03/15/23 History [Vitamin B-12] Mirabegron [Myrbetriq] 50 mg PO DAILY@1200 04/24/22 03/15/23 History Atorvastatin [Lipitor] 40 mg PO HS 10/13/22 03/15/23 History Metoprolol Tartrate [Lopressor] 25 mg PO Q12H 10/13/22 03/15/23 History Acetaminophen Tab [Tylenol] 650 mg PO Q6HR PRN tab 01/26/23 03/15/23 Rx Magnesium Oxide [Mag-Ox] 400 mg PO BID #20 tab 01/26/23 03/15/23 Rx PARoxetine [Paxil] 10 mg PO DAILY #30 tab 01/26/23 03/15/23 Rx metFORMIN HCL 1,000 mg PO BID #60 tablet 01/26/23 03/15/23 Rx methocarbamoL [Robaxin] 500 mg PO QID PRN #60 tab 03/07/23 03/15/23 Rx Lisinopril-Hctz 20-12.5 mg 1 tab PO BID 03/15/23 03/15/23 History [Zestoretic 20-12.5] Sulfamethox-Tmp 800-160Mg [Bactrim 1 tab PO BID 03/15/23 03/15/23 History DS 800-160 mg] Allergies Allergy/AdvReac Type Severity Reaction Status Date / Time No Known Allergies Allergy Verified 03/15/23 17:17 Physical Exam Vitals: Vital Signs Temp Pulse Resp BP BP Pulse Ox 03/17/23 07:19 97.8 F 62 16 172/83 94 L 03/17/23 02:27 97.6 F 61 18 181/71 94 L 03/16/23 19:55 16 03/16/23 19:29 97.5 F L 73 16 113/66 93 L 03/16/23 12:13 97.8 F 62 18 159/66 98 Intake and Output 03/16/23 03/17/23 03/17/23 22:59 06:59 14:59 Intake Total 1320 1400 Output Total 300 Balance 1020 1400 Intake: Intake, IV Titration 1200 900 Amount Sodium Chloride 0.9% 1, 1200 900 000 ml @ 75 mls/hr IV . [id number] [facility] Rx#:[id number] Oral 120 500 Output: Urine 300 Other: Voiding Method Diaper Diaper Results - Lab Results Most recent lab results Calcium 8.6 mg/dL (8.4-10.2) 03/17/23 05:33 Magnesium 1.4 mg/dL (1.6-2.3) L 03/17/23 05:33 03/15/23 15:22 03/17/23 05:33 Assessment and Plan Plan: Assessment: 1. Hypovolemic hyponatremia with component of poor solute intake improving with normal saline. Thiazide diuretic held. Sodium level CXXV this morning. TSH normal. 2. Anemia. Rule out iron deficiency. 3. Benign hypertension. 4. Hypomagnesemia from poor intake and diuretic use. 5. Hypokalemia from poor intake and diuretic use. Plan: Maintain normal saline. Encourage oral intake. 1200 mL fluid restriction. Replace potassium and magnesium. Continue hold thiazide diuretics. Follow-up urine osmolality and urine sodium level. Follow-up PTH related peptide. Thank you for the consultation. I will continue to follow the patient with you during her hospital stay.
[2023-03-17] MEDS: PATIENT'S OWN (Mirabegron [Myrbetriq] 50 MG Tab.Er.24h) PO SCH (12:25)
[2023-03-17] MEDS: MAGNESIUM SULFATE-D5W PMX 1 GM in DEXTROSE/WATER 1 100ML.BAG IVPB SCH ×2 (13:18→14:50)
--- NOTE | 2023-03-17 15:09 | P.PN ---
Subjective Progress Note Date: 03/17/23 Patient was seen for a follow-up. Patient's daughter was present today. She believes that patient is better, little more alert. She is still seeing things, reaching for things that are not there. She ate her breakfast and lunch. Patient's daughter states that she was getting her Eliquis 5 mg twice a day regularly until on Tuesday, 2 days ago (on the day of admission)-they could not get her out of bed, she could not eat or drink or even open her eyes. She was brought to the hospital. Patient did receive Eliquis on Tuesday night, therefore she only missed the dose of Tuesday that she already was symptomatic. Patient also has history of sciatica, cannot lay flat for MRI. Objective - Vital Signs Vital signs: Vital Signs Temp 97.8 F 03/17/23 12:35 Pulse 66 03/17/23 12:35 Resp 16 03/17/23 12:35 BP 150/63 03/17/23 12:35 Pulse Ox 99 03/17/23 12:35 FiO2 Intake & Output 03/16/23 03/17/23 03/17/23 18:59 06:59 18:59 Intake Total 1320 1400 120 Output Total 300 Balance 1020 1400 120 Intake: Intake, IV Titration 1200 900 Amount Sodium Chloride 0.9% 1, 1200 900 000 ml @ 75 mls/hr IV . [id number] [facility] Rx#:[id number] Oral 120 500 120 Output: Urine 300 Other: Voiding Method Diaper Diaper Diaper # Bowel Movements 1 - Exam Yesterday examination was very limited because of her mentation. Today patient was much more cooperative and better examination performed. Patient is an elderly female, sitting in the recliner. Patient is alert awake, very slow mentation. She is extremely prolonged latency time to answer questions. She could not tell the name of the building she is in. She knows that she is in [facility]. She believes it is November and the year is 1960. She states that she does not like the current president, but could not name the president. Even when given multiple choices including Mr. Reynoso, she could not recognize the name. Speech and language functions are normal. Patient can name and repeat very well. She said "eardrum" instead of earlobe, and that is what she said yesterday as well. No obviousaphasia or dysarthria. Attention, concentration is severely impaired and fund of knowledge is limited. On cranial nerve examination, pupils are equal, round and reacting to light, visual nuñez are full on confrontation, with no neglect on double simultaneous stimulation. Extraocular muscles are intact with no nystagmus. Patient has mild left facial asymmetry. Her tongue protrudes to the midline. Palatal royal vation and sensation normal, hearing is moderately to severely decreased and shoulder shrug normal, facial sensation normal. On muscle strength testing, there is no pronator drift and the strength is normal in arms distally and proximally. In the lower limbs, (right/left) her ankle dorsiflexion is 5/4-, hip flexion 4/1-2. Sensory to touch is equal in the arms with no neglect on double simultaneous stimulation. In the lower limbs, she would often neglect the left side but was giving very inconsistent responses. Cerebellar function showed no ataxia for [id number] testing. Tone and bulk of muscles normal. Gait deferred.. On general examination, there is no carotid bruit or murmur, S1-S2 audible. Chest is clear on consultation. Abdomen is soft nontender. No organomegaly, bowel sounds present. Peripheral pulses are present. No edema. - Labs CBC & Chem 7: 03/15/23 15:22 03/17/23 05:33 Labs: Abnormal Lab Results - Last 24 Hours (Table) 03/16/23 03/16/23 03/16/23 Range/Units 10:42 17:10 18:40 Sodium 123 L (137-145) mmol/L Chloride (98-107) mmol/L BUN (7-17) mg/dL Creatinine (0.52-1.04) mg/dL Glucose (74-99) mg/dL POC Glucose (mg/dL) 123 H (70-110) mg/dL Osmolality 259 L (280-301) mosm/kg Magnesium (1.6-2.3) mg/dL 03/16/23 03/17/23 03/17/23 Range/Units 20:28 05:33 07:17 Sodium 125 L (137-145) mmol/L Chloride 91 L (98-107) mmol/L BUN 5 L (7-17) mg/dL Creatinine 0.38 L (0.52-1.04) mg/dL Glucose 114 H (74-99) mg/dL POC Glucose (mg/dL) 176 H 134 H (70-110) mg/dL Osmolality 260 L (280-301) mosm/kg Magnesium 1.4 L (1.6-2.3) mg/dL 03/17/23 Range/Units 11:49 Sodium (137-145) mmol/L Chloride (98-107) mmol/L BUN (7-17) mg/dL Creatinine (0.52-1.04) mg/dL Glucose (74-99) mg/dL POC Glucose (mg/dL) 228 H (70-110) mg/dL Osmolality (280-301) mosm/kg Magnesium (1.6-2.3) mg/dL Assessment and Plan Assessment: * Altered mental status, likely due to metabolic encephalopathy. Reasons multifactorial as mentioned below. * Hyponatremia with sodium 120 * Probable acute to subacute CVA, with left leg weakness. Patient has history of CVA with residual right leg weakness (as per patient's daughter report). The left leg weakness apparently is new. * Dementia, at least moderate degree * Diabetes * Hypertension * Hypothyroidism * History of B12 deficiency Plan: * Patient was more cooperative with examination today. It appears patient has definite left leg weakness as compared to the right. Per daughter's report, patient has previous CVA, but has residual weakness in the "right leg". Therefore the left leg weakness is new, probably due to subacute stroke. * I discussed with patient's daughter about MRI of the brain. But patient has sciatica, cannot lay flat for half an hour. * Check 2-D echo to evaluate for embolic source. * Hemoglobin A1c 7.1. Recommend optimize control of diabetes to target A1c < 7.0 * Lipid panel with cholesterol 110, LDL 35, HDL 55, triglycerides 91. Continue Lipitor 40 mg daily (home medication) * Carotid Doppler revealed no definite hemodynamically significant stenosis although the examination is technically challenging because of patient noncooperation. Antegrade flow in both vertebral arteries. * CT head was reviewed. I do not believe any evidence of new stroke. The area of low attenuation superior right parietal lobe was not well seen in the last CT from 03/04/2023, but was quite present in the prior CT from 05/03/2022, although in the current study appears may be slightly larger in size. * EEG is abnormal due to presence of mixed slow and fast frequency activity suggestive of [id number] encephalopathy or medication effect. No epileptiform activity was seen. * Repeat sodium level today is much improved 125. Appreciate nephrology input. * Patient is already on Eliquis 5 mg twice a day. She has not missed any doses of Eliquis, therefore cause of stroke is uncertain. Aspirin 81 mg daily has been added in this admission. Will discuss with primary physician regarding a nticoagulant does/antiplatelet. Her renal functions are completely normal. * Start Pepcid 20 mg twice a day. * Discontinue Robaxin, as patient's mentation has been worse since this medication was started.. * Patient currently on vitamin B12 1000 g orally daily, which will be continued. * Discussed with patient's family and primary physician in detail. Time with Patient: Greater than 30
[2023-03-17 17:17] LABS: Glucose,Whole Blood 214 mg/dL (70-110)
--- NOTE | 2023-03-17 19:46 | P.PN ---
Progress Note - Text Progress Note Date: 03/17/23 Chief Complaint: Increasing agitation 87-year-old lady with past medical history significant for diabetes, hypertension, hypothyroid poor historian secondary to cognitive impairment presented to the emergency department brought in by family secondary to worsening confusion. Patient was recently discharged from the hospital. Admitted for increasing medical debility. Was doing fairly reasonably okay when discharged from here. Patient now presents with increasing confusion. Daughter and 2 other sons are present in the room. Last Tuesday patient not really able to eat. Having some trouble swallowing. Otherwise normally able to eat. Patient has some weak ness on the right side from a prior stroke. Some weakness reported on the left side. Patient is finding it difficult to find words. Patient is given Robaxin before I came in since patient very sleepy right now. March 16: Patient more awake today. Answering occasional question. In bed. Moving all 4 limbs. Seen by neurology. Computed tomography scan report reviewed by neurology. Stroke felt to be unlikely. Patient most likely having delirium/encephalopathy. EEG negative for epileptiform activity. Serum osmolality added. Nephrology consulted. Spoke to patient's son and daughter. Will DC hydrochlorothiazide. Continue saline. Decreased oral intake. March 17: Some weakness in the left leg. He wanted to by Dr. Rangel from neurology. Feels this is a stroke. Because of patient's dementia MRI cannot be done. 2-D echo will be done. Patient to continue with aspirin eliquis. Seen by urology. Adequate intake of breakfast and lunch. Active Medications Acetaminophen (Acetaminophen Tab 325 Mg Tab) 650 mg PO Q6HR PRN PRN Reason: Mild Pain or Fever > 100.5 Apixaban (Apixaban 5 Mg Tab) 5 mg PO AC-BID [facility]; Protocol Last Admin: 03/17/23 17:55 Dose: 5 mg Aspirin (Aspirin 81 Mg) 81 mg PO DAILY [facility] Last Admin: 03/17/23 09:16 Dose: 81 mg Atorvastatin Calcium (Atorvastatin 40 Mg Tab) 40 mg PO HS [facility] Dextrose/Water (Dextrose 50% Syringe 50 Ml) 25 ml IVP PER PROTOCOL PRN; Protocol PRN Reason: Hypoglycemia Dextrose/Water (Dextrose 50% Syringe 50 Ml) 50 ml IVP PER PROTOCOL PRN; Protocol PRN Reason: Hypoglycemia Diclofenac Sodium (Diclofenac Sodium Gel 100 Gm Tube) 4 gm TOPICAL QID PRN; Protocol PRN Reason: Pain Famotidine (Famotidine 20 Mg Tab) 20 mg PO BID [facility] Sodium Chloride (Saline 0.9%) 1,000 mls @ 75 mls/hr IV .[id number] [facility] Last Admin: 03/17/23 09:17 Dose: Not Given Insulin Aspart (Insulin Aspart (Novolog) 100 Unit/Ml Vial) 0 unit SQ AC-TID [facility]; Protocol Last Admin: 03/17/23 17:55 Dose: 2 unit Lisinopril (Lisinopril 20 Mg Tab) 20 mg PO BID [facility] Last Admin: 03/17/23 09:16 Dose: 20 mg Magnesium Oxide (Magnesium Oxide 400 Mg Tab) 400 mg PO DAILY [facility] Last Admin: 03/17/23 11:21 Dose: 400 mg Metoprolol Tartrate (Metoprolol Tartrate 25 Mg Tab) 25 mg PO Q12H [facility] Last Admin: 03/17/23 09:16 Dose: 25 mg Naloxone HCl (Naloxone 0.4 Mg/Ml 1 Ml Vial) 0.2 mg IV Q2M PRN PRN Reason: Opioid Reversal Patient's Own ( Mirabegron [ Myrbetriq] 50 Mg Tab .Er.24h) 50 mg PO DAILY@1200 [facility] Last Admin: 03/17/23 12:25 Dose: Not Given Paroxetine HCl (Paroxetine 10 Mg Tab) 10 mg PO DAILY [facility] Last Admin: 03/17/23 09:16 Dose: 10 mg Social history: Nonsmoker. No alcohol. Physical examination: VITAL SIGNS: 97.8, 66, 16, 150/63, 99% room air GENERAL: Sitting up in a chair, but more awake today. EYES: Pupils equal. Conjunctiva normal. HEENT: External appearance of nose and ears normal, oral cavity grossly normal. NECK: JVD not raised; masses not palpable. HEART: First and second heart sounds are normal; no edema. LUNGS: Respiratory rate normal; clear to auscultation. ABDOMEN: Soft, nontender, liver spleen not palpable, no masses palpable. PSYCH: Answering simple questions MUSCULOSKELETAL:No Clubbing/cyanosis;muscles-grossly intact. OA NEUROLOGICAL: No facial asymmetry. Some weakness on the right side. Weakness of the left leg INVESTIGATIONS, reviewed in the clinical context: March 17: Sodium 125 potassium 3.5 BUN 5 creatinine 0.38. Lesion 1.4 TSH 0.591. Serum osmolality 260 Carotid Doppler: No significant stenosis Computed tomography scan brain: Reviewed by neurology. Not felt to be stroke. EEG: Evidence of encephalopathy. No epileptiform activity. March 16: Sodium 121 potassium 3.5 BUN 6 creatinine 0.41 03/15/2023: White count 9.9 hemoglobin 9.3 platelets 460 sodium 120 potassium 3.4 BUN 19 creatinine 0.39 UA: Ketones 3+ Assessment and plan: -Probably acute stroke causing weakness in the left leg. Aspirin. Eliquis. Because of lying dementia patient cannot have MRI. Will not remains steady. 2-D echo pending. -Metabolic encephalopathy with delirium. Multifactorial. Possible contribution from medications/low-sodium.: Slow improvement -Hyponatremia, hypoosmolar likely hypovolemic. Patient has not been eating drinking for last few days.: Some improvement Normal saline. Nephrology following Hydrochlorothiazide discontinued -chronic medical debility -Severe cognitive impairment. late onset Alzheimer's dementia TSH normal -Hyperlipidemia Lipitor 40 mg daily at bedtime -Likely Ruiz's cyst right popliteal fossa -Primary osteoarthritis multiple joints Tylenol when necessary - B-12 vitamin deficiency Supplement -Essential hypertension Increase Lopressor 50 mg twice a day, lisinopril 20 mg twice a day. -Diabetes mellitus type 2 on oral hypoglycemic: Uncontrolled with hyperglycemia Metformin hold. Follow Accu-Cheks with sliding scale -Chronic urinary incontinence myrbetriq -Anxiety otherwise specified: Paxil 10 mg day. -Full code Increase Lopressor for blood pressure. Fluid restriction. Continue normal saline. 2-D echo ordered.
[2023-03-17 20:20] LABS: % Iron Saturation 2.69 (12.00-45.00); Ferritin 41.5 ng/mL (10.0-291.0)
[2023-03-17] MEDS: ATORVASTATIN 40 MG TAB PO SCH (20:22)
[2023-03-17] MEDS: FAMOTIDINE 20 MG TAB PO SCH (20:22)
[2023-03-17] MEDS: METOPROLOL TARTRATE 50 MG TAB PO SCH (20:22)
[2023-03-17 20:40] LABS: Glucose,Whole Blood 242 mg/dL (70-110)
[2023-03-17] MEDS: DICLOFENAC SODIUM GEL 100 GM TUBE TOPICAL PRN (22:27)
[2023-03-18] MEDS: SODIUM CHLORIDE 0.9% 1,000 ML IV SCH ×3 (05:22→18:28)
[2023-03-18 07:01] LABS: African American GFR (CKD) >90 (>60 ml/min/1.73 sqM); Anion Gap 7 mmol/L; Blood Urea Nitrogen 9 mg/dL (7-17); Calcium 8.4 mg/dL (8.4-10.2); Carbon Dioxide 27 mmol/L (22-30); Chloride 95 mmol/L (98-107); Glucose 159 mg/dL (74-99); Magnesium 1.5 mg/dL (1.6-2.3); Non-African American GFR(CKD) >90 (>60 ml/min/1.73 sqM); Potassium 3.7 mmol/L (3.5-5.1); Sodium 129 mmol/L (137-145)
[2023-03-18 07:11] LABS: Glucose,Whole Blood 175 mg/dL (70-110)
[2023-03-18] MEDS: APIXABAN 5 MG TAB PO SCH ×2 (08:44→17:59)
[2023-03-18] MEDS: INSULIN ASPART (NovoLOG) 100 UNIT/ML VIAL SQ SCH ×3 (08:44→17:59)
[2023-03-18] MEDS: FAMOTIDINE 20 MG TAB PO SCH ×2 (08:44→20:15)
[2023-03-18] MEDS: PARoxetine 10 MG TAB PO SCH (08:44)
[2023-03-18] MEDS: lisinopriL 20 MG TAB PO SCH ×2 (08:44→20:15)
[2023-03-18] MEDS: MAGNESIUM OXIDE 400 MG TAB PO SCH (08:44)
[2023-03-18] MEDS: ASPIRIN 81 MG PO SCH (08:44)
[2023-03-18] MEDS: METOPROLOL TARTRATE 50 MG TAB PO SCH (08:44)
[2023-03-18] MEDS: PATIENT'S OWN (Mirabegron [Myrbetriq] 50 MG Tab.Er.24h) PO SCH (08:52)
[2023-03-18] MEDS: DICLOFENAC SODIUM GEL 100 GM TUBE TOPICAL PRN ×2 (09:19→20:21)
--- NOTE | 2023-03-18 09:20 | CA ---
Transthoracic Echo Report Name: Alondra Arthur Age: 87 Gender: F : 1935 Exam Date: 03/17/2023 17:33 Exam Location: [place] [facility] Ht (in): 65 Wt (lb): 140 Ordering Physician: Yasmin Barrett MD Attending/Referring Phys: [employer] Installer Roxana Strickland RDCS Procedure CPT: Indications: CVA Cardiac Hx: Technical Quality: Good Contrast 1: Total Dose (mL): Contrast 2: Total Dose (mL): MEASUREMENTS (Male / Female) Normal Values 2D ECHO LV Diastolic Diameter PLAX 4.2 cm 4.2 - 5.9 / 3.9 - 5.3 cm LV Systolic Diameter PLAX 2.9 cm IVS Diastolic Thickness 1.3 cm 0.6 - 1.0 / 0.6 - 0.9 cm LVPW Diastolic Thickness 1.4 cm 0.6 - 1.0 / 0.6 - 0.9 cm LV Relative Wall Thickness 0.7 RV Internal Dim ED PLAX 3.5 cm LA Systolic Diameter LX 3.6 cm 3.0 - 4.0 / 2.7 - 3.8 cm LA Volume 71.2 cm??? 18 - 58 / 22 - 52 cm??? LA Volume Index 41.6 cm???/m??? 16 - 28 cm???/m??? M-MODE Aortic Root Diameter MM 3.6 cm MV E Point Septal Separation 0.7 cm AV Cusp Separation MM 2.1 cm DOPPLER AV Peak Velocity 138.2 cm/s AV Peak Gradient 7.6 mmHg MV Area PHT 2.1 cm??? Mitral E Point Velocity 73.9 cm/s Mitral A Point Velocity 118.1 cm/s Mitral E to A Ratio 0.6 MV Deceleration Time 359.7 ms MV E' Velocity 5.1 cm/s Mitral E to MV E' Ratio 14.6 TR Peak Velocity 245.7 cm/s TR Peak Gradient 24.1 mmHg Right Ventricular Systolic Press 28.8 mmHg FINDINGS Left Ventricle Left ventricular ejection fraction is estimated at 55-60 %. Left ventricular cavity size normal. Mild concentric left ventricular hypertrophy. Right Ventricle Mild right ventricular dilatation. Right ventricular systolic pressure within normal limits. Right Atrium Normal right atrial size. Negative agitated saline bubble study for right to left shunt. Left Atrium Moderately increased left atrial volume. Mitral Valve Structurally normal mitral valve. No mitral stenosis, regurgitation or prolapse. Aortic Valve Trileaflet aortic valve. Trace aortic regurgitation. Tricuspid Valve Structurally normal tricuspid valve. Mild tricuspid regurgitation. Pulmonic Valve Structurally normal pulmonic valve. Mild pulmonic regurgitation. Pericardium No pericardial effusion. Aorta Normal size aortic root and proximal ascending aorta. CONCLUSIONS Mild LVH with preserved systolic function Left atrial enlargement Previewed by: Dr. Patrick Romero MD (Electronically Signed) Final Date: 18 March 2023 09:19
--- NOTE | 2023-03-18 10:58 | P.PN ---
Subjective Patient is seen for follow-up for hyponatremia. Currently maintained on normal saline. Serum sodium improved to 129 today. No significant complaints. Objective - Vital Signs Vital signs: Vital Signs Temp 98.3 F 03/18/23 07:16 Pulse 60 03/18/23 07:16 Resp 18 03/18/23 07:16 BP 163/63 03/18/23 07:16 Pulse Ox 97 03/18/23 07:16 FiO2 Intake & Output 03/17/23 03/18/23 03/18/23 18:59 06:59 18:59 Intake Total 1220 1300 Balance 1220 1300 Intake: Intake, IV Titration 1100 900 Amount Magnesium Sulfate-D5w Pmx 200 1 gm In Dextrose/Water 1 100ml.bag @ 100 mls/hr IVPB Q1H [facility] Rx#: [id number] Sodium Chloride 0.9% 1, 900 900 000 ml @ 75 mls/hr IV . [id number] [facility] Rx#:[id number] Oral 120 400 Other: Voiding Method Diaper Diaper # Voids 2 4 - Exam Patient is sleepy but arousable Examination of the heart S1 and S2 Examination of the lungs decreased breath sounds at the bases Abdomen is soft nontender Examination of lower extremities shows no significant edema - Labs CBC & Chem 7: 03/15/23 15:22 03/18/23 06:29 Labs: Abnormal Lab Results - Last 24 Hours (Table) 03/17/23 03/17/23 03/17/23 Range/Units 05:33 11:49 17:16 Sodium (137-145) mmol/L Chloride (98-107) mmol/L Creatinine (0.52-1.04) mg/dL Glucose (74-99) mg/dL POC Glucose (mg/dL) 228 H 214 H (70-110) mg/dL Magnesium (1.6-2.3) mg/dL Iron 11 L (50-170) UG/DL % Saturation 2.69 L (12.00-45.00) 03/17/23 03/18/23 03/18/23 Range/Units 20:38 06:29 07:09 Sodium 129 L (137-145) mmol/L Chloride 95 L (98-107) mmol/L Creatinine 0.36 L (0.52-1.04) mg/dL Glucose 159 H (74-99) mg/dL POC Glucose (mg/dL) 242 H 175 H (70-110) mg/dL Magnesium 1.5 L (1.6-2.3) mg/dL Iron (50-170) UG/DL % Saturation (12.00-45.00) Assessment and Plan Assessment: 1. Hyponatremia, hypovolemic and improving with normal saline. Thiazide diuretics on hold. 2. Benign hypertension 3. Hypomagnesemia associated with diuretic use and decreased oral intake, being replaced 4. Hypokalemia decreased intake and diuretics status post replacement Plan: Continue with normal saline Replace magnesium Repeat labs in a.m.
[2023-03-18 12:07] LABS: Glucose,Whole Blood 149 mg/dL (70-110)
--- NOTE | 2023-03-18 16:49 | P.PN ---
Subjective Progress Note Date: 03/18/23 Patient was seen for a follow-up. Patient's daughter was present today. She believes that patient is better, little more alert. Patient's daughter admits that patient does have moderate dementia, but was able to carry conversation until this possible CVA. Patient's daughter states that she was getting her Eliquis 5 mg twice a day regularly until on Tuesday, 2 days ago (on the day of admission)-they could not get her out of bed, she could not eat or drink or even open her eyes. She was brought to the hospital. Patient did receive Eliquis on Tuesday night in the hospital, therefore she only missed 1 dose, on Tuesday morning, however she was already symptomatic at that time. Patient also has history of sciatica, cannot lay flat for MRI. Objective - Vital Signs Vital signs: Vital Signs Temp 97.6 F 03/18/23 13:19 Pulse 57 L 03/18/23 13:19 Resp 16 03/18/23 13:19 BP 146/70 03/18/23 13:19 Pulse Ox 93 L 03/18/23 13:19 FiO2 Intake & Output 03/17/23 03/18/23 03/18/23 18:59 06:59 18:59 Intake Total 1220 1300 Balance 1220 1300 Intake: Intake, IV Titration 1100 900 Amount Magnesium Sulfate-D5w Pmx 200 1 gm In Dextrose/Water 1 100ml.bag @ 100 mls/hr IVPB Q1H [facility] Rx#: [id number] Sodium Chloride 0.9% 1, 900 900 000 ml @ 75 mls/hr IV . [id number] [facility] Rx#:[id number] Oral 120 400 Other: Voiding Method Diaper Diaper Diaper # Voids 2 4 - Exam Yesterday examination was very limited because of her mentation. Today patient was much more cooperative and better examination performed. Patient is an elderly female, sitting in the recliner. Patient is alert awake, very slow mentation. She is extremely prolonged latency time to answer questions. She could not tell the name of the building she is in. She knows that she is in [facility]. She believes it is November and the year is 1960. She states that she does not like the current president, but could not name the president. Even when given multiple choices including Mr. Reynoso, she could not recognize the name. Speech and language functions are normal. Patient can name and repeat very well. She said "eardrum" instead of earlobe, and that is what she said yesterday as well. No obviousaphasia or dysarthria. Attention, concentration is severely impaired and fund of k nowledge is limited. On cranial nerve examination, pupils are equal, round and reacting to light, visual nuñez are full on confrontation, with no neglect on double simultaneous stimulation. Extraocular muscles are intact with no nystagmus. Patient has mild left facial asymmetry. Her tongue protrudes to the midline. Palatal elevation and sensation normal, hearing is moderately to severely decreased and shoulder shrug normal, facial sensation normal. On muscle strength testing, there is no pronator drift and the strength is normal in arms distally and proximally. In the lower limbs, (right/left) patient able to lift her right leg off the bed and give some resistance at least 4, whereas the left leg she has to lift it manually and the knee flexes partially. The ankle dorsiflexion was 5 on the right, and after numerous attempts, was almost normal 5 on the left as well. Patient has significant difficulty with comprehension and performing tasks. Sensory to touch is equal in the arms with no neglect on double simultaneous stimulation. In the lower limbs, she would often neglect the left side but was giving very inconsistent responses. Cerebellar function showed no ataxia for [id number] testing. Tone and bulk of muscles normal. Gait deferred.. On general examination, there is no carotid bruit or murmur, S1-S2 audible. Chest is clear on consultation. Abdomen is soft nontender. No organomegaly, bowel sounds present. Peripheral pulses are present. No edema. - Labs CBC & Chem 7: 03/15/23 15:22 03/18/23 06:29 Labs: Abnormal Lab Results - Last 24 Hours (Table) 03/17/23 03/17/23 03/17/23 Range/Units 05:33 17:16 20:38 Sodium (137-145) mmol/L Chloride (98-107) mmol/L Creatinine (0.52-1.04) mg/dL Glucose (74-99) mg/dL POC Glucose (mg/dL) 214 H 242 H (70-110) mg/dL Magnesium (1.6-2.3) mg/dL Iron 11 L (50-170) UG/DL % Saturation 2.69 L (12.00-45.00) 03/18/23 03/18/23 03/18/23 Range/Units 06:29 07:09 12:06 Sodium 129 L (137-145) mmol/L Chloride 95 L (98-107) mmol/L Creatinine 0.36 L (0.52-1.04) mg/dL Glucose 159 H (74-99) mg/dL POC Glucose (mg/dL) 175 H 149 H (70-110) mg/dL Magnesium 1.5 L (1.6-2.3) mg/dL Iron (50-170) UG/DL % Saturation (12.00-45.00) Assessment and Plan Assessment: * Altered mental status, likely due to metabolic encephalopathy. Reasons multifactorial as mentioned below. * Hyponatremia with sodium 120 * Probable acute to subacute CVA, with left leg weakness. Patient has history of CVA with residual right leg weakness (as per patient's daughter report). The left leg weakness apparently is new. * Dementia, at least moderate degree * Diabetes * Hypertension * Hypothyroidism * History of B12 deficiency Plan: * Patient has possible CVA, a left leg to be weaker with the CVA. However the examination reveals improved strength today as compared to yesterday. Per daughter's report, patient has previous CVA, but has residual weakness in the "right leg". Therefore the left leg weakness is new, probably due to subacute stroke. * I discussed with patient's daughter about MRI of the brain. But patient has sciatica, cannot lay flat for half an hour. * 2-D echo revealed normal left ventricular cavity size. Mild concentric LVH, EF is 55-60%. Left atrium is moderately increased in volume. No valvulopathy. * Hemoglobin A1c 7.1. Recommend optimize control of diabetes to target A1c < 7.0 * Lipid panel with cholesterol 110, LDL 35, HDL 55, triglycerides 91. Continue Lipitor 40 mg daily (home medication) * Carotid Doppler revealed no definite hemodynamically significant stenosis although the examination is technically challenging because of patient noncooperation. Antegrade flow in both vertebral arteries. * CT head was reviewed. I do not believe any evidence of new stroke. The area of low attenuation superior right parietal lobe was not well seen in the last CT from 03/04/2023, but was quite present in the prior CT from 05/03/2022, although in the current study appears may be slightly larger in size. * EEG is abnormal due to presence of mixed slow and fast frequency activity suggestive of [id number] encephalopathy or medication effect. No epileptiform activity was seen. * Repeat sodium level today is much improved 129. Magnesium is 1.5. Appreciate nephrology input. * Patient is already on Eliquis 5 mg twice a day. She has not missed any doses of Eliquis, therefore cause of stroke is uncertain. Aspirin 81 mg daily has been added in this admission. Will discuss with primary physician regarding anticoagulant does/antiplatelet. Her renal functions are completely normal. * Start Pepcid 20 mg twice a day. * Discontinue Robaxin, as patient's mentation has been worse since this medication was started.. * Patient currently on vitamin B12 1000 g orally daily, which will be continued. * Discussed with patient's family and primary physician in detail. Neurologically clear for discharge.
--- NOTE | 2023-03-18 16:50 | P.PN ---
Progress Note - Text Progress Note Date: 03/18/23 Chief Complaint: Increasing agitation 87-year-old lady with past medical history significant for diabetes, hypertension, hypothyroid poor historian secondary to cognitive impairment presented to the emergency department brought in by family secondary to worsening confusion. Patient was recently discharged from the hospital. Admitted for increasing medical debility. Was doing fairly reasonably okay when discharged from here. Patient now presents with increasing confusion. Daughter and 2 other sons are present in the room. Last Tuesday patient not really able to eat. Having some trouble swallowing. Otherwise normally able to eat. Patient has some weak ness on the right side from a prior stroke. Some weakness reported on the left side. Patient is finding it difficult to find words. Patient is given Robaxin before I came in since patient very sleepy right now. March 16: Patient more awake today. Answering occasional question. In bed. Moving all 4 limbs. Seen by neurology. Computed tomography scan report reviewed by neurology. Stroke felt to be unlikely. Patient most likely having delirium/encephalopathy. EEG negative for epileptiform activity. Serum osmolality added. Nephrology consulted. Spoke to patient's son and daughter. Will DC hydrochlorothiazide. Continue saline. Decreased oral intake. March 17: Some weakness in the left leg. He wanted to by Dr. Rangel from neurology. Feels this is a stroke. Because of patient's dementia MRI cannot be done. 2-D echo will be done. Patient to continue with aspirin eliquis. Seen by urology. Adequate intake of breakfast and lunch. March 17: Up in a recliner. Comfortable. Spoke to case technician. Pending rehab. Spoke to the daughter in the room. Also spoke to patient's son had questions about questionable UTI. UA is negative. Has no urinary symptoms. Oral intake good. Authorization not received. Total time spent today over 50 minutes and 30 minutes of discussion. Active Medications Acetaminophen (Acetaminophen Tab 325 Mg Tab) 650 mg PO Q6HR PRN PRN Reason: Mild Pain or Fever > 100.5 Apixaban (Apixaban 5 Mg Tab) 5 mg PO AC-BID [facility]; Protocol Last Admin: 03/18/23 08:44 Dose: 5 mg Aspirin (Aspirin 81 Mg) 81 mg PO DAILY [facility] Last Admin: 03/18/23 08:44 Dose: 81 mg Atorvastatin Calcium (Atorvastatin 40 Mg Tab) 40 mg PO HS [facility] Last Admin: 03/17/23 20:22 Dose: 40 mg Dextrose/Water (Dextrose 50% Syringe 50 Ml) 25 ml IVP PER PROTOCOL PRN; Protocol PRN Reason: Hypoglycemia Dextrose/Water (Dextrose 50% Syringe 50 Ml) 50 ml IVP PER PROTOCOL PRN; Protocol PRN Reason: Hypoglycemia Diclofenac Sodium (Diclofenac Sodium Gel 100 Gm Tube) 4 gm TOPICAL QID PRN; Protocol PRN Reason: Pain Last Admin: 03/18/23 09:19 Dose: 4 gm Famotidine (Famotidine 20 Mg Tab) 20 mg PO BID [facility] Last Admin: 03/18/23 08:44 Dose: 20 mg Sodium Chloride (Saline 0.9%) 1,000 mls @ 75 mls/hr IV .[id number] [facility] Last Admin: 03/18/23 05:22 Dose: 75 mls/hr Insulin Aspart (Insulin Aspart (Novolog) 100 Unit/Ml Vial) 0 unit SQ AC-TID [facility]; Protocol Last Admin: 03/18/23 12:32 Dose: Not Given Lisinopril (Lisinopril 20 Mg Tab) 20 mg PO BID [facility] Last Admin: 03/18/23 08:44 Dose: 20 mg Magnesium Oxide (Magnesium Oxide 400 Mg Tab) 400 mg PO DAILY [facility] Last Admin: 03/18/23 08:44 Dose: 400 mg Metoprolol Tartrate (Metoprolol Tartrate 50 Mg Tab) 50 mg PO BID [facility] Last Admin: 03/18/23 08:44 Dose: 50 mg Naloxone HCl (Naloxone 0.4 Mg/Ml 1 Ml Vial) 0.2 mg IV Q2M PRN PRN Reason: Opioid Reversal Patient's Own ( Mirabegron [ Myrbetriq] 50 Mg Tab .Er.24h) 50 mg PO DAILY@1200 [facility] Last Admin: 03/18/23 08:52 Dose: Not Given Paroxetine HCl (Paroxetine 10 Mg Tab) 10 mg PO DAILY [facility] Last Admin: 03/18/23 08:44 Dose: 10 mg Social history: Nonsmoker. No alcohol. Physical examination: VITAL SIGNS: 97.6, 57, 16, 146 T 70, 93% room air GENERAL: Sitting up in a chair, comfortable EYES: Pupils equal. Conjunctiva normal. HEENT: External appearance of nose and ears normal, oral cavity grossly normal. NECK: JVD not raised; masses not palpable. HEART: First and second heart sounds are normal; no edema. LUNGS: Respiratory rate normal; clear to auscultation. ABDOMEN: Soft, nontender, liver spleen not palpable, no masses palpable. PSYCH: Answering simple questions MUSCULOSKELETAL:No Clubbing/cyanosis;muscles-grossly intact. OA NEUROLOGICAL: No facial asymmetry. Some weakness on the right side. Weakness of the left leg INVESTIGATIONS, reviewed in the clinical context: 2-D echocardiogram: EF 55-60%. March 17: Sodium 125 potassium 3.5 BUN 5 creatinine 0.38. Lesion 1.4 TSH 0.591. Serum osmolality 260 Carotid Doppler: No significant stenosis Computed tomography scan brain: Reviewed by neurology. Not felt to be stroke. EEG: Evidence of encephalopathy. No epileptiform activity. March 16: Sodium 121 potassium 3.5 BUN 6 creatinine 0.41 03/15/2023: White count 9.9 hemoglobin 9.3 platelets 460 sodium 120 potassium 3.4 BUN 19 creatinine 0.39 UA: Ketones 3+ Assessment and plan: -Probably acute stroke causing weakness in the left leg. Aspirin. Eliquis. Because of lying dementia patient cannot have MRI. Will not remains steady. 2-D echo unremarkable. -Metabolic encephalopathy with delirium. Multifactorial. Possible contribution from medications/low-sodium.: Better -Hyponatremia, hypoosmolar likely hypovolemic. Patient has not been eating drinking for last few days.: improvement Normal saline. Nephrology following Hydrochlorothiazide discontinued -chronic medical debility -Severe cognitive impairment. late onset Alzheimer's dementia TSH normal -Hyperlipidemia Lipitor 40 mg daily at bedtime -Likely Ruiz's cyst right popliteal fossa -Primary osteoarthritis multiple joints Tylenol when necessary - B-12 vitamin deficiency Supplement -Essential hypertension Increase Lopressor 75 mg twice a day, lisinopril 20 mg twice a day. -Diabetes mellitus type 2 on oral hypoglycemic: Uncontrolled with hyperglycemia Metformin hold. Follow Accu-Cheks with sliding scale -Chronic urinary incontinence myrbetriq -Anxiety otherwise specified: Paxil 10 mg day. -Full code Pending authorization for rehab. Blood pressure medication adjusted. Discussed with daughter and the son. And case technician.
[2023-03-18 17:30] LABS: Glucose,Whole Blood 157 mg/dL (70-110)
[2023-03-18] MEDS ORDERED: Magnesium Replacement Protocol 1 EACH MISC MISCELLANE PRN (18:47)
[2023-03-18] MEDS: MAGNESIUM SULFATE-D5W PMX 1 GM in DEXTROSE/WATER 1 100ML.BAG IVPB SCH ×2 (20:15→21:35)
[2023-03-18] MEDS: ATORVASTATIN 40 MG TAB PO SCH (20:15)
[2023-03-18] MEDS: ACETAMINOPHEN TAB 325 MG TAB PO PRN (20:15)
[2023-03-18] MEDS: METOPROLOL TARTRATE 25 MG TAB PO SCH (20:15)
[2023-03-18 20:37] LABS: Glucose,Whole Blood 168 mg/dL (70-110)
[2023-03-19] MEDS: SODIUM CHLORIDE 0.9% 1,000 ML IV SCH ×2 (05:24→20:07)
[2023-03-19 08:14] LABS: Glucose,Whole Blood 144 mg/dL (70-110)
[2023-03-19] MEDS: INSULIN ASPART (NovoLOG) 100 UNIT/ML VIAL SQ SCH ×3 (08:14→17:38)
[2023-03-19] MEDS: APIXABAN 5 MG TAB PO SCH ×2 (09:08→17:44)
[2023-03-19] MEDS: FAMOTIDINE 20 MG TAB PO SCH ×2 (09:08→20:03)
[2023-03-19] MEDS: lisinopriL 20 MG TAB PO SCH ×2 (09:08→20:03)
[2023-03-19] MEDS: METOPROLOL TARTRATE 25 MG TAB PO SCH ×2 (09:08→20:02)
[2023-03-19] MEDS: MAGNESIUM OXIDE 400 MG TAB PO SCH (09:09)
[2023-03-19] MEDS: PARoxetine 10 MG TAB PO SCH (09:09)
[2023-03-19] MEDS: ASPIRIN 81 MG PO SCH (09:09)
[2023-03-19] MEDS: PATIENT'S OWN (Mirabegron [Myrbetriq] 50 MG Tab.Er.24h) PO SCH (11:30)
[2023-03-19] MEDS: ACETAMINOPHEN TAB 325 MG TAB PO PRN ×2 (11:53→17:44)
[2023-03-19] MEDS: DICLOFENAC SODIUM GEL 100 GM TUBE TOPICAL PRN ×2 (12:00→20:06)
--- NOTE | 2023-03-19 12:16 | P.PN ---
Subjective Patient is seen for follow-up for hyponatremia. Currently maintained on normal saline. Serum sodium improved to 130 today. No significant complaints. Patient is awake and communicating fairly well today. Objective - Vital Signs Vital signs: Vital Signs Temp 98.2 F 03/19/23 08:00 Pulse 61 03/19/23 09:08 Resp 16 03/19/23 02:50 BP 172/62 03/19/23 08:00 Pulse Ox 95 03/19/23 08:00 FiO2 Intake & Output 03/18/23 03/19/23 03/19/23 18:59 06:59 18:59 Intake Total 540 1500 180 Balance 540 1500 180 Intake: Intake, IV Titration 1100 Amount Magnesium Sulfate-D5w Pmx 200 1 gm In Dextrose/Water 1 100ml.bag @ 100 mls/hr IVPB Q1H [facility] Rx#: [id number] Sodium Chloride 0.9% 1, 900 000 ml @ 75 mls/hr IV . [id number] [facility] Rx#:[id number] Oral 540 400 180 Other: Voiding Method Diaper Diaper Diaper # Voids 3 2 1 - Exam Patient is sleepy but arousable Examination of the heart S1 and S2 Examination of the lungs decreased breath sounds at the bases Abdomen is soft nontender Examination of lower extremities shows no significant edema - Labs CBC & Chem 7: 03/15/23 15:22 03/19/23 10:15 Labs: Abnormal Lab Results - Last 24 Hours (Table) 03/18/23 03/18/23 03/19/23 Range/Units 17:24 20:36 08:12 Sodium (137-145) mmol/L POC Glucose (mg/dL) 157 H 168 H 144 H (70-110) mg/dL 03/19/23 Range/Units 10:15 Sodium 130 L (137-145) mmol/L POC Glucose (mg/dL) (70-110) mg/dL Assessment and Plan Assessment: 1. Hyponatremia, hypovolemic and improving with normal saline. Thiazide diuretics on hold. 2. Benign hypertension 3. Hypomagnesemia associated with diuretic use and decreased oral intake, being replaced 4. Hypokalemia decreased intake and diuretics status post replacement Plan: Continue with normal saline Replace magnesium Repeat labs in a.m.
[2023-03-19 12:27] LABS: Glucose,Whole Blood 248 mg/dL (70-110)
--- NOTE | 2023-03-19 14:40 | P.PN ---
Progress Note - Text Progress Note Date: 03/19/23 Chief Complaint: Increasing agitation 87-year-old lady with past medical history significant for diabetes, hypertension, hypothyroid poor historian secondary to cognitive impairment presented to the emergency department brought in by family secondary to worsening confusion. Patient was recently discharged from the hospital. Admitted for increasing medical debility. Was doing fairly reasonably okay when discharged from here. Patient now presents with increasing confusion. Daughter and 2 other sons are present in the room. Last Tuesday patient not really able to eat. Having some trouble swallowing. Otherwise normally able to eat. Patient has some weak ness on the right side from a prior stroke. Some weakness reported on the left side. Patient is finding it difficult to find words. Patient is given Robaxin before I came in since patient very sleepy right now. March 16: Patient more awake today. Answering occasional question. In bed. Moving all 4 limbs. Seen by neurology. Computed tomography scan report reviewed by neurology. Stroke felt to be unlikely. Patient most likely having delirium/encephalopathy. EEG negative for epileptiform activity. Serum osmolality added. Nephrology consulted. Spoke to patient's son and daughter. Will DC hydrochlorothiazide. Continue saline. Decreased oral intake. March 17: Some weakness in the left leg. He wanted to by Dr. Rangel from neurology. Feels this is a stroke. Because of patient's dementia MRI cannot be done. 2-D echo will be done. Patient to continue with aspirin eliquis. Seen by urology. Adequate intake of breakfast and lunch. March 18: Up in a recliner. Comfortable. Spoke to vocational case manager. Pending rehab. Spoke to the daughter in the room. Also spoke to patient's son had questions about questionable UTI. UA is negative. Has no urinary symptoms. Oral intake good. Authorization not received. Total time spent today over 50 minutes and 30 minutes of discussion. March 19: Reclining in bed. Finished all of breakfast and lunch. Son at the bedside. Authorization has not been received for rehab. Active Medications Acetaminophen (Acetaminophen Tab 325 Mg Tab) 650 mg PO Q6HR PRN PRN Reason: Mild Pain or Fever > 100.5 Last Admin: 03/19/23 11:53 Dose: 650 mg Apixaban (Apixaban 5 Mg Tab) 5 mg PO AC-BID [facility]; Protocol Last Admin: 03/19/23 09:08 Dose: 5 mg Aspirin (Aspirin 81 Mg) 81 mg PO DAILY [facility] Last Admin: 03/19/23 09:09 Dose: 81 mg Atorvastatin Calcium (Atorvastatin 40 Mg Tab) 40 mg PO HS [facility] Last Admin: 03/18/23 20:15 Dose: 40 mg Dextrose/Water (Dextrose 50% Syringe 50 Ml) 25 ml IVP PER PROTOCOL PRN; Protocol PRN Reason: Hypoglycemia Dextrose/Water (Dextrose 50% Syringe 50 Ml) 50 ml IVP PER PROTOCOL PRN; Protocol PRN Reason: Hypoglycemia Diclofenac Sodium (Diclofenac Sodium Gel 100 Gm Tube) 4 gm TOPICAL QID PRN; Protocol PRN Reason: Pain Last Admin: 03/18/23 20:21 Dose: 4 gm Famotidine (Famotidine 20 Mg Tab) 20 mg PO BID [facility] Last Admin: 03/19/23 09:08 Dose: 20 mg Sodium Chloride (Saline 0.9%) 1,000 mls @ 75 mls/hr IV .[id number] [facility] Last Admin: 03/19/23 05:24 Dose: 75 mls/hr Insulin Aspart (Insulin Aspart (Novolog) 100 Unit/Ml Vial) 0 unit SQ AC-TID [facility]; Protocol Last Admin: 03/19/23 12:56 Dose: 2 unit Lisinopril (Lisinopril 20 Mg Tab) 20 mg PO BID [facility] Last Admin: 03/19/23 09:08 Dose: 20 mg Magnesium Oxide (Magnesium Oxide 400 Mg Tab) 400 mg PO DAILY [facility] Last Admin: 03/19/23 09:09 Dose: 400 mg Metoprolol Tartrate (Metoprolol Tartrate 25 Mg Tab) 75 mg PO BID [facility] Last Admin: 03/19/23 09:08 Dose: 75 mg Miscellaneous Information (Magnesium Replacement Protocol 1 Each Misc) 1 each MISCELLANE DAILY PRN; Protocol PRN Reason: Per Protocol Naloxone HCl (Naloxone 0.4 Mg/Ml 1 Ml Vial) 0.2 mg IV Q2M PRN PRN Reason: Opioid Reversal Patient's Own ( Mirabegron [ Myrbetriq] 50 Mg Tab .Er.24h) 50 mg PO DAILY@1200 [facility] Last Admin: 03/19/23 11:30 Dose: Not Given Paroxetine HCl (Paroxetine 10 Mg Tab) 10 mg PO DAILY [facility] Last Admin: 03/19/23 09:09 Dose: 10 mg Social history: Nonsmoker. No alcohol. Physical examination: VITAL SIGNS: 97.9, 56, 16, 140/64, 98% room air GENERAL: Sitting up in a bed, comfortable EYES: Pupils equal. Conjunctiva normal. HEENT: External appearance of nose and ears normal, oral cavity grossly normal. NECK: JVD not raised; masses not palpable. HEART: First and second heart sounds are normal; no edema. LUNGS: Respiratory rate normal; clear to auscultation. ABDOMEN: Soft, nontender, liver spleen not palpable, no masses palpable. PSYCH: Answering simple questions MUSCULOSKELETAL:No Clubbing/cyanosis;muscles-grossly intact. OA NEUROLOGICAL: No facial asymmetry. Some weakness on the right side. Weakness of the left leg INVESTIGATIONS, reviewed in the clinical context: 2-D echocardiogram: EF 55-60%. March 17: Sodium 125 potassium 3.5 BUN 5 creatinine 0.38. Lesion 1.4 TSH 0.591. Serum osmolality 260 Carotid Doppler: No significant stenosis Computed tomography scan brain: Reviewed by neurology. Not felt to be stroke. EEG: Evidence of encephalopathy. No epileptiform activity. March 16: Sodium 121 potassium 3.5 BUN 6 creatinine 0.41 03/15/2023: White count 9.9 hemoglobin 9.3 platelets 460 sodium 120 potassium 3.4 BUN 19 creatinine 0.39 UA: Ketones 3+ Assessment and plan: -Probably acute stroke causing weakness in the left leg. Aspirin. Eliquis. Because of lying dementia patient cannot have MRI. Will not remains steady. 2-D echo unremarkable. -Metabolic encephalopathy with delirium. Multifactorial. Possible contribution from medications/low-sodium.: Better -Hyponatremia, hypoosmolar likely hypovolemic. Patient has not been eating drinking for last few days.: improvement Normal saline. Nephrology following Hydrochlorothiazide discontinued -chronic medical debility -Severe cognitive impairment. late onset Alzheimer's dementia TSH normal -Hyperlipidemia Lipitor 40 mg daily at bedtime -Likely Ruiz's cyst right popliteal fossa -Primary osteoarthritis multiple joints Tylenol when necessary - B-12 vitamin deficiency Supplement -Essential hypertension Increase Lopressor 75 mg twice a day, lisinopril 20 mg twice a day. -Diabetes mellitus type 2 on oral hypoglycemic: Uncontrolled with hyperglycemia Metformin hold. Follow Accu-Cheks with sliding scale -Chronic urinary incontinence myrbetriq -Anxiety otherwise specified: Paxil 10 mg day. -Full code Pending authorization for rehab. Discussed with son at the bedside. Continue current medications.
[2023-03-19 17:16] LABS: Glucose,Whole Blood 135 mg/dL (70-110)
[2023-03-19] MEDS: ATORVASTATIN 40 MG TAB PO SCH (20:03)
[2023-03-19 21:08] LABS: Glucose,Whole Blood 151 mg/dL (70-110)
[2023-03-20] MEDS: SODIUM CHLORIDE 0.9% 1,000 ML IV SCH ×2 (05:32→18:04)
[2023-03-20 06:32] LABS: African American GFR (CKD) >90 (>60 ml/min/1.73 sqM); Anion Gap 7 mmol/L; Blood Urea Nitrogen 9 mg/dL (7-17); Calcium 9.1 mg/dL (8.4-10.2); Carbon Dioxide 29 mmol/L (22-30); Chloride 94 mmol/L (98-107); Glucose 167 mg/dL (74-99); Non-African American GFR(CKD) >90 (>60 ml/min/1.73 sqM); Potassium 3.7 mmol/L (3.5-5.1); Sodium 130 mmol/L (137-145)
[2023-03-20 07:05] LABS: Glucose,Whole Blood 180 mg/dL (70-110)
[2023-03-20] MEDS: APIXABAN 5 MG TAB PO SCH ×2 (08:29→18:04)
[2023-03-20] MEDS: lisinopriL 20 MG TAB PO SCH ×2 (08:29→20:27)
[2023-03-20] MEDS: ACETAMINOPHEN TAB 325 MG TAB PO PRN ×3 (08:29→20:55)
[2023-03-20] MEDS: ASPIRIN 81 MG PO SCH (08:29)
[2023-03-20] MEDS: FAMOTIDINE 20 MG TAB PO SCH ×2 (08:30→20:27)
[2023-03-20] MEDS: MAGNESIUM OXIDE 400 MG TAB PO SCH (08:30)
[2023-03-20] MEDS: INSULIN ASPART (NovoLOG) 100 UNIT/ML VIAL SQ SCH ×3 (08:30→18:04)
[2023-03-20] MEDS: METOPROLOL TARTRATE 25 MG TAB PO SCH ×2 (08:30→20:26)
[2023-03-20] MEDS: PARoxetine 10 MG TAB PO SCH (08:30)
[2023-03-20] MEDS: PATIENT'S OWN (Mirabegron [Myrbetriq] 50 MG Tab.Er.24h) PO SCH (11:45)
[2023-03-20] MEDS: DICLOFENAC SODIUM GEL 100 GM TUBE TOPICAL PRN ×2 (11:59→20:34)
[2023-03-20 12:16] LABS: Glucose,Whole Blood 178 mg/dL (70-110)
--- NOTE | 2023-03-20 12:18 | P.PN ---
Subjective Patient is seen for follow-up for hyponatremia. Currently maintained on normal saline. Serum sodium staying at 130 No significant complaints. No urine retention. Patient is awake and communicating fairly well today. Objective - Vital Signs Vital signs: Vital Signs Temp 98.1 F 03/20/23 12:11 Pulse 58 L 03/20/23 12:11 Resp 16 03/20/23 12:11 BP 152/64 03/20/23 12:11 Pulse Ox 92 L 03/20/23 12:11 FiO2 Intake & Output 03/19/23 03/20/23 03/20/23 18:59 06:59 18:59 Intake Total 360 590 Balance 360 590 Intake: Oral 360 590 Other: Voiding Method Diaper Diaper Diaper Incontinent # Voids 1 3 1 - Exam Patient is awake, comfortable, answers questions appropriately Examination of the heart S1 and S2 Examination of the lungs decreased breath sounds at the bases Abdomen is soft nontender Examination of lower extremities shows no significant edema - Labs CBC & Chem 7: 03/15/23 15:22 03/20/23 06:02 Labs: Abnormal Lab Results - Last 24 Hours (Table) 03/19/23 03/19/23 03/19/23 Range/Units 12:25 17:14 21:07 Sodium (137-145) mmol/L Chloride (98-107) mmol/L Creatinine (0.52-1.04) mg/dL Glucose (74-99) mg/dL POC Glucose (mg/dL) 248 H 135 H 151 H (70-110) mg/dL 03/20/23 03/20/23 03/20/23 Range/Units 06:02 07:04 12:15 Sodium 130 L (137-145) mmol/L Chloride 94 L (98-107) mmol/L Creatinine 0.35 L (0.52-1.04) mg/dL Glucose 167 H (74-99) mg/dL POC Glucose (mg/dL) 180 H 178 H (70-110) mg/dL Assessment and Plan Assessment: 1. Hyponatremia, hypovolemic and improving with normal saline. Thiazide diuretics on hold. 2. Benign hypertension 3. Hypomagnesemia associated with diuretic use and decreased oral intake, being replaced 4. Hypokalemia decreased intake and diuretics status post replacement Plan: Continue with normal saline Continue magnesium supplementation Repeat labs in a.m.
--- NOTE | 2023-03-20 14:03 | P.PN ---
Progress Note - Text Progress Note Date: 03/20/23 Chief Complaint: Increasing agitation 87-year-old lady with past medical history significant for diabetes, hypertension, hypothyroid poor historian secondary to cognitive impairment presented to the emergency department brought in by family secondary to worsening confusion. Patient was recently discharged from the hospital. Admitted for increasing medical debility. Was doing fairly reasonably okay when discharged from here. Patient now presents with increasing confusion. Daughter and 2 other sons are present in the room. Last Tuesday patient not really able to eat. Having some trouble swallowing. Otherwise normally able to eat. Patient has some weak ness on the right side from a prior stroke. Some weakness reported on the left side. Patient is finding it difficult to find words. Patient is given Robaxin before I came in since patient very sleepy right now. March 16: Patient more awake today. Answering occasional question. In bed. Moving all 4 limbs. Seen by neurology. Computed tomography scan report reviewed by neurology. Stroke felt to be unlikely. Patient most likely having delirium/encephalopathy. EEG negative for epileptiform activity. Serum osmolality added. Nephrology consulted. Spoke to patient's son and daughter. Will DC hydrochlorothiazide. Continue saline. Decreased oral intake. March 17: Some weakness in the left leg. He wanted to by Dr. Rangel from neurology. Feels this is a stroke. Because of patient's dementia MRI cannot be done. 2-D echo will be done. Patient to continue with aspirin eliquis. Seen by urology. Adequate intake of breakfast and lunch. March 18: Up in a recliner. Comfortable. Spoke to top case assembler. Pending rehab. Spoke to the daughter in the room. Also spoke to patient's son had questions about questionable UTI. UA is negative. Has no urinary symptoms. Oral intake good. Authorization not received. Total time spent today over 50 minutes and 30 minutes of discussion. March 19: Reclining in bed. Finished all of breakfast and lunch. Son at the bedside. Authorization has not been received for rehab. March 20: Pending rehab. Eating well. Spoke to the son. Social history: Nonsmoker. No alcohol. Physical examination: VITAL SIGNS: 98.1, 58, 16, 152/64, 92% room air GENERAL: Propped up, comfortable EYES: Pupils equal. Conjunctiva normal. HEENT: External appearance of nose and ears normal, oral cavity grossly normal. NECK: JVD not raised; masses not palpable. HEART: First and second heart sounds are normal; no edema. LUNGS: Respiratory rate normal; clear to auscultation. ABDOMEN: Soft, nontender, liver spleen not palpable, no masses palpable. PSYCH: Answering simple questions MUSCULOSKELETAL:No Clubbing/cyanosis;muscles-grossly intact. OA NEUROLOGICAL: No facial asymmetry. Some weakness on the right side. Weakness of the left leg INVESTIGATIONS, reviewed in the clinical context: March 20: Sodium 1:30 potassium 3.7 creatinine 0.35 2-D echocardiogram: EF 55-60%. March 17: Sodium 125 potassium 3.5 BUN 5 creatinine 0.38. Lesion 1.4 TSH 0.591. Serum osmolality 260 Carotid Doppler: No significant stenosis Computed tomography scan brain: Reviewed by neurology. Not felt to be stroke. EEG: Evidence of encephalopathy. No epileptiform activity. March 16: Sodium 121 potassium 3.5 BUN 6 creatinine 0.41 03/15/2023: White count 9.9 hemoglobin 9.3 platelets 460 sodium 120 potassium 3.4 BUN 19 creatinine 0.39 UA: Ketones 3+ Assessment and plan: -Probably acute stroke causing weakness in the left leg. Aspirin. Eliquis. Because of lying dementia patient cannot have MRI. Will not remains steady. 2-D echo unremarkable. -Metabolic encephalopathy with delirium. Multifactorial. Possible contribution from medications/low-sodium.: Better -Hyponatremia, hypoosmolar likely hypovolemic. Patient has not been eating drinking for last few days.: Better Normal saline. Nephrology following Hydrochlorothiazide discontinued -chronic medical debility -Severe cognitive impairment. late onset Alzheimer's dementia TSH normal -Hyperlipidemia Lipitor 40 mg daily at bedtime -Likely Ruiz's cyst right popliteal fossa -Primary osteoarthritis multiple joints Tylenol when necessary - B-12 vitamin deficiency Supplement -Essential hypertension Increase Lopressor 75 mg twice a day, lisinopril 20 mg twice a day. -Diabetes mellitus type 2 on oral hypoglycemic: Uncontrolled with hyperglycemia Metformin hold. Follow Accu-Cheks with sliding scale -Chronic urinary incontinence myrbetriq -Anxiety otherwise specified: Paxil 10 mg day. -Full code Pending authorization for rehab. Discussed with son .
[2023-03-20 17:04] LABS: Glucose,Whole Blood 171 mg/dL (70-110)
[2023-03-20] MEDS: ATORVASTATIN 40 MG TAB PO SCH (20:26)
[2023-03-20 20:50] LABS: Glucose,Whole Blood 208 mg/dL (70-110)
[2023-03-21] MEDS: SODIUM CHLORIDE 0.9% 1,000 ML IV SCH (05:52)
[2023-03-21 08:07] LABS: Glucose,Whole Blood 167 mg/dL (70-110)
[2023-03-21] MEDS: MAGNESIUM OXIDE 400 MG TAB PO SCH (08:33)
[2023-03-21] MEDS: INSULIN ASPART (NovoLOG) 100 UNIT/ML VIAL SQ SCH (08:33)
[2023-03-21] MEDS: PARoxetine 10 MG TAB PO SCH (08:33)
[2023-03-21] MEDS: METOPROLOL TARTRATE 25 MG TAB PO SCH (08:33)
[2023-03-21] MEDS: APIXABAN 5 MG TAB PO SCH (08:34)
[2023-03-21] MEDS: ASPIRIN 81 MG PO SCH (08:34)
[2023-03-21] MEDS: lisinopriL 20 MG TAB PO SCH (08:34)
[2023-03-21] MEDS: FAMOTIDINE 20 MG TAB PO SCH (08:34)
--- NOTE | 2023-03-21 11:06 | P.DS ---
Providers Date of admission: 03/15/23 15:55 Expected date of discharge: 03/21/23 Attending physician: Kalia Stevens Consults: 03/15/23 22:05 Consult Physician Routine Consulting Provider: Yasmin Barrett Consult Reason/Comments: Possible stroke Do you want consulting provider notified?: Yes 03/16/23 16:24 Consult Physician Routine Consulting Provider: Nathaniel Márquez Consult Reason/Comments: low sodium Do you want consulting provider notified?: Yes Primary care physician: Tristin [facility] Course: Chief Complaint: Increasing agitation 87-year-old lady with past medical history significant for diabetes, hypertension, hypothyroid poor historian secondary to cognitive impairment presented to the emergency department brought in by family secondary to worsening confusion. Patient was recently discharged from the hospital. Admitted for increasing medical debility. Was doing fairly reasonably okay when discharged from here. Patient now presents with increasing confusion. Daughter and 2 other sons are present in the room. Last Tuesday patient not really able to eat. Having some trouble swallowing. Otherwise normally able to eat. Patient has some weakness on the right side from a prior stroke. Some weakness reported on the left side. Patient is finding it difficult to find words. Patient is given Robaxin before I came in since patient very sleepy right now. March 16: Patient more awake today. Answering occasional question. In bed. Moving all 4 limbs. Seen by neurology. Computed tomography scan report revi ewed by neurology. Stroke felt to be unlikely. Patient most likely having delirium/encephalopathy. EEG negative for epileptiform activity. Serum osmolality added. Nephrology consulted. Spoke to patient's son and daughter. Will DC hydrochlorothiazide. Continue saline. Decreased oral intake. March 17: Some weakness in the left leg. He wanted to by Dr. Rangel from neurology. Feels this is a stroke. Because of patient's dementia MRI cannot be done. 2-D echo will be done. Patient to continue with aspirin eliquis. Seen by urology. Adequate intake of breakfast and lunch. March 18: Up in a recliner. Comfortable. Spoke to pillowcase cleaner. Pending rehab. Spoke to the daughter in the room. Also spoke to patient's son had questions about questionable UTI. UA is negative. Has no urinary symptoms. Oral intake good. Authorization not received. Total time spent today over 50 minutes and 30 minutes of discussion. March 19: Reclining in bed. Finished all of breakfast and lunch. Son at the bedside. Authorization has not been received for rehab. March 20: Pending rehab. Eating well. Spoke to the son. March 21: Stable. Tolerating diet. Patient is going to rehab at [facility]. OBRA completed. Discussion and discharge planning more than 35 minutes Social history: Nonsmoker. No alcohol. Physical examination: VITAL SIGNS: 97.9, 59, 16, 138/58, 96% room air GENERAL: , comfortable EYES: Pupils equal. Conjunctiva normal. HEENT: External appearance of nose and ears normal, oral cavity grossly normal. NECK: JVD not raised; masses not palpable. HEART: First and second heart sounds are normal; no edema. LUNGS: Respiratory rate normal; clear to auscultation. ABDOMEN: Soft, nontender, liver spleen not palpable, no masses palpable. PSYCH: Answering simple questions MUSCULOSKELETAL:No Clubbing/cyanosis;muscles-grossly intact. OA NEUROLOGICAL: No facial asymmetry. Some weakness on the right side. Weakness of the left leg INVESTIGATIONS, reviewed in the clinical context: March 20: Sodium 1:30 potassium 3.7 creatinine 0.35 2-D echocardiogram: EF 55-60%. March 17: Sodium 125 potassium 3.5 BUN 5 creatinine 0.38. Lesion 1.4 TSH 0.591. Serum osmolality 260 Carotid Doppler: No significant stenosis Computed tomography scan brain: Reviewed by neurology. Not felt to be stroke. EEG: Evidence of encephalopathy. No epileptiform activity. March 16: Sodium 121 potassium 3.5 BUN 6 creatinine 0.41 03/15/2023: White count 9.9 hemoglobin 9.3 platelets 460 sodium 120 potassium 3.4 BUN 19 creatinine 0.39 UA: Ketones 3+ Assessment and plan: -Probably acute stroke causing weakness in the left leg. Aspirin. Eliquis. Because of dementia patient cannot have MRI. ( Will not remains steady.) 2-D echo unremarkable. -Metabolic encephalopathy with delirium. Multifactorial. Possible contribution from medications/low-sodium.: Improved -Hyponatremia, hypoosmolar likely hypovolemic. Patient has not been eating drinking for last few days.: Better Normal saline. Nephrology following Hydrochlorothiazide discontinued Fluids restriction: 1800 mL a day -chronic medical debility -Severe cognitive impairment. late onset Alzheimer's dementia TSH normal -Hyperlipidemia Lipitor 40 mg daily at bedtime -Likely Ruiz's cyst right popliteal fossa -Primary osteoarthritis multiple joints Tylenol when necessary - B-12 vitamin deficiency Supplement -Essential hypertension Increase Lopressor 75 mg twice a day, lisinopril 20 mg twice a day. -Diabetes mellitus type 2 on oral hypoglycemic: Uncontrolled with hyperglycemia Metformin hold. Follow Accu-Cheks with sliding scale -Chronic urinary incontinence myrbetriq -Anxiety otherwise specified: Paxil 10 mg day. -Full code Disposition: Rehab at [facility] in [facility] - Discharge Summary New Discharge Prescriptions: New Aspirin 81 mg PO DAILY tab Diclofenac Sodium Gel [Voltaren 1% Gel] 4 gm TOPICAL QID PRN gm PRN Reason: Pain INSULIN ASPART (NovoLOG) [NovoLOG (formulary)] 0 unit SQ AC-TID each Famotidine [Pepcid] 20 mg PO BID tab lisinopriL [Zestril] 20 mg PO BID tab Metoprolol Tartrate [Lopressor] 75 mg PO BID tab Continue Cyanocobalamin (Vitamin B-12) [Vitamin B-12] 1,000 mcg PO DAILY@1200 Magnesium Oxide [Mag-Ox] 400 mg PO BID #20 tab Mirabegron [Myrbetriq] 50 mg PO DAILY@1200 Apixaban [Eliquis] 5 mg PO AC-BID Atorvastatin [Lipitor] 40 mg PO HS metFORMIN HCL 1,000 mg PO BID #60 tablet PARoxetine [Paxil] 10 mg PO DAILY #30 tab Acetaminophen Tab [Tylenol] 650 mg PO Q6HR PRN tab PRN Reason: Mild Pain Or Fever > 100.5 Discontinued methocarbamoL [Robaxin] 500 mg PO QID PRN #60 tab PRN Reason: Spasms Lisinopril-Hctz 20-12.5 mg [Zestoretic 20-12.5] 1 tab PO BID Sulfamethox-Tmp 800-160Mg [Bactrim DS 800-160 mg] 1 tab PO BID Metoprolol Tartrate [Lopressor] 25 mg PO Q12H Discharge Medication List Apixaban [Eliquis] 5 mg PO AC-BID 04/24/22 [History] Cyanocobalamin (Vitamin B-12) [Vitamin B-12] 1,000 mcg PO DAILY@1200 04/24/22 [History] Mirabegron [Myrbetriq] 50 mg PO DAILY@1200 04/24/22 [History] Atorvastatin [Lipitor] 40 mg PO HS 10/13/22 [History] Acetaminophen Tab [Tylenol] 650 mg PO Q6HR PRN tab 01/26/23 [Rx] Magnesium Oxide [Mag-Ox] 400 mg PO BID #20 tab 01/26/23 [Rx] PARoxetine [Paxil] 10 mg PO DAILY #30 tab 01/26/23 [Rx] metFORMIN HCL 1,000 mg PO BID #60 tablet 01/26/23 [Rx] Aspirin 81 mg PO DAILY tab 03/18/23 [Rx] Diclofenac Sodium Gel [Voltaren 1% Gel] 4 gm TOPICAL QID PRN gm 03/18/23 [Rx] Famotidine [Pepcid] 20 mg PO BID tab 03/18/23 [Rx] INSULIN ASPART (NovoLOG) [NovoLOG (formulary)] 0 unit SQ AC-TID each 03/18/23 [Rx] lisinopriL [Zestril] 20 mg PO BID tab 03/18/23 [Rx] Metoprolol Tartrate [Lopressor] 75 mg PO BID tab 03/21/23 [Rx] Follow up Appointment(s)/Referral(s): [facility] [NON-STAFF] - 1 Week Tristin Brennan MD [Primary Care Provider] - 1 Week Gabrielle Saab MD [REFERRING] - 1-2 days Discharge/Stand Alone Forms: Adult Foster [facility] List, Assisted Living Facilities, Community Resources
[2023-03-21] MEDS: PATIENT'S OWN (Mirabegron [Myrbetriq] 50 MG Tab.Er.24h) PO SCH (11:47)
[2023-03-21 12:03] VITALS: BP 150/68; PULSE 55; RESP 18; TEMP 98
--- NOTE | 2023-03-21 12:19 | P.PN ---
Subjective Patient is seen for follow-up for hyponatremia. Currently maintained on normal saline. Serum sodium staying at 130. It is 129 today. No significant complaints. No urine retention. Patient is awake and communicating fairly well today. Objective - Vital Signs Vital signs: Vital Signs Temp 98.0 F 03/21/23 11:16 Pulse 55 L 03/21/23 11:16 Resp 18 03/21/23 11:16 BP 150/68 03/21/23 11:16 Pulse Ox 97 03/21/23 11:16 FiO2 Intake & Output 03/20/23 03/21/23 03/21/23 18:59 06:59 18:59 Intake Total 0 Output Total 590 Balance -590 0 Intake: Oral 0 Output: Urine 590 Other: Voiding Method Diaper Diaper Diaper Incontinent Incontinent Incontinent # Voids 1 2 - Exam Patient is awake, comfortable, answers questions appropriately Examination of the heart S1 and S2 Examination of the lungs decreased breath sounds at the bases Abdomen is soft nontender Examination of lower extremities shows no significant edema - Labs CBC & Chem 7: 03/15/23 15:22 03/21/23 10:42 Labs: Abnormal Lab Results - Last 24 Hours (Table) 03/20/23 03/20/23 03/20/23 Range/Units 12:15 17:02 20:26 Sodium (137-145) mmol/L POC Glucose (mg/dL) 178 H 171 H 208 H (70-110) mg/dL 03/21/23 03/21/23 Range/Units 08:04 10:42 Sodium 129 L (137-145) mmol/L POC Glucose (mg/dL) 167 H (70-110) mg/dL Assessment and Plan Assessment: 1. Hyponatremia, hypovolemic and improving with normal saline. Thiazide diuretics on hold. 2. Benign hypertension 3. Hypomagnesemia associated with diuretic use and decreased oral intake, maintained on supplementation 4. Hypokalemia decreased intake and diuretics status post replacement Plan: Patient pulled out her IV last night. Patient will be given small dose of Samsca prior to discharge. Continue magnesium supplementation
[2023-03-21 12:29] LABS: Glucose,Whole Blood 204 mg/dL (70-110)
[2023-03-21] MEDS ORDERED: TOLVAPTAN 15 MG TABLET PO ONE (12:30)
== END 2023-03-21 13:21 | DRG 640 ==
LOC: EC 13:27 → 5NMEDONC 15:55
PROVIDERS: ADMIT Hospitalist; ATTEND Hospitalist
DX: E87.1 Hypo-osmolality and hyponatremia (principal); G93.41 Metabolic encephalopathy; F05 Delirium due to known physiological condition; I69.354 Hemiplegia and hemiparesis following cerebral infarction affecting left non-dominant side; F02.84 Dementia in other diseases classified elsewhere, unspecified severity, with anxiety; G30.1 Alzheimer's disease with late onset; D64.9 Anemia, unspecified; F02.80 Dementia in other diseases classified elsewhere, unspecified severity, without behavioral disturbance, psychotic disturbance, mood disturbance, and anxiety; E03.9 Hypothyroidism, unspecified; Z79.890 Hormone replacement therapy; I69.30 Unspecified sequelae of cerebral infarction; I10 Essential (primary) hypertension; E86.1 Hypovolemia; E87.6 Hypokalemia; E83.42 Hypomagnesemia; R53.81 Other malaise; R13.10 Dysphagia, unspecified; E11.65 Type 2 diabetes mellitus with hyperglycemia; E78.5 Hyperlipidemia, unspecified; M15.9 Polyosteoarthritis, unspecified; E53.8 Deficiency of other specified B group vitamins; R32 Unspecified urinary incontinence; E11.9 Type 2 diabetes mellitus without complications; F41.9 Anxiety disorder, unspecified; M71.21 Synovial cyst of popliteal space [Baker], right knee; Z79.01 Long term (current) use of anticoagulants; Z79.82 Long term (current) use of aspirin; Z79.84 Long term (current) use of oral hypoglycemic drugs; Z85.828 Personal history of other malignant neoplasm of skin; Z79.899 Other long term (current) drug therapy
CPT/HCPCS: 36415; 70450; 80048; 80053; 81003; 82728; 83540; 83550; 83605; 83690; 83735; 83930; 84295; 84443; 85025; 93005; 93306; 93880; 95816; 96361; 96365; 96366; 96367; 96368; 96375; 99285

== ENCOUNTER 2023-04-30 16:33 | Emergency (ER) | payer MEDICARE ==
[2023-04-30 16:58] VITALS: RESP 18
[2023-04-30] MEDS ORDERED: SODIUM CHLORIDE 0.9% 500 ML 500 ML IV STA (17:15)
[2023-04-30] MEDS ORDERED: PANTOPRAZOLE 40 MG/10 ML VIAL IVP STA (17:16)
[2023-04-30 17:54] LABS: Anisocytosis Slight; Basophils % (A) 0 %; Eosinophils # (A) 0.1 k/uL (0-0.7); Eosinophils % (A) 2 %; HCT 27.5 % (34.0-46.0); HGB 8.2 gm/dL (11.4-16.0); Hypochromasia Marked; Lymphocytes # (A) 2.2 k/uL (1.0-4.8); Lymphocytes % (A) 26 %; MCH 19.5 pg (25.0-35.0); MCHC 29.7 g/dL (31.0-37.0); MCV 65.9 fL (80.0-100.0); Microcytosis Marked; Monocytes # (A) 0.4 k/uL (0-1.0); Monocytes % (A) 5 %; Neutrophils # (A) 5.4 k/uL (1.3-7.7); Neutrophils % (A) 64 %; Platelet Count 312 k/uL (150-450); Poikilocytosis Slight; RBC 4.17 m/uL (3.80-5.40); RDW 18.1 % (11.5-15.5); WBC 8.5 k/uL (3.8-10.6)
[2023-04-30 18:07] LABS: INR 0.9 (<1.2); Prothrombin Time 10.5 sec (10.0-12.5)
[2023-04-30] MEDS ORDERED: MORPHINE SULFATE 4 MG/ML SYRINGE IVP STA (18:21)
[2023-04-30 18:22] LABS: ALT 16 U/L (4-34); AST 18 U/L (14-36); African American GFR (CKD) >90 (>60 ml/min/1.73 sqM); Albumin 3.6 g/dL (3.5-5.0); Alkaline Phosphatase 94 U/L (38-126); Anion Gap 14 mmol/L; Blood Urea Nitrogen 28 mg/dL (7-17); Calcium 9.2 mg/dL (8.4-10.2); Carbon Dioxide 22 mmol/L (22-30); Chloride 99 mmol/L (98-107); Glucose 139 mg/dL (74-99); Magnesium 1.4 mg/dL (1.6-2.3); Non-African American GFR(CKD) 87 (>60 ml/min/1.73 sqM); Potassium 4.2 mmol/L (3.5-5.1); Sodium 135 mmol/L (137-145); Total Bilirubin 0.3 mg/dL (0.2-1.3); Total Protein 6.1 g/dL (6.3-8.2)
[2023-04-30] MEDS ORDERED: ORPHENADRINE 30 MG/ML 2 ML VIAL IVP STA (19:03)
--- NOTE | 2023-04-30 20:44 | CT ---
EXAMINATION TYPE: CT abdomen pelvis w con CT DLP: 438.9 mGycm, Automated exposure control for dose reduction was used. DATE OF EXAM: 04/30/2023 7:08 PM COMPARISON: None. CLINICAL INDICATION:Female, 87 years old with history of rectal bleeding; Rectal bleeding. TECHNIQUE: Axial CT of the abdomen and pelvis. Sagittal and coronal reformats were created on a [employer] workstation. Contrast used:100 ml mL of Isovue 300 with IV Contrast, (none if empty) Oral contrast used: without Oral Contrast (none if empty) FINDINGS: LOWER CHEST: Heart appears mildly enlarged. Moderate coronary tear calcifications, appears greatest a t the origin of the right coronary artery. Mildly thickened appearance of the distal esophageal wall with stellate radiodensity which might are present calcification, foreign body, or postsurgical crowley es. Mild bibasilar subsegmental atelectasis. ABDOMEN LIVER: A few small vague low-attenuation nodules throughout the liver. GALLBLADDER AND BILE DUCTS: Status post cholecystectomy. The CBD appears dilated up to 15 mm, tapers distally without clear evidence of obstructing etiology. PANCREAS: Unremarkable. SPLEEN: Unremarkable. ADRENAL GLANDS: Mildly thickened without evidence of mass.. KIDNEYS AND URETERS: Kidneys enhance symmetrically. There is no evidence of hydronephrosis. PELVIS BLADDER: Mildly distended, appears unremarkable. REPRODUCTIVE: Uterus appears absent. A pessary is present. ABDOMEN & PELVIS STOMACH AND BOWEL: Stomach and small bowel are nondistended. Punctate densities and duodenum likely i ngested material. No evidence of small bowel obstruction. Appendix is not visualized. There is modera te stool seen throughout the colon, greatest distally. Rectum is tortuous and difficult to assess. Th ere are multiple diverticula seen, greatest in the sigmoid region, without definite focal inflammatio n to suggest diverticulitis. There is some wall thickening suggested in the sigmoid colon without lilly dence of obstruction or clearly defined mass. PERITONEUM/RETROPERITONEUM: No evidence of pneumoperitoneum or free fluid. VASCULATURE: Moderate to heavy atherosclerotic calcifications of the abdominal aorta and branches. Mi ld narrowing of the proximal celiac and superior mesenteric arteries. Mild narrowing of the proximal renal arteries. Infrarenal aorta is tortuous without evidence of AAA. Mild ectasia of the bilateral c ommon iliac arteries, 15 mm bilaterally. Diffuse atherosclerotic disease throughout the iliac arteria l trees without high-grade stenosis visualized. MUSCULOSKELETAL: Bones appear somewhat demineralized. No acute osseous abnormality. Moderate degenera tive changes throughout the visualized spine with moderate spinal canal and neural foraminal stenoses at the L4-L5 and L5-S1 levels. LYMPH NODES: No gross evidence for lymphadenopathy. SOFT TISSUE/ABDOMINAL WALL: Unremarkable IMPRESSION: 1. Moderate stool throughout the colon with numerous diverticula, mostly in the sigmoid region. Thic kened appearance of the sigmoid wall could be due to the diverticular disease or possibly colitis. Un derlying malignancy considered less likely but not excluded. 2. Status post cholecystectomy, with prominence of the biliary tree which seems somewhat greater nellie n expected even given patient age and postcholecystectomy status. Correlate clinically with LFTs. 3. Other chronic and likely incidental findings, as described above.
--- NOTE | 2023-04-30 21:55 | ED ---
GI Bleed HPI - General Chief complaint: GI Bleed Stated complaint: GI Bleed Time Seen by Provider: 04/30/23 17:03 Source: patient, family Mode of arrival: wheelchair Limitations: no limitations - History of Present Illness Initial comments: 87-year-old female brought in by family with concerns for rectal bleeding. The bleeding started today. Patient notes no abdominal pain, nausea, vomiting. When asked if she has diarrhea patient states "I always do". Patient does have history of polyps seen on previous colonoscopies at [facility]. Patient is on eliquis. No fevers or chills. No chest pain or difficulty breathing. - Related Data Home Medications Medication Instructions Recorded Confirmed Apixaban [Eliquis] 5 mg PO BID 04/24/22 04/30/23 Cyanocobalamin (Vitamin B-12) 1,000 mcg PO HS@199904/24/22 04/30/23 [Vitamin B-12] Mirabegron [Myrbetriq] 50 mg PO DAILY 04/24/22 04/30/23 Atorvastatin [Lipitor] 40 mg PO HS@199910/13/22 04/30/23 Levothyroxine(Unknown Dose) 1 tab PO DAILY 04/30/23 04/30/23 metFORMIN HCL 1,000 mg PO BID-W/MEALS 04/30/23 04/30/23 Previous Rx's Medication Instructions Recorded Magnesium Oxide [Mag-Ox] 400 mg PO BID #20 tab 01/26/23 PARoxetine [Paxil] 10 mg PO DAILY #30 tab 01/26/23 Aspirin 81 mg PO DAILY tab 03/18/23 Famotidine [Pepcid] 20 mg PO BID tab 03/18/23 lisinopriL [Zestril] 20 mg PO BID tab 03/18/23 Metoprolol Tartrate [Lopressor] 75 mg PO BID tab 03/21/23 Allergies Allergy/AdvReac Type Severity Reaction Status Date / Time No Known Allergies Allergy Verified 04/30/23 19:37 Review of Systems ROS Statement: Those systems with pertinent positive or pertinent negative responses have been documented in the HPI. ROS Other: All systems not noted in ROS Statement are negative. Past Medical History Past Medical History: CVA/TIA, Diabetes Mellitus, GI Bleed, Hypertension, Thyroid Disorder History of Any Multi-Drug Resistant Organisms: None Reported Past Surgical History: No Surgical Hx Reported Past Anesthesia/Blood Transfusion Reactions: No Reported Reaction Past Psychological History: No Psychological Hx Reported Smoking Status: Never smoker Past Alcohol Use History: None Reported Past Drug Use History: None Reported General Exam Limitations: no limitations General appearance: alert, in no apparent distress Head exam: Present: atraumatic, normocephalic, normal inspection Eye exam: Present: normal appearance, EOMI Neck exam: Present: normal inspection, full ROM Respiratory exam: Present: normal lung sounds bilaterally. Absent: respiratory distress, wheezes, rales, rhonchi, stridor Cardiovascular Exam: Present: regular rate, normal rhythm, normal heart sounds. Absent: systolic murmur, diastolic murmur, rubs, gallop, clicks GI/Abdominal exam: Present: soft. Absent: distended, tenderness, guarding, rebound, rigid Rectal exam: Present: normal rectal tone, heme (+) stool Neurological exam: Present: alert, oriented X3 Psychiatric exam: Present: normal affect, normal mood Skin exam: Present: warm, dry, intact, normal color. Absent: rash Course Vital Signs 04/30/23 04/30/23 04/30/23 16:51 18:19 19:57 Temperature 99.2 F Pulse Rate 69 90 62 Respiratory 18 18 Rate Blood Pressure 165/87 188/94 181/82 O2 Sat by Pulse 98 98 95 Oximetry 04/30/23 23:25 Temperature 98.1 F Pulse Rate 78 Respiratory 18 Rate Blood Pressure 148/68 O2 Sat by Pulse 98 Oximetry Medical Decision Making - Medical Decision Making Was pt. sent in by a medical professional or institution (, PA, [employer], urgent care, hospital, or fpc...) When possible be specific @ -No Did you speak to anyone other than the patient for history (EMS, parent, family, police, friend...)? What history was obtained from this source @ -History supplemented by family at bedside Did you review nursing and triage notes (agree or disagree)? Why? @ -I reviewed and agree with nursing and triage notes Were old charts reviewed (outside hosp., previous admission, EMS record, old EKG, old radiological studies, urgent care reports/EKG's, fpc records)? Report findings @ -No old charts were reviewed Differential Diagnosis (chest pain, altered mental status, abdominal pain women, abdominal pain men, vaginal bleeding, weakness, fever, dyspnea, syncope, headache, dizziness, GI bleed, back pain, seizure, CVA, palpatations, mental health, musculoskeletal)? @ -[facility] Differential GI Bleed: Esophageal varices, aortoenteric fistula, Shanna-Juan, gastritis, peptic ulcer disease, diverticulosis, inflammatory bowel disease, hemorrhoids, fissure, colitis, malignancy, Meckels diverticulum this is not meant to be an all- inclusive list. EKG interpreted by me (3pts min.). @ -As above X-rays interpreted by me (1pt min.). @ -None done CT interpreted by me (1pt min.). @ -Moderate stool throughout the colon with numerous diverticula, mostly in the sigmoid region. Thickened appearance of the sigmoid wall can be due to the diverticular disease or possibly colitis. Underlying malignancy considered less likely but not excluded. Status post cholecystectomy with prominence of the biliary tree which is somewhat greater than expected given the patient's age and postcholecystectomy status. Correlate clinically with LFTs. Other chronic and likely incidental findings. U/S interpreted by me (1pt. min.). @ -None done What testing was considered but not performed or refused? (CT, X-rays, U/S, labs)? Why? @ -None What meds were considered but not given or refused? Why? @ -None Did you discuss the management of the patient with other professionals (professionals i.e. , PA, [employer], lab, RT, psych nurse, foster care social worker, cottage cheese maker, teacher, water resources technical officer, family caseworker)? Give summary @ -Spoke with Dr. Hyman at [facility] who accepted transfer Was smoking cessation discussed for >3mins.? @ -No Was critical care preformed (if so, how long)? @ -No Were there social determinants of health that impacted care today? How? (Homelessness, low income, unemployed, alcoholism, drug addiction, transportation, low edu. Level, literacy, decrease access to med. care, alf, rehab)? @ -No Was there de-escalation of care discussed even if they declined (Discuss DNR or withdrawal of care, Hospice)? DNR status @ -No What co-morbidities impacted this encounter? (DM, HTN, Smoking, COPD, CAD, Cancer, CVA, ARF, Chemo, Hep., AIDS, mental health diagnosis, sleep apnea, morbid obesity)? @ -None Was patient admitted / discharged? Hospital course, mention meds given and route, prescriptions, significant lab abnormalities, going to OR and other pertinent info. @ -87-year-old female presenting with chief complaint of rectal bleeding. No abdominal pain. History and physical are conducted. Patient is given IV fluids and 40 mg Protonix. Hemoglobin 8.2, seems to be consistent with the patient's baseline. Lactic acid 3.5. UN 28. Positive stool occult blood. CT shows numerous diverticula with some wall thickening which may be due to diverticular disease or possible colitis with underlying malignancy not excluded. On rectal exam gross blood is noted. We do not have GI services, patient will require transfer. Family is requesting transfer to [facility]. Patient is accepted. I discussed this case with my attending Dr. Matos. Undiagnosed new problem with uncertain prognosis? @ -No Drug Therapy requiring intensive monitoring for toxicity (Heparin, Nitro, Insulin, Cardizem)? @ -No Were any procedures done? @ -No Diagnosis/symptom? @ -GI bleed Acute, or Chronic, or Acute on Chronic? @ -Acute Uncomplicated (without systemic symptoms) or Complicated (systemic symptoms)? @ -Complicated Side effects of treatment? @ -No Exacerbation, Progression, or Severe Exacerbation? @ -No Poses a threat to life or bodily function? How? (Chest pain, [place], [place], pneumonia, PE, COPD, DKA, ARF, appy, cholecystitis, CVA, Diverticulitis, Homicidal, Suicidal, threat to staff... and all critical care pts) @ -yes - Lab Data Result diagrams: 04/30/23 17:26 04/30/23 17:26 Lab Results 04/30/23 04/30/23 04/30/23 Range/Units 17:26 17:26 17:26 WBC 8.5 (3.8-10.6) k/uL RBC 4.17 (3.80-5.40) m/uL Hgb 8.2 L (11.4-16.0) gm/dL Hct 27.5 L (34.0-46.0) % MCV 65.9 L (80.0-100.0) fL MCH 19.5 L (25.0-35.0) pg MCHC 29.7 L (31.0-37.0) g/dL RDW 18.1 H (11.5-15.5) % Plt Count 312 (150-450) k/uL MPV 7.0 Neutrophils % 64 % Lymphocytes % 26 % Monocytes % 5 % Eosinophils % 2 % Basophils % 0 % Neutrophils # 5.4 (1.3-7.7) k/uL Lymphocytes # 2.2 (1.0-4.8) k/uL Monocytes # 0.4 (0-1.0) k/uL Eosinophils # 0.1 (0-0.7) k/uL Basophils # 0.0 (0-0.2) k/uL Hypochromasia Marked Poikilocytosis Slight Anisocytosis Slight Microcytosis Marked PT 10.5 (10.0-12.5) sec INR 0.9 (<1.2) APTT 25.0 (22.0-30.0) sec Sodium 135 L (137-145) mmol/L Potassium 4.2 (3.5-5.1) mmol/L Chloride 99 (98-107) mmol/L Carbon Dioxide 22 (22-30) mmol/L Anion Gap 14 mmol/L BUN 28 H (7-17) mg/dL Creatinine 0.49 L (0.52-1.04) mg/dL Est GFR (CKD-EPI)AfAm >90 (>60 ml/min/1.73 sqM) Est GFR (CKD-EPI)NonAf 87 (>60 ml/min/1.73 sqM) Glucose 139 H (74-99) mg/dL Lactic Ac Sepsis Rflx Plasma Lactic Acid Calvin (0.7-2.0) mmol/L Calcium 9.2 (8.4-10.2) mg/dL Magnesium 1.4 L (1.6-2.3) mg/dL Total Bilirubin 0.3 (0.2-1.3) mg/dL AST 18 (14-36) U/L ALT 16 (4-34) U/L Alkaline Phosphatase 94 (38-126) U/L Troponin I (0.000-0.034) ng/mL Total Protein 6.1 L (6.3-8.2) g/dL Albumin 3.6 (3.5-5.0) g/dL Stool Occult Blood (Negative) 04/30/23 04/30/23 04/30/23 Range/Units 17:26 17:26 18:25 WBC (3.8-10.6) k/uL RBC (3.80-5.40) m/uL Hgb (11.4-16.0) gm/dL Hct (34.0-46.0) % MCV (80.0-100.0) fL MCH (25.0-35.0) pg MCHC (31.0-37.0) g/dL RDW (11.5-15.5) % Plt Count (150-450) k/uL MPV Neutrophils % % Lymphocytes % % Monocytes % % Eosinophils % % Basophils % % Neutrophils # (1.3-7.7) k/uL Lymphocytes # (1.0-4.8) k/uL Monocytes # (0-1.0) k/uL Eosinophils # (0-0.7) k/uL Basophils # (0-0.2) k/uL Hypochromasia Poikilocytosis Anisocytosis Microcytosis PT (10.0-12.5) sec INR (<1.2) APTT (22.0-30.0) sec Sodium (137-145) mmol/L Potassium (3.5-5.1) mmol/L Chloride (98-107) mmol/L Carbon Dioxide (22-30) mmol/L Anion Gap mmol/L BUN (7-17) mg/dL Creatinine (0.52-1.04) mg/dL Est GFR (CKD-EPI)AfAm (>60 ml/min/1.73 sqM) Est GFR (CKD-EPI)NonAf (>60 ml/min/1.73 sqM) Glucose (74-99) mg/dL Lactic Ac Sepsis Rflx Y Plasma Lactic Acid Calvin 3.5 H* (0.7-2.0) mmol/L Calcium (8.4-10.2) mg/dL Magnesium (1.6-2.3) mg/dL Total Bilirubin (0.2-1.3) mg/dL AST (14-36) U/L ALT (4-34) U/L Alkaline Phosphatase (38-126) U/L Troponin I <0.012 (0.000-0.034) ng/mL Total Protein (6.3-8.2) g/dL Albumin (3.5-5.0) g/dL Stool Occult Blood (Negative) 04/30/23 04/30/23 Range/Units 21:16 21:16 WBC (3.8-10.6) k/uL RBC (3.80-5.40) m/uL Hgb (11.4-16.0) gm/dL Hct (34.0-46.0) % MCV (80.0-100.0) fL MCH (25.0-35.0) pg MCHC (31.0-37.0) g/dL RDW (11.5-15.5) % Plt Count (150-450) k/uL MPV Neutrophils % % Lymphocytes % % Monocytes % % Eosinophils % % Basophils % % Neutrophils # (1.3-7.7) k/uL Lymphocytes # (1.0-4.8) k/uL Monocytes # (0-1.0) k/uL Eosinophils # (0-0.7) k/uL Basophils # (0-0.2) k/uL Hypochromasia Poikilocytosis Anisocytosis Microcytosis PT (10.0-12.5) sec INR (<1.2) APTT (22.0-30.0) sec Sodium (137-145) mmol/L Potassium (3.5-5.1) mmol/L Chloride (98-107) mmol/L Carbon Dioxide (22-30) mmol/L Anion Gap mmol/L BUN (7-17) mg/dL Creatinine (0.52-1.04) mg/dL Est GFR (CKD-EPI)AfAm (>60 ml/min/1.73 sqM) Est GFR (CKD-EPI)NonAf (>60 ml/min/1.73 sqM) Glucose (74-99) mg/dL Lactic Ac Sepsis Rflx Plasma Lactic Acid Calvin 1.2 (0.7-2.0) mmol/L Calcium (8.4-10.2) mg/dL Magnesium (1.6-2.3) mg/dL Total Bilirubin (0.2-1.3) mg/dL AST (14-36) U/L ALT (4-34) U/L Alkaline Phosphatase (38-126) U/L Troponin I (0.000-0.034) ng/mL Total Protein (6.3-8.2) g/dL Albumin (3.5-5.0) g/dL Stool Occult Blood Positive H (Negative) Disposition Clinical Impression: GI bleed Disposition: OTHER INSTITUTION NOT DEFINED Condition: Stable Referrals: Tristin Brennan MD [Primary Care Provider] - 1-2 days - Out of Hospital Transfer - Req. Specs Out of Hospital Transfer - Requested Specifics: Other Emergency Center ([facility])
[2023-04-30] MEDS ORDERED: HYDROmorphone 1 MG/ML 1 ML SYRINGE IVP STA (23:15)
[2023-04-30 23:30] VITALS: BP 148/68; PULSE 78; TEMP 98.1
== END 2023-04-30 23:26 | disposition other institution (70) ==
LOC: EC 16:33
DX: K92.2 Gastrointestinal hemorrhage, unspecified (principal); I10 Essential (primary) hypertension; E11.9 Type 2 diabetes mellitus without complications; E07.9 Disorder of thyroid, unspecified; Z79.84 Long term (current) use of oral hypoglycemic drugs; Z79.890 Hormone replacement therapy; Z79.899 Other long term (current) drug therapy
CPT/HCPCS: 36415; 80053; 83605; 83735; 84484; 85025; 85610; 85730; 82272; 74177; 99285; 96374; 96375 ×3; J2270; J2360; J1170; C9113; Q9967

== ENCOUNTER 2023-07-23 12:45 | Emergency (ER) | payer MEDICARE ==
[2023-07-23 13:01] VITALS: RESP 18; TEMP 97.5
--- NOTE | 2023-07-23 13:39 | ED ---
GI Bleed HPI - General Chief complaint: GI Bleed Stated complaint: Cough, Black Stool Time Seen by Provider: 07/23/23 13:37 Source: patient, family, RN notes reviewed Mode of arrival: wheelchair Limitations: no limitations - History of Present Illness Initial comments: Patient is an 88-year-old female presented to ER with chief complaint of dark tarry stools and weakness. Family is providing HPI and past medical history. They state for the past week she has been having increase in weakness. Daughter reports dark tarry stool started on 07/15/23, and have just increased in darkness. Patient also was endorsing diarrhea. Daughter also reports on Tuesday patient started to experience a cough and chills. Denies any known fevers. Daughter reports last night patient seemed to have difficulty catching her breath after a coughing episode. Patient seen by outpatient DUST OPERATOR today and was told to present to ER for further evaluation. Patient previously on Eliquis for TIA stopped taking Eliquis about 2 months ago. Patient has a history of di verticulitis. Patient denies any current headache, chest pain, shortness of breath, abdominal pain, urinary complaints or peripheral edema. - Related Data Home Medications Medication Instructions Recorded Confirmed Apixaban [Eliquis] 5 mg PO BID 04/24/22 04/30/23 Cyanocobalamin (Vitamin B-12) 1,000 mcg PO HS@199904/24/22 04/30/23 [Vitamin B-12] Mirabegron [Myrbetriq] 50 mg PO DAILY 04/24/22 04/30/23 Atorvastatin [Lipitor] 40 mg PO HS@199910/13/22 04/30/23 Levothyroxine(Unknown Dose) 1 tab PO DAILY 04/30/23 04/30/23 metFORMIN HCL 1,000 mg PO BID-W/MEALS 04/30/23 04/30/23 Previous Rx's Medication Instructions Recorded Magnesium Oxide [Mag-Ox] 400 mg PO BID #20 tab 01/26/23 PARoxetine [Paxil] 10 mg PO DAILY #30 tab 01/26/23 Aspirin 81 mg PO DAILY tab 03/18/23 Famotidine [Pepcid] 20 mg PO BID tab 03/18/23 lisinopriL [Zestril] 20 mg PO BID tab 03/18/23 Metoprolol Tartrate [Lopressor] 75 mg PO BID tab 03/21/23 Sulfamethox-Tmp 800-160Mg [Bactrim 1 each PO Q12HR 7 Days #14 tab 07/23/23 Ds] Allergies Allergy/AdvReac Type Severity Reaction Status Date / Time shellfish derived [Shellfish] Allergy Rash/Hives Verified 07/23/23 12:53 Review of Systems ROS Statement: Those systems with pertinent positive or pertinent negative responses have been documented in the HPI. ROS Other: All systems not noted in ROS Statement are negative. Past Medical History Past Medical History: CVA/TIA, Diabetes Mellitus, GI Bleed, Hypertension, Thyroid Disorder History of Any Multi-Drug Resistant Organisms: None Reported Past Surgical History: No Surgical Hx Reported Past Anesthesia/Blood Transfusion Reactions: No Reported Reaction Past Psychological History: No Psychological Hx Reported Smoking Status: Never smoker Past Alcohol Use History: None Reported Past Drug Use History: None Reported General Exam Limitations: no limitations General appearance: alert, in no apparent distress Head exam: Present: atraumatic, normocephalic, normal inspection Eye exam: Present: normal appearance, PERRL, EOMI. Absent: scleral icterus, conjunctival injection, periorbital swelling ENT exam: Present: normal exam, normal oropharynx, mucous membranes moist, TM's normal bilaterally Respiratory exam: Present: normal lung sounds bilaterally. Absent: respiratory distress, wheezes, rales, rhonchi, stridor Cardiovascular Exam: Present: regular rate, normal rhythm, normal heart sounds. Absent: systolic murmur, diastolic murmur, rubs, gallop, clicks GI/Abdominal exam: Present: soft, normal bowel sounds. Absent: distended, tenderness, guarding, rebound, rigid Rectal exam: Present: normal inspection, normal rectal tone, black stool Neurological exam: Present: alert, oriented X3, CN II-XII intact Psychiatric exam: Present: normal affect, normal mood Skin exam: Present: warm, dry, intact, normal color. Absent: rash Course Vital Signs 07/23/23 07/23/23 12:49 16:13 Temperature 97.5 F L Pulse Rate 80 87 Respiratory 18 18 Rate Blood Pressure 165/95 183/87 O2 Sat by Pulse 96 97 Oximetry Medical Decision Making - Medical Decision Making Was pt. sent in by a medical professional or institution (, PA, DUST OPERATOR, urgent care, hospital, or [facility]...) When possible be specific @ -No Did you speak to anyone other than the patient for history (EMS, parent, family, police, friend...)? What history was obtained from this source @ -Daughter providing most of HPI and past medical history Did you review nursing and triage notes (agree or disagree)? Why? @ -I reviewed and agree with nursing and triage notes Were old charts reviewed (outside hosp., previous admission, EMS record, old EKG, old radiological studies, urgent care reports/EKG's, [facility] records)? Report findings @ -No old charts were reviewed Differential Diagnosis (chest pain, altered mental status, abdominal pain women, abdominal pain men, vaginal bleeding, weakness, fever, dyspnea, syncope, headache, dizziness, GI bleed, back pain, seizure, CVA, palpatations, mental health, musculoskeletal)? @ -Differential GI Bleed: Esophageal varices, aortoenteric fistula, Shanna-Juan, gastritis, peptic ulcer disease, diverticulosis, inflammatory bowel disease, hemorrhoids, fissure, colitis, malignancy, Meckels diverticulum, this is not meant to be an all- inclusive list. EKG interpreted by me (3pts min.). @ -As above X-rays interpreted by me (1pt min.). @ -Chest x-ray interpreted by me shows no acute cardiopulmonary process. CT interpreted by me (1pt min.). @ -CT abdomen pelvis shows colonic diverticulosis without evidence of gastrointestinal hemorrhage. No obvious acute process. U/S interpreted by me (1pt. min.). @ -None done What testing was considered but not performed or refused? (CT, X-rays, U/S, labs)? Why? @ -None What meds were considered but not given or refused? Why? @ -None Did you discuss the management of the patient with other professionals (professionals i.e. Dr., PA, DUST OPERATOR, lab, RT, psych nurse, web content & social media manager, felt hat mellowing machine operator, teacher, chief fundraising officer, disease case manager rn)? Give summary @ -No Was smoking cessation discussed for >3mins.? @ -No Was critical care preformed (if so, how long)? @ -No Were there social determinants of health that impacted care today? How? (Homelessness, low income, unemployed, alcoholism, drug addiction, transportat ion, low edu. Level, literacy, decrease access to med. care, shelter, rehab)? @ -No Was there de-escalation of care discussed even if they declined (Discuss DNR or withdrawal of care, Hospice)? DNR status @ -No What co-morbidities impacted this encounter? (DM, HTN, Smoking, COPD, CAD, Cancer, CVA, ARF, Chemo, Hep., AIDS, mental health diagnosis, sleep apnea, morbid obesity)? @ -Thyroid disorder, hypertension, history of GI bleed, diabetes mellitus Was patient admitted / discharged? Hospital course, mention meds given and route, prescriptions, significant lab abnormalities, going to OR and other pertinent info. @ -Discharge. Patient is an 88-year-old female presenting to the ER with a chief complaint of black tarry stool and weakness. History and physical exam are completed. Vitals stable. Patient no signs of acute distress. Nontoxic- appearing. Resting comfortably in exam room. Mild abdominal pain on palpation. Rectal exam completed and chaperoned by Kimberly Pabon RN. Rectal exam significant for normal tone and dark stool. Labs obtained significant for hemoglobin 11.3 has improved from 9.5 on 05-09-2023. Magnesium 1.4. Otherwise labs unimpressive. Urine significant for positive nitrates. Stool occult negative. Influenza, RSV, COVID-negative. EKG without signs of infarct or ischemia. Imaging performed in the ER showed no acute process. Results discussed with patient and family, at bedside. All questions answered. Patient will receive IV Rocephin and p.o. magnesium prior to discharge. Return parameters were discussed. Patient will be discharged stable condition with follow-up to PCP. Family expressed understanding and agreement with care plan. Case discussed with Dr. Cruz, ER attending. Undiagnosed new problem with uncertain prognosis? @ -No Drug Therapy requiring intensive monitoring for toxicity (Heparin, Nitro, Insulin, Cardizem)? @ -No Were any procedures done? @ -No Diagnosis/symptom? @ -Urinary tract infection/hypomagnesemia Acute, or Chronic, or Acute on Chronic? @ -Acute Uncomplicated (without systemic symptoms) or Complicated (systemic symptoms)? @ -Uncomplicated Side effects of treatment? @ -No Exacerbation, Progression, or Severe Exacerbation? @ -No Poses a threat to life or bodily function? How? (Chest pain, [place], [place], pneumonia, PE, COPD, DKA, ARF, appy, cholecystitis, CVA, Diverticulitis, Homicidal, Suicidal, threat to staff... and all critical care pts) @ -No - Lab Data Result diagrams: 07/23/23 13:55 07/23/23 13:55 Lab Results 07/23/23 07/23/23 07/23/23 Range/Units 13:50 13:55 13:55 WBC 8.1 (3.8-10.6) k/uL RBC 4.85 (3.80-5.40) m/uL Hgb 11.3 L (11.4-16.0) gm/dL Hct 35.8 (34.0-46.0) % MCV 73.9 L (80.0-100.0) fL MCH 23.3 L (25.0-35.0) pg MCHC 31.6 (31.0-37.0) g/dL RDW 19.2 H (11.5-15.5) % Plt Count 372 (150-450) k/uL MPV 7.8 Neutrophils % 63 % Lymphocytes % 25 % Monocytes % 8 % Eosinophils % 1 % Basophils % 1 % Neutrophils # 5.1 (1.3-7.7) k/uL Lymphocytes # 2.1 (1.0-4.8) k/uL Monocytes # 0.7 (0-1.0) k/uL Eosinophils # 0.1 (0-0.7) k/uL Basophils # 0.1 (0-0.2) k/uL Hypochromasia Slight Anisocytosis Slight Microcytosis Moderate PT 10.6 (10.0-12.5) sec INR 1.0 (<1.2) APTT 26.3 (22.0-30.0) sec Sodium (137-145) mmol/L Potassium (3.5-5.1) mmol/L Chloride (98-107) mmol/L Carbon Dioxide (22-30) mmol/L Anion Gap mmol/L BUN (7-17) mg/dL Creatinine (0.52-1.04) mg/dL Est GFR (CKD-EPI)AfAm (>60 ml/min/1.73 sqM) Est GFR (CKD-EPI)NonAf (>60 ml/min/1.73 sqM) Glucose (74-99) mg/dL Plasma Lactic Acid Calvin (0.7-2.0) mmol/L Calcium (8.4-10.2) mg/dL Phosphorus (2.5-4.5) mg/dL Magnesium (1.6-2.3) mg/dL Total Bilirubin (0.2-1.3) mg/dL AST (14-36) U/L ALT (4-34) U/L Alkaline Phosphatase (38-126) U/L Total Protein (6.3-8.2) g/dL Albumin (3.5-5.0) g/dL Amylase (30-110) U/L Lipase (23-300) U/L Urine Color Urine Appearance (Clear) Urine pH (5.0-8.0) Ur Specific [place] (1.001-1.035) Urine Protein (Negative) Urine Glucose (UA) (Negative) Urine Ketones (Negative) Urine Blood (Negative) Urine Nitrite (Negative) Urine Bilirubin (Negative) Urine Urobilinogen (<2.0) mg/dL Ur Leukocyte Esterase (Negative) Urine RBC (0-5) /hpf Urine WBC (0-5) /hpf Ur Squamous Epith Cells (0-4) /hpf Urine Mucus (None) /hpf Stool Occult Blood (Negative) Influenza Type A (PCR) (Not Detectd) Influenza Type B (PCR) (Not Detectd) RSV (PCR) (Not Detectd) SARS-CoV-2 (PCR) (Not Detectd) Blood Type O Positive Blood Type Recheck O Pos Bld Type Recheck Status No Antibody Screen NEGATIVE Spec Expiration Date 07/26/2023 - 234907/23/23 07/23/23 07/23/23 Range/Units 13:55 13:55 13:55 WBC (3.8-10.6) k/uL RBC (3.80-5.40) m/uL Hgb (11.4-16.0) gm/dL Hct (34.0-46.0) % MCV (80.0-100.0) fL MCH (25.0-35.0) pg MCHC (31.0-37.0) g/dL RDW (11.5-15.5) % Plt Count (150-450) k/uL MPV Neutrophils % % Lymphocytes % % Monocytes % % Eosinophils % % Basophils % % Neutrophils # (1.3-7.7) k/uL Lymphocytes # (1.0-4.8) k/uL Monocytes # (0-1.0) k/uL Eosinophils # (0-0.7) k/uL Basophils # (0-0.2) k/uL Hypochromasia Anisocytosis Microcytosis PT (10.0-12.5) sec INR (<1.2) APTT (22.0-30.0) sec Sodium 133 L (137-145) mmol/L Potassium 4.0 (3.5-5.1) mmol/L Chloride 97 L (98-107) mmol/L Carbon Dioxide 27 (22-30) mmol/L Anion Gap 9 mmol/L BUN 11 (7-17) mg/dL Creatinine 0.40 L (0.52-1.04) mg/dL Est GFR (CKD-EPI)AfAm >90 (>60 ml/min/1.73 sqM) Est GFR (CKD-EPI)NonAf >90 (>60 ml/min/1.73 sqM) Glucose 108 H (74-99) mg/dL Plasma Lactic Acid Calvin 1.0 (0.7-2.0) mmol/L Calcium 9.4 (8.4-10.2) mg/dL Phosphorus 4.3 (2.5-4.5) mg/dL Magnesium 1.4 L (1.6-2.3) mg/dL Total Bilirubin 0.4 (0.2-1.3) mg/dL AST 16 (14-36) U/L ALT 10 (4-34) U/L Alkaline Phosphatase 99 (38-126) U/L Total Protein 6.0 L (6.3-8.2) g/dL Albumin 3.4 L (3.5-5.0) g/dL Amylase 40 (30-110) U/L Lipase 41 (23-300) U/L Urine Color Urine Appearance (Clear) Urine pH (5.0-8.0) Ur Specific [place] (1.001-1.035) Urine Protein (Negative) Urine Glucose (UA) (Negative) Urine Ketones (Negative) Urine Blood (Negative) Urine Nitrite (Negative) Urine Bilirubin (Negative) Urine Urobilinogen (<2.0) mg/dL Ur Leukocyte Esterase (Negative) Urine RBC (0-5) /hpf Urine WBC (0-5) /hpf Ur Squamous Epith Cells (0-4) /hpf Urine Mucus (None) /hpf Stool Occult Blood Negative (Negative) Influenza Type A (PCR) (Not Detectd) Influenza Type B (PCR) (Not Detectd) RSV (PCR) (Not Detectd) SARS-CoV-2 (PCR) (Not Detectd) Blood Type Blood Type Recheck Bld Type Recheck Status Antibody Screen Spec Expiration Date 07/23/23 07/23/23 Range/Units 14:07 14:07 WBC (3.8-10.6) k/uL RBC (3.80-5.40) m/uL Hgb (11.4-16.0) gm/dL Hct (34.0-46.0) % MCV (80.0-100.0) fL MCH (25.0-35.0) pg MCHC (31.0-37.0) g/dL RDW (11.5-15.5) % Plt Count (150-450) k/uL MPV Neutrophils % % Lymphocytes % % Monocytes % % Eosinophils % % Basophils % % Neutrophils # (1.3-7.7) k/uL Lymphocytes # (1.0-4.8) k/uL Monocytes # (0-1.0) k/uL Eosinophils # (0-0.7) k/uL Basophils # (0-0.2) k/uL Hypochromasia Anisocytosis Microcytosis PT (10.0-12.5) sec INR (<1.2) APTT (22.0-30.0) sec Sodium (137-145) mmol/L Potassium (3.5-5.1) mmol/L Chloride (98-107) mmol/L Carbon Dioxide (22-30) mmol/L Anion Gap mmol/L BUN (7-17) mg/dL Creatinine (0.52-1.04) mg/dL Est GFR (CKD-EPI)AfAm (>60 ml/min/1.73 sqM) Est GFR (CKD-EPI)NonAf (>60 ml/min/1.73 sqM) Glucose (74-99) mg/dL Plasma Lactic Acid Calvin (0.7-2.0) mmol/L Calcium (8.4-10.2) mg/dL Phosphorus (2.5-4.5) mg/dL Magnesium (1.6-2.3) mg/dL Total Bilirubin (0.2-1.3) mg/dL AST (14-36) U/L ALT (4-34) U/L Alkaline Phosphatase (38-126) U/L Total Protein (6.3-8.2) g/dL Albumin (3.5-5.0) g/dL Amylase (30-110) U/L Lipase (23-300) U/L Urine Color Light Yellow Urine Appearance Cloudy H (Clear) Urine pH 7.0 (5.0-8.0) Ur Specific [place] 1.014 (1.001-1.035) Urine Protein Negative (Negative) Urine Glucose (UA) Negative (Negative) Urine Ketones Negative (Negative) Urine Blood Negative (Negative) Urine Nitrite Positive H (Negative) Urine Bilirubin Negative (Negative) Urine Urobilinogen <2.0 (<2.0) mg/dL Ur Leukocyte Esterase Negative (Negative) Urine RBC 1 (0-5) /hpf Urine WBC 2 (0-5) /hpf Ur Squamous Epith Cells 1 (0-4) /hpf Urine Mucus Rare H (None) /hpf Stool Occult Blood (Negative) Influenza Type A (PCR) Not Detected (Not Detectd) Influenza Type B (PCR) Not Detected (Not Detectd) RSV (PCR) Not Detected (Not Detectd) SARS-CoV-2 (PCR) Not Detected (Not Detectd) Blood Type Blood Type Recheck Bld Type Recheck Status Antibody Screen Spec Expiration Date - EKG Data -: EKG Interpreted by Me EKG Comments: EKG taken at 14: 34 shows normal sinus rhythm with right bundle branch block. Ventricular rate 87, VT interval 173, QRS duration 162, QT/QTc 439/483. - Radiology Data Radiology results: report reviewed, image reviewed Disposition Clinical Impression: Hypomagnesemia, UTI (urinary tract infection) Disposition: HOME SELF-CARE Condition: Good Instructions (If sedation given, give patient instructions): Urinary Tract Infection in Older Adults (ED) Additional Instructions: Please complete full course of antibiotics. Follow-up with PCP next 1-2 days. Return to the ER for any new or worsening symptoms. Prescriptions: Sulfamethox-Tmp 800-160Mg [Bactrim Ds] 1 each PO Q12HR 7 Days #14 tab Is patient prescribed a controlled substance at d/c from ED?: No Referrals: Tristin Brennan MD [Primary Care Provider] - 1-2 days Time of Disposition: 15:40
[2023-07-23 14:26] LABS: Partial Thromboplastin Time 26.3 sec (22.0-30.0); Prothrombin Time 10.6 sec (10.0-12.5)
[2023-07-23 14:29] LABS: ALT 10 U/L (4-34); AST 16 U/L (14-36); African American GFR (CKD) >90 (>60 ml/min/1.73 sqM); Albumin 3.4 g/dL (3.5-5.0); Alkaline Phosphatase 99 U/L (38-126); Amylase 40 U/L (30-110); Anion Gap 9 mmol/L; Blood Urea Nitrogen 11 mg/dL (7-17); Calcium 9.4 mg/dL (8.4-10.2); Carbon Dioxide 27 mmol/L (22-30); Chloride 97 mmol/L (98-107); Glucose 108 mg/dL (74-99); Lipase 41 U/L (23-300); Magnesium 1.4 mg/dL (1.6-2.3); Non-African American GFR(CKD) >90 (>60 ml/min/1.73 sqM); Phosphorus 4.3 mg/dL (2.5-4.5); Sodium 133 mmol/L (137-145); Total Bilirubin 0.4 mg/dL (0.2-1.3)
--- NOTE | 2023-07-23 14:57 | XR ---
EXAMINATION TYPE: XR chest 2V DATE OF EXAM: 07/23/2023 2:54 PM CLINICAL INDICATION:Female, 88 years old with history of weakness; [facility] COMPARISON: Chest radiographs from TECHNIQUE: XR chest 2V Frontal and lateral views of the chest. FINDINGS: Lungs/Pleura: Prominent interstitial lung markings are seen scattered throughout the lungs with and i ncreased lucency of the lung apices. No evidence of focal consolidation, pneumothorax or pleural effu flaquito. Pulmonary vascularity: Unremarkable. Heart/mediastinum: Cardiomediastinal silhouette is unremarkable. Musculoskeletal: No acute osseous pathology. IMPRESSION: 1. No acute cardiopulmonary disease process. 2. COPD changes.
[2023-07-23 14:59] LABS: Anisocytosis Slight; Basophils # (A) 0.1 k/uL (0-0.2); Basophils % (A) 1 %; Eosinophils # (A) 0.1 k/uL (0-0.7); Eosinophils % (A) 1 %; HCT 35.8 % (34.0-46.0); HGB 11.3 gm/dL (11.4-16.0); Hypochromasia Slight; Lymphocytes # (A) 2.1 k/uL (1.0-4.8); Lymphocytes % (A) 25 %; MCH 23.3 pg (25.0-35.0); MCHC 31.6 g/dL (31.0-37.0); MCV 73.9 fL (80.0-100.0); Mean Platelet Volume 7.8; Microcytosis Moderate; Monocytes # (A) 0.7 k/uL (0-1.0); Monocytes % (A) 8 %; Neutrophils # (A) 5.1 k/uL (1.3-7.7); Neutrophils % (A) 63 %; Platelet Count 372 k/uL (150-450); RBC 4.85 m/uL (3.80-5.40); RDW 19.2 % (11.5-15.5); WBC 8.1 k/uL (3.8-10.6)
[2023-07-23 14:59] LABS: Appearance,Urine Cloudy (Clear); Bilirubin,Urine Negative (Negative); Blood,Urine Negative (Negative); Color,Urine Light Yellow; Glucose,Urine (UA) Negative (Negative); Ketones,Urine Negative (Negative); Leukocyte Esterase,Urine Negative (Negative); Mucus,Urine Rare /hpf; Nitrite,Urine Positive (Negative); Protein,Urine Negative (Negative); RBC,Urine 1 /hpf (0-5); Specific Gravity,Urine 1.014 (1.001-1.035); Squamous Epithelial Cell,Urine 1 /hpf (0-4); Urobilinogen,Urine <2.0 mg/dL (<2.0); WBC,Urine 2 /hpf (0-5)
--- NOTE | 2023-07-23 15:16 | CT ---
EXAMINATION TYPE: CT abdomen pelvis w con CT DLP: 766 mGycm, Automated exposure control for dose reduction was used. DATE OF EXAM: 07/23/2023 2:55 PM COMPARISON: 2 04/30/2023. CLINICAL INDICATION:Female, 88 years old with history of black stool/weakness; black stool, weakness TECHNIQUE: Axial CT abdomen pelvis w con;Sagittal and coronal reformats were created on a separate w orkstation. Contrast used:100 mL of Isovue 300 with IV Contrast, (none if empty) Oral contrast used: without Oral Contrast (none if empty) FINDINGS: LOWER CHEST: Unremarkable ABDOMEN LIVER: Unremarkable GALLBLADDER AND BILE DUCTS: Gallbladder is surgically absent with mild intrahepatic and extra hepatic biliary dilatation likely physiologic and a postcholecystectomy change. No evidence of choledocholit hiasis. PANCREAS: Unremarkable. SPLEEN: Unremarkable. ADRENAL GLANDS: Unremarkable. KIDNEYS AND URETERS: No evidence of hydronephrosis or renal calculus. The ureters are unremarkable. PELVIS BLADDER: Unremarkable REPRODUCTIVE: Pessary ring is present. ABDOMEN & PELVIS STOMACH AND BOWEL: No evidence of bowel obstruction. Scattered colonic diverticula. No evidence for g astrointestinal hemorrhage on this limited exam. PERITONEUM/RETROPERITONEUM: No evidence of pneumoperitoneum or free fluid. VASCULATURE: Mild atherosclerotic calcifications are present throughout the abdominal aorta and its b ranches. No evidence of aortic aneurysm. MUSCULOSKELETAL: No acute osseous abnormalities. Mild disc degeneration changes are present throughou t the thoracolumbar spine. LYMPH NODES: No gross evidence for lymphadenopathy. SOFT TISSUE/ABDOMINAL WALL: Unremarkable IMPRESSION: Colonic diverticulosis without evidence for gastrointestinal hemorrhage. No obvious acute process.
[2023-07-23] MEDS: MAGNESIUM OXIDE 400 MG TAB PO STA (16:00)
[2023-07-23] MEDS: cefTRIAXone IN SWFI 1,000 MG/10 ML SYRINGE IVP STA (16:05)
[2023-07-23 16:20] VITALS: BP 183/87; PULSE 87
== END 2023-07-23 16:15 | disposition home or self-care (01) ==
LOC: EC 12:45
DX: E83.42 Hypomagnesemia (principal); N39.0 Urinary tract infection, site not specified; I45.10 Unspecified right bundle-branch block; E11.9 Type 2 diabetes mellitus without complications; I10 Essential (primary) hypertension; E07.9 Disorder of thyroid, unspecified; Z20.822 Contact with and (suspected) exposure to COVID-19; Z79.890 Hormone replacement therapy; Z79.84 Long term (current) use of oral hypoglycemic drugs; Z79.01 Long term (current) use of anticoagulants; Z79.899 Other long term (current) drug therapy; Z86.73 Personal history of transient ischemic attack (TIA), and cerebral infarction without residual deficits; Z91.013 Allergy to seafood
CPT/HCPCS: 99285; 96374; 36415; 93005; 86900; 86901; 80053; 82150; 83605; 83690; 83735; 84100; 85025; 85610; 85730; 86850; 82272; 81001; 87636; 71046; 74177; J0696; Q9967

== ENCOUNTER 2023-10-26 16:51 | Inpatient (IN) | payer MEDICARE ==
--- NOTE | 2023-10-26 17:23 | ED ---
Weakness HPI - General Chief complaint: Weakness Stated complaint: Failure To Thrive Time Seen by Provider: 10/26/23 17:07 Source: EMS, RN notes reviewed, old records reviewed Mode of arrival: EMS Limitations: no limitations - History of Present Illness Initial comments: This is a 88-year-old female to ER for severe weakness and debility poor historian secondary to clinical condition, patient is having decreased ability to increase debility decreased activity likely need for hospice placement MD Complaint: generalized weakness, lack of energy, difficulty walking Location: generalized Severity: severe Severity scale (1-10): 9 Consistency: constant Improves with: none, evening Context: history of similar Associated Symptoms: denies other symptoms - Related Data Home Medications Medication Instructions Recorded Confirmed Mirabegron [Myrbetriq] 50 mg PO DAILY@0700 04/24/22 10/26/23 ALPRAZolam [Xanax] 0.125 - 0.25 mg PO HS PRN 10/26/23 10/26/23 Acetaminophen Tab [Tylenol] 650 mg PO Q4H PRN MDD 10 tabs 10/26/23 10/26/23 Aspirin 81 mg PO DAILY@0710/26/23 10/26/23 Cyanocobalamin [Vitamin B-12] 500 mcg PO DAILY@19010/26/23 10/26/23 Diclofenac Sodium Gel [Voltaren 1% 2 - 4 gm TOPICAL QID PRN MDD 32 10/26/23 10/26/23 Gel] grams Famotidine [Pepcid] 20 mg PO DAILY@0710/26/23 10/26/23 Levothyroxine Sodium [Synthroid] 50 mcg PO DAILY@0710/26/23 10/26/23 Loperamide HCl/Simethicone 1 - 2 tab PO TID PRN MDD 4 tabs 10/26/23 10/26/23 [Loperamide-Simeth 2-125 mg Tab] PARoxetine [Paxil] 10 mg PO DAILY@0710/26/23 10/26/23 haloperidoL [Haldol] 1 mg PO BID PRN 10/26/23 10/26/23 lisinopriL [Zestril] 20 mg PO BID@0700,1900 10/26/23 10/26/23 Previous Rx's Medication Instructions Recorded Magnesium Oxide [Mag-Ox] 400 mg PO DAILY #0 05/31/24 Metoprolol Tartrate [Lopressor] 75 mg PO BID #1 tablet 10/28/23 Allergies Allergy/AdvReac Type Severity Reaction Status Date / Time shellfish derived [Shellfish] Allergy Rash/Hives Verified 10/26/23 19:38 Review of Systems ROS Statement: Those systems with pertinent positive or pertinent negative responses have been documented in the HPI. ROS Other: All systems not noted in ROS Statement are negative. Past Medical History Past Medical History: CVA/TIA, Diabetes Mellitus, GI Bleed, Hypertension, Thyroid Disorder Additional Past Medical History / Comment(s): metabolic encephalopathy History of Any Multi-Drug Resistant Organisms: None Reported Past Surgical History: No Surgical Hx Reported Past Anesthesia/Blood Transfusion Reactions: No Reported Reaction Past Psychological History: No Psychological Hx Reported Smoking Status: Never smoker Past Alcohol Use History: None Reported Past Drug Use History: None Reported General Exam Limitations: no limitations General appearance: alert, in no apparent distress, anxious Head exam: Present: atraumatic, normocephalic, normal inspection Eye exam: Present: normal appearance, PERRL, EOMI. Absent: scleral icterus, conjunctival injection, periorbital swelling ENT exam: Present: normal exam, mucous membranes moist Neck exam: Present: normal inspection. Absent: tenderness, meningismus, lymphadenopathy Respiratory exam: Present: normal lung sounds bilaterally. Absent: respiratory distress, wheezes, rales, rhonchi, stridor Cardiovascular Exam: Present: regular rate, normal rhythm, normal heart sounds. Absent: systolic murmur, diastolic murmur, rubs, gallop, clicks GI/Abdominal exam: Present: soft, normal bowel sounds. Absent: distended, tenderness, guarding, rebound, rigid Extremities exam: Present: normal inspection, full ROM, normal capillary refill. Absent: tenderness, pedal edema, joint swelling, calf tenderness Back exam: Present: normal inspection Neurological exam: Present: alert, oriented X3, CN II-XII intact Psychiatric exam: Present: normal affect, normal mood Skin exam: Present: warm, dry, intact, normal color. Absent: rash Course Vital Signs 10/26/23 10/26/23 10/26/23 16:57 18:29 20:43 Temperature 97.9 F Pulse Rate 83 79 96 Respiratory 20 16 18 Rate Blood Pressure 197/93 183/88 206/106 O2 Sat by Pulse 95 95 96 Oximetry 10/26/23 10/26/23 22:09 23:00 Temperature Pulse Rate 94 93 Respiratory 14 19 Rate Blood Pressure 163/86 162/97 O2 Sat by Pulse 94 L 94 L Oximetry - Reevaluation(s) Reevaluation #1: 10/26/23 21:03 Medical records reviewed Reevaluation #2: 10/26/23 21:03 Patient symptoms unchanged Reevaluation #3: 10/26/23 21:03 Patient informed of requested second third Reevaluation #4: Was pt. sent in by a medical professional or institution (, [facility], [employer], urgent care, hospital, or prison...) When possible be specific @ -no Did you speak to anyone other than the patient for history (EMS, parent, family, police, friend...)? What history was obtained from this source @ -no Did you review nursing and triage notes (agree or disagree)? Why? @ -agree Are old charts reviewed (outside hosp., previous admission, EMS record, old EKG, old radiological studies, urgent care reports/EKG's, prison records)? Report findings @ -yes Differential Diagnosis (chest pain, altered mental status, abdominal pain women, abdominal pain men, vaginal bleeding, weakness, fever, dyspnea, syncope, headache, dizziness, GI bleed, back pain, seizure, CVA, palpatations, mental health, musculoskeletal)? @ -prior EKG interpreted by me (3pts min.). @ -yes X-rays interpreted by me (1pt min.). @ -no CT interpreted by me (1pt min.). @ -no U/S interpreted by me (1pt. min.). @ -no What testing was considered but not performed or refused? (CT, X-rays, U/S, labs)? Why? @ -none What meds were considered but not given or refused? Why? @ -none Did you discuss the management of the patient with other professionals (professionals i.e. TOMMY Hale, [employer], lab, RT, psych nurse, high school social science teacher, lines tender, teacher, corporate compliance officer, director case management)? Give summary @ -no Was smoking cessation discussed for >3mins.? @ -no Were there social determinants of health that impacted care today? How? (Homelessness, low income, unemployed, alcoholism, drug addiction, transportation, low edu. Level, literacy, decrease access to med. care, care home, rehab)? @ -none Was there de-escalation of care discussed even if they declined (Discuss DNR or withdrawal of care, Hospice)? DNR status @ -no What co-morbidities impacted this encounter? (DM, HTN, Smoking, COPD, CAD, Cancer, CVA, ARF, Chemo, Hep., AIDS, mental health diagnosis, sleep apnea, morbid obesity)? @ -none Was patient admitted / discharged? Hospital course, mention meds given and route, prescriptions, significant lab abnormalities, going to OR and other pertinent info. @ - 88 female to be admitted for debility failure to thrive, likely need for hospice placement, weakness hypomagnesemis hyper-K with anemia Admitted Was critical care preformed (if so, how long)? @ -no Undiagnosed new problem with uncertain prognosis? @ -no Drug Therapy requiring intensive monitoring for toxicity (Heparin, Nitro, Insulin, Cardizem)? @ -no Were any procedures done? @ -no Diagnosis/symptom? @ -Weakness debility electrolyte abnormalities Acute, or Chronic, or Acute on Chronic? @ -Acute Uncomplicated (without systemic symptoms) or Complicated (systemic symptoms)? @ -Complicated Side effects of treatment? @ -no Exacerbation, Progression, or Severe Exacerbation? @ -exacerbation Poses a threat to life or bodily function? How? (Chest pain, USA, TN, pneumonia, PE, COPD, DKA, ARF, appy, cholecystitis, CVA, Diverticulitis, Homicidal, Suicidal, threat to staff... and all critical care pts) @ -yes yes with extremes of age Reevaluation #5: Differential Weakness: Hypoglycemia, shock, sepsis, hyponatremia, anemia, infection, TN, ETOH, adverse medicine reaction, overdose, stroke, this is not meant to be an all-inclusive list. EKG Findings - EKG Comments: EKG Findings:: EKG sinus 77 WA 131 QRS 155 QTc 460 - EKG Results: EKG: interpreted by TOBY Medical Decision Making - Medical Decision Making 88 female to be admitted for debility failure to thrive, likely need for hospice placement, weakness hypomagnesemis hyper-K with anemia - Lab Data Result diagrams: 10/27/23 05:08 10/27/23 05:08 Lab Results 10/26/23 10/26/23 10/26/23 Range/Units 17:24 17:24 17:24 WBC 9.4 (3.8-10.6) k/uL RBC 4.42 (3.80-5.40) m/uL Hgb 11.0 L (11.4-16.0) gm/dL Hct 33.9 L (34.0-46.0) % MCV 76.7 L (80.0-100.0) fL MCH 25.0 (25.0-35.0) pg MCHC 32.6 (31.0-37.0) g/dL RDW 19.2 H (11.5-15.5) % Plt Count 333 (150-450) k/uL MPV 7.3 Neutrophils % 71 % Lymphocytes % 17 % Monocytes % 9 % Eosinophils % 0 % Basophils % 0 % Neutrophils # 6.7 (1.3-7.7) k/uL Lymphocytes # 1.6 (1.0-4.8) k/uL Monocytes # 0.9 (0-1.0) k/uL Eosinophils # 0.0 (0-0.7) k/uL Basophils # 0.0 (0-0.2) k/uL Anisocytosis Slight Microcytosis Moderate PT 10.3 (10.0-12.5) sec INR 0.9 (<1.2) APTT 25.6 (22.0-30.0) sec Sodium 134 L (137-145) mmol/L Potassium 3.3 L (3.5-5.1) mmol/L Chloride 98 (98-107) mmol/L Carbon Dioxide 30 (22-30) mmol/L Anion Gap 6 mmol/L BUN 19 H (7-17) mg/dL Creatinine 0.49 L (0.52-1.04) mg/dL Est GFR (CKD-EPI)AfAm >90 (>60 ml/min/1.73 sqM) Est GFR (CKD-EPI)NonAf 87 (>60 ml/min/1.73 sqM) Glucose 140 H (74-99) mg/dL Plasma Lactic Acid Calvin (0.7-2.0) mmol/L Calcium 8.9 (8.4-10.2) mg/dL Phosphorus 3.7 (2.5-4.5) mg/dL Magnesium 1.2 L (1.6-2.3) mg/dL Total Bilirubin 0.5 (0.2-1.3) mg/dL AST 33 (14-36) U/L ALT 14 (4-34) U/L Alkaline Phosphatase 94 (38-126) U/L Troponin I (0.000-0.034) ng/mL NT-Pro-B Natriuret Pep 663 pg/mL Total Protein 5.5 L (6.3-8.2) g/dL Albumin 3.0 L (3.5-5.0) g/dL TSH 1.040 (0.465-4.680) mIU/L 10/26/23 10/26/23 Range/Units 17:24 17:24 WBC (3.8-10.6) k/uL RBC (3.80-5.40) m/uL Hgb (11.4-16.0) gm/dL Hct (34.0-46.0) % MCV (80.0-100.0) fL MCH (25.0-35.0) pg MCHC (31.0-37.0) g/dL RDW (11.5-15.5) % Plt Count (150-450) k/uL MPV Neutrophils % % Lymphocytes % % Monocytes % % Eosinophils % % Basophils % % Neutrophils # (1.3-7.7) k/uL Lymphocytes # (1.0-4.8) k/uL Monocytes # (0-1.0) k/uL Eosinophils # (0-0.7) k/uL Basophils # (0-0.2) k/uL Anisocytosis Microcytosis PT (10.0-12.5) sec INR (<1.2) APTT (22.0-30.0) sec Sodium (137-145) mmol/L Potassium (3.5-5.1) mmol/L Chloride (98-107) mmol/L Carbon Dioxide (22-30) mmol/L Anion Gap mmol/L BUN (7-17) mg/dL Creatinine (0.52-1.04) mg/dL Est GFR (CKD-EPI)AfAm (>60 ml/min/1.73 sqM) Est GFR (CKD-EPI)NonAf (>60 ml/min/1.73 sqM) Glucose (74-99) mg/dL Plasma Lactic Acid Calvin 1.3 (0.7-2.0) mmol/L Calcium (8.4-10.2) mg/dL Phosphorus (2.5-4.5) mg/dL Magnesium (1.6-2.3) mg/dL Total Bilirubin (0.2-1.3) mg/dL AST (14-36) U/L ALT (4-34) U/L Alkaline Phosphatase (38-126) U/L Troponin I 0.023 (0.000-0.034) ng/mL NT-Pro-B Natriuret Pep pg/mL Total Protein (6.3-8.2) g/dL Albumin (3.5-5.0) g/dL TSH (0.465-4.680) mIU/L - EKG Data -: EKG Interpreted by Me Disposition Clinical Impression: Dehydration, Altered mental status, Weakness, Anemia, Hypomagnesemia, Hyponatremia Disposition: ADMITTED IP TO THIS HOSP Is patient prescribed a controlled substance at d/c from ED?: No Time of Disposition: 21:00
[2023-10-26] MEDS: SODIUM CHLORIDE 0.9% 1,000 ML IV STA (17:36)
[2023-10-26 17:42] LABS: Anisocytosis Slight; Basophils % (A) 0 %; Eosinophils % (A) 0 %; HCT 33.9 % (34.0-46.0); Lymphocytes # (A) 1.6 k/uL (1.0-4.8); Lymphocytes % (A) 17 %; MCHC 32.6 g/dL (31.0-37.0); MCV 76.7 fL (80.0-100.0); Mean Platelet Volume 7.3; Microcytosis Moderate; Monocytes # (A) 0.9 k/uL (0-1.0); Monocytes % (A) 9 %; Neutrophils # (A) 6.7 k/uL (1.3-7.7); Neutrophils % (A) 71 %; Platelet Count 333 k/uL (150-450); RBC 4.42 m/uL (3.80-5.40); RDW 19.2 % (11.5-15.5); WBC 9.4 k/uL (3.8-10.6)
[2023-10-26 17:43] LABS: ALT 14 U/L (4-34); AST 33 U/L (14-36); African American GFR (CKD) >90 (>60 ml/min/1.73 sqM); Alkaline Phosphatase 94 U/L (38-126); Anion Gap 6 mmol/L; Blood Urea Nitrogen 19 mg/dL (7-17); Calcium 8.9 mg/dL (8.4-10.2); Carbon Dioxide 30 mmol/L (22-30); Chloride 98 mmol/L (98-107); Glucose 140 mg/dL (74-99); Magnesium 1.2 mg/dL (1.6-2.3); Non-African American GFR(CKD) 87 (>60 ml/min/1.73 sqM); Phosphorus 3.7 mg/dL (2.5-4.5); Potassium 3.3 mmol/L (3.5-5.1); Sodium 134 mmol/L (137-145); Total Bilirubin 0.5 mg/dL (0.2-1.3); Total Protein 5.5 g/dL (6.3-8.2)
[2023-10-26 17:49] LABS: INR 0.9 (<1.2); Partial Thromboplastin Time 25.6 sec (22.0-30.0); Prothrombin Time 10.3 sec (10.0-12.5)
[2023-10-26 17:50] LABS: NT-Pro-B-Type Natriuretic Pept 663 pg/mL
[2023-10-26] MEDS ORDERED: ONDANSETRON 4 MG/2 ML VIAL IVP PRN (20:17)
[2023-10-26] MEDS ORDERED: MORPHINE SULFATE 4 MG/ML SYRINGE IV PRN (20:17)
[2023-10-26] MEDS ORDERED: NALOXONE 0.4 MG/ML 1 ML VIAL IV PRN (20:17)
[2023-10-26] MEDS: SODIUM CHLORIDE 0.9% 1,000 ML IV SCH (21:42)
[2023-10-26] MEDS: MAGNESIUM SULFATE-D5W PMX 1 GM in DEXTROSE/WATER 1 100ML.BAG IVPB SCH (21:45)
[2023-10-26] MEDS: POTASSIUM CHLORIDE 20 MEQ in WATER FOR INJECTION 1 100ML.BAG IVPB STA (23:49)
[2023-10-27] MEDS: POTASSIUM CHLORIDE 10 MEQ in WATER FOR INJECTION 1 100ML.BAG IVPB STA (02:28)
[2023-10-27 05:33] LABS: Anisocytosis Slight; Basophils % (A) 0 %; Eosinophils % (A) 0 %; HCT 32.6 % (34.0-46.0); HGB 10.3 gm/dL (11.4-16.0); Lymphocytes # (A) 1.4 k/uL (1.0-4.8); Lymphocytes % (A) 15 %; MCH 24.4 pg (25.0-35.0); MCHC 31.5 g/dL (31.0-37.0); MCV 77.5 fL (80.0-100.0); Microcytosis Slight; Monocytes # (A) 0.7 k/uL (0-1.0); Monocytes % (A) 8 %; Neutrophils # (A) 6.8 k/uL (1.3-7.7); Neutrophils % (A) 75 %; Platelet Count 305 k/uL (150-450); RDW 19.1 % (11.5-15.5); WBC 9.1 k/uL (3.8-10.6)
[2023-10-27 05:54] LABS: ALT 14 U/L (4-34); AST 32 U/L (14-36); African American GFR (CKD) >90 (>60 ml/min/1.73 sqM); Albumin 2.8 g/dL (3.5-5.0); Alkaline Phosphatase 96 U/L (38-126); Anion Gap 7 mmol/L; Blood Urea Nitrogen 13 mg/dL (7-17); Calcium 8.4 mg/dL (8.4-10.2); Carbon Dioxide 26 mmol/L (22-30); Chloride 100 mmol/L (98-107); Glucose 153 mg/dL (74-99); Non-African American GFR(CKD) >90 (>60 ml/min/1.73 sqM); Potassium 3.3 mmol/L (3.5-5.1); Sodium 133 mmol/L (137-145); Total Bilirubin 0.5 mg/dL (0.2-1.3); Total Protein 5.4 g/dL (6.3-8.2)
[2023-10-27] MEDS ORDERED: ACETAMINOPHEN TAB 325 MG TAB PO PRN (08:16)
[2023-10-27] MEDS ORDERED: ALPRAZolam 0.25 MG TAB PO PRN (08:16)
[2023-10-27] MEDS: lisinopriL 20 MG TAB PO SCH (08:46)
[2023-10-27] MEDS: METOPROLOL TARTRATE 50 MG TAB PO SCH (08:46)
[2023-10-27] MEDS: PARoxetine 10 MG TAB PO SCH (08:47)
[2023-10-27] MEDS: MAGNESIUM OXIDE 400 MG TAB PO SCH (08:47)
[2023-10-27] MEDS: PANTOPRAZOLE 40 MG/10 ML VIAL IV SCH (08:47)
[2023-10-27 11:13] LABS: Glucose,Whole Blood 146 mg/dL (70-110)
[2023-10-27] MEDS: NON FORMULARY DRUG (Mirabegron [Myrbetriq] 50 MG Tab.Er.24h) PO SCH (11:15)
[2023-10-27] MEDS: ENOXAPARIN 40 MG/0.4 ML SYRINGE SQ SCH (11:15)
--- NOTE | 2023-10-27 15:30 | P.HPIM ---
History of Present Illness H&P Date: 10/27/23 Chief Complaint: Increasing lethargy 88-year-old lady with past medical history significant for diabetes, hypertension, hypothyroid poor historian secondary to cognitive impairment presented to the emergency department brought in by family secondary to worsening function History is obtained by patient's son Ermias at the bedside and daughter Peggy. Patient is gradually been becoming more more weak. At baseline can only sometimes recognize family. Lives at off [facility]. Pretty much wheelchair-bound. Recently treated for UTI. Repeat urine was negative. But for last at least couple of weeks patient is poor oral intake. More lethargic. Has they brought her in. Patient herself barely able to give any history. Did eat a small amount earlier today. Review of systems: Patient cannot tell because of dementia and very sleepy right now. Social history: Nonsmoker. No alcohol. Currently lives at [facility]. Does use a wheelchair. Physical examination: VITAL SIGNS: 97.2, 103, 17, 185/94, 94% room air GENERAL: Reclining in bed, lethargic but arousable EYES: Pupils equal. Conjunctiva normal. HEENT: External appearance of nose and ears normal, oral cavity-dry close membrane NECK: JVD unable to assess; masses not palpable. HEART: First and second heart sounds are normal; no edema. LUNGS: Respiratory rate normal; clear to auscultation. ABDOMEN: Soft, nontender, liver spleen not palpable, no masses palpable. PSYCH: Lethargic arousable MUSCULOSKELETAL:No Clubbing/cyanosis;muscles-grossly intact. OA NEUROLOGICAL: No facial asymmetry. Difficult to assess LYMPHATICS: [No lymph nodes palpable in the axilla and neck INVESTIGATIONS, reviewed in the clinical context: October 27, 2023: White count 9.1 hemoglobin 10.3 platelets 305 sodium 133 potassium 3.3 creatinine 0.36 albumin 2.8 EKG tracing personally reviewed by me-sinus rhythm. Right bundle abdoul block. Previous labs from December 2022 2-D echocardiogram: EF 55-60%. Carotid Doppler: No significant stenosis Computed tomography scan brain: Reviewed by neurology. Not felt to be stroke. EEG: Evidence of encephalopathy. No epileptiform activity. Assessment and plan: -Increasing metabolic encephalopathy from likely decreased oral intake/ dehydration -Clinical dehydration. Patient's had poor intake for last 2 weeks. -chronic medical debility, wheelchair-bound -Severe cognitive impairment. late onset Alzheimer's dementia At baseline can barely recognize family members -Hyperlipidemia Lipitor 40 mg daily at bedtime -Likely Ruiz's cyst right popliteal fossa -Primary osteoarthritis multiple joints Tylenol when necessary - B-12 vitamin deficiency Supplement -Essential hypertension Lopressor 50 mg mg twice a day, lisinopril 20 mg twice a day. -Diabetes mellitus type 2 on oral hypoglycemic: Uncontrolled with hyperglycemia Follow Accu-Cheks with sliding scale -Chronic urinary incontinence myrbetriq -Anxiety otherwise specified: Paxil 10 mg day. -DNR- -POA: Son Ermias and Carlos Prognosis guarded. Multiple medical problems aging. Will see how patient does in next 24 hours. Otherwise hospice will be appropriate. Discussed with family at bedside Advance care planning [Oct 27 2023] End-of-life care was discussed with patient's son Ermias and daughters were the bedside. They understand patient is been declining. Understand prognosis guarded. After much questioning deliberation decided to proceed with hospice. Different options were discussed. Ermias inform me that his brother Carlos is already started looking into the same. Let social media marketer pursue the same. CODE STATUS has been made DNR. Patient will be hydrated. Comfort feeding. Time spent about 30 minutes Past Medical History Past Medical History: CVA/TIA, Diabetes Mellitus, GI Bleed, Hypertension, Thyroid Disorder Additional Past Medical History / Comment(s): metabolic encephalopathy History of Any Multi-Drug Resistant Organisms: None Reported Past Surgical History: No Surgical Hx Reported Past Anesthesia/Blood Transfusion Reactions: No Reported Reaction Past Psychological History: No Psychological Hx Reported Smoking Status: Never smoker Past Alcohol Use History: None Reported Past Drug Use History: None Reported Medications and Allergies Home Medications Medication Instructions Recorded Confirmed Type Mirabegron [Myrbetriq] 50 mg PO DAILY@0700 04/24/22 10/26/23 History metFORMIN HCL 1,000 mg PO BID-W/MEALS 04/30/23 10/26/23 History ALPRAZolam [Xanax] 0.125 - 0.25 mg PO HS PRN 10/26/23 10/26/23 History Acetaminophen Tab [Tylenol] 650 mg PO Q4H PRN MDD 10 tabs 10/26/23 10/26/23 History Aspirin 81 mg PO DAILY@0700 24 05/29/24 History Atorvastatin [Lipitor] 80 mg PO HS@189910/26/23 10/26/23 History Cyanocobalamin [Vitamin B-12] 500 mcg PO DAILY@189910/26/23 10/26/23 History Diclofenac Sodium Gel [Voltaren 1% 2 - 4 gm TOPICAL QID PRN MDD 32 10/26/23 10/26/23 History Gel] grams Famotidine [Pepcid] 20 mg PO DAILY@69910/26/23 10/26/23 History Levothyroxine Sodium [Synthroid] 50 mcg PO DAILY@0710/26/23 10/26/23 History Loperamide HCl/Simethicone 1 - 2 tab PO TID PRN MDD 4 tabs 10/26/23 10/26/23 History [Loperamide-Simeth 2-125 mg Tab] Magnesium Oxide [Mag-Ox] 400 mg PO BID@0700,19010/26/23 10/26/23 History Metoprolol Tartrate [Lopressor] 50 mg PO BID-W/MEALS 10/26/23 10/26/23 History PARoxetine [Paxil] 10 mg PO DAILY@0710/26/23 10/26/23 History haloperidoL [Haldol] 1 mg PO BID PRN 10/26/23 10/26/23 History lisinopriL [Zestril] 20 mg PO BID@0700,19010/26/23 10/26/23 History Allergies Allergy/AdvReac Type Severity Reaction Status Date / Time shellfish derived [Shellfish] Allergy Rash/Hives Verified 10/26/23 19:38 Physical Exam Vitals: Vital Signs Temp Pulse Pulse Resp BP BP Pulse Ox 10/27/23 09:00 94 L 10/27/23 08:23 103 H 10/27/23 07:32 97.2 F L 103 H 17 185/94 94 L 10/27/23 00:13 97.6 F 87 15 172/79 94 L 10/26/23 23:00 93 19 162/97 94 L 10/26/23 22:09 94 14 163/86 94 L 10/26/23 20:43 96 18 206/106 96 10/26/23 18:29 79 16 183/88 95 10/26/23 16:57 97.9 F 83 20 197/93 95 Intake and Output 10/26/23 10/27/23 10/27/23 22:59 06:59 14:59 Other: Voiding Method Diaper # Voids 1 Weight 58.967 kg 58.967 kg Results CBC & Chem 7: 10/27/23 05:08 10/27/23 05:08 Labs: Abnormal Lab Results - Last 24 Hours (Table) 10/26/23 10/26/23 10/27/23 Range/Units 17:24 17:24 05:08 Hgb 11.0 L 10.3 L (11.4-16.0) gm/dL Hct 33.9 L 32.6 L (34.0-46.0) % MCV 76.7 L 77.5 L (80.0-100.0) fL MCH 24.4 L (25.0-35.0) pg RDW 19.2 H 19.1 H (11.5-15.5) % Sodium 134 L (137-145) mmol/L Potassium 3.3 L (3.5-5.1) mmol/L BUN 19 H (7-17) mg/dL Creatinine 0.49 L (0.52-1.04) mg/dL Glucose 140 H (74-99) mg/dL Magnesium 1.2 L (1.6-2.3) mg/dL Total Protein 5.5 L (6.3-8.2) g/dL Albumin 3.0 L (3.5-5.0) g/dL 10/27/23 Range/Units 05:08 Hgb (11.4-16.0) gm/dL Hct (34.0-46.0) % MCV (80.0-100.0) fL MCH (25.0-35.0) pg RDW (11.5-15.5) % Sodium 133 L (137-145) mmol/L Potassium 3.3 L (3.5-5.1) mmol/L BUN (7-17) mg/dL Creatinine 0.36 L (0.52-1.04) mg/dL Glucose 153 H (74-99) mg/dL Magnesium (1.6-2.3) mg/dL Total Protein 5.4 L (6.3-8.2) g/dL Albumin 2.8 L (3.5-5.0) g/dL
[2023-10-27 16:11] LABS: Glucose,Whole Blood 132 mg/dL (70-110)
[2023-10-27] MEDS: CYANOCOBALAMIN 500 MCG TAB PO SCH (20:43)
[2023-10-27 21:08] LABS: Glucose,Whole Blood 131 mg/dL (70-110)
[2023-10-28 05:59] LABS: Glucose,Whole Blood 124 mg/dL (70-110)
[2023-10-28] MEDS: LEVOTHYROXINE 50 MCG TAB PO SCH (06:36)
[2023-10-28] MEDS: FAMOTIDINE 20 MG TAB PO SCH (06:36)
[2023-10-28] MEDS: ASPIRIN 81 MG PO SCH (08:27)
[2023-10-28 08:49] VITALS: BP 184/88; PULSE 74; RESP 19; TEMP 98.4
[2023-10-28 11:34] LABS: Glucose,Whole Blood 179 mg/dL (70-110)
--- NOTE | 2023-10-28 17:17 | P.DS ---
Providers Date of admission: 10/26/23 20:18 Expected date of discharge: 10/28/23 Attending physician: Kalia Stevens Primary care physician: Romario [facility] Hospital Course: Chief Complaint: Increasing lethargy 88-year-old lady with past medical history significant for diabetes, hypertension, hypothyroid poor historian secondary to cognitive impairment presented to the emergency department brought in by family secondary to worsening function History is obtained by patient's son Ermias at the bedside and daughter Peggy. Patient is gradually been becoming more more weak. At baseline can only sometimes recognize family. Lives at off [facility] [place] [facility]. Pretty much wheelchair-bound. Recently treated for UTI. Repeat urine was negative. But for last at least couple of weeks patient is poor oral intake. More lethargic. Has they brought her in. Patient herself barely able to give any history. Did eat a small amount earlier today. October 27: Daughter at the bedside. Patient answering some simple questions. Eating some with assistance. Will be discharged to hospice house. Discussed with liaison. Discussed with daughter. Medications reviewed Discussion and discharge planning more than 35 minutes Social history: Nonsmoker. No alcohol. Currently lives at [facility]. Does use a wheelchair. Physical examination: VITAL SIGNS: 3.4, 74, 19, 184/88, 94% GENERAL: Reclining in bed, l but more awake EYES: Pupils equal. Conjunctiva normal. HEENT: External appearance of nose and ears normal, oral cavity-dry close membrane NECK: JVD unable to assess; masses not palpable. HEART: First and second heart sounds are normal; no edema. LUNGS: Respiratory rate normal; clear to auscultation. ABDOMEN: Soft, nontender, liver spleen not palpable, no masses palpable. PSYCH: Answer occasional question MUSCULOSKELETAL:No Clubbing/cyanosis;muscles-grossly intact. OA NEUROLOGICAL: No facial asymmetry. In the limbs INVESTIGATIONS, reviewed in the clinical context: October 27, 2023: White count 9.1 hemoglobin 10.3 platelets 305 sodium 133 potassium 3.3 creatinine 0.36 albumin 2.8 EKG tracing personally reviewed by ny-sinus rhythm. Right bundle abdoul block. Previous labs from December 2022 2-D echocardiogram: EF 55-60%. Carotid Doppler: No significant stenosis Computed tomography scan brain: Reviewed by neurology. Not felt to be stroke. EEG: Evidence of encephalopathy. No epileptiform activity. Assessment and plan: -Increasing metabolic encephalopathy from likely decreased oral intake/dehydration: Some improvement -Clinical dehydration. Patient's had poor intake for last 2 weeks. -chronic medical debility, wheelchair-bound -Severe cognitive impairment. late onset Alzheimer's dementia At baseline can barely recognize family members -Hyperlipidemia Lipitor 40 mg daily at bedtime -Likely Ruiz's cyst right popliteal fossa -Primary osteoarthritis multiple joints Tylenol when necessary - B-12 vitamin deficiency Supplement -Essential hypertension Lopressor 50 mg mg twice a day, lisinopril 20 mg twice a day. -Diabetes mellitus type 2 on oral hypoglycemic: Uncontrolled with hyperglycemia Follow Accu-Cheks with sliding scale -Chronic urinary incontinence myrbetriq -Anxiety otherwise specified: Paxil 10 mg day. -DNR- -POA: Son Ermias and Carlos Advance care planning [Oct 27 2023] End-of-life care was discussed with patient's son Ermias and daughters were the bedside. They understand patient is been declining. Understand prognosis guarded. After much questioning deliberation decided to proceed with hospice. Different options were discussed. Ermias inform me that his brother Carlos is already started looking into the same. Let director of social services pursue the same. CODE STATUS has been made DNR. Patient will be hydrated. Comfort feeding. Time spent about 30 minutes Disposition: Hospice [facility] Past Medical History Past Medical History: CVA/TIA, Diabetes Mellitus, GI Bleed, Hypertension, Thyroid Disorder Additional Past Medical History / Comment(s): metabolic encephalopathy History of Any Multi-Drug Resistant Organisms: None Reported Past Surgical History: No Surgical Hx Reported Past Anesthesia/Blood Transfusion Reactions: No Reported Reaction Past Psychological History: No Psychological Hx Reported Smoking Status: Never smoker Past Alcohol Use History: None Reported Past Drug Use History: None Reported Plan - Discharge Summary Discharge Rx Participant: No New Discharge Prescriptions: New Metoprolol Tartrate [Lopressor] 75 mg PO BID #1 tablet Continue ALPRAZolam [Xanax] 0.125 - 0.25 mg PO HS PRN PRN Reason: sleep Aspirin 81 mg PO DAILY@0700 Diclofenac Sodium Gel [Voltaren 1% Gel] 2 - 4 gm TOPICAL QID PRN MDD 32 grams PRN Reason: Pain haloperidoL [Haldol] 1 mg PO BID PRN PRN Reason: Agitation Levothyroxine Sodium [Synthroid] 50 mcg PO DAILY@0700 lisinopriL [Zestril] 20 mg PO BID@0700,1900 PARoxetine [Paxil] 10 mg PO DAILY@0700 Mirabegron [Myrbetriq] 50 mg PO DAILY@0700 Acetaminophen Tab [Tylenol] 650 mg PO Q4H PRN MDD 10 tabs PRN Reason: Pain Cyanocobalamin [Vitamin B-12] 500 mcg PO DAILY@1900 Famotidine [Pepcid] 20 mg PO DAILY@07 Loperamide HCl/Simethicone [Loperamide-Simeth 2-125 mg Tab] 1 - 2 tab PO TID PRN MDD 4 tabs PRN Reason: Diarrhea Changed Magnesium Oxide [Mag-Ox] 400 mg PO DAILY #0 Discontinued metFORMIN HCL 1,000 mg PO BID-W/MEALS Atorvastatin [Lipitor] 80 mg PO HS@190 Metoprolol Tartrate [Lopressor] 50 mg PO BID-W/MEALS Discharge Medication List Mirabegron [Myrbetriq] 50 mg PO DAILY@0700 04/24/22 [History] ALPRAZolam [Xanax] 0.125 - 0.25 mg PO HS PRN 10/26/23 [History] Acetaminophen Tab [Tylenol] 650 mg PO Q4H PRN MDD 10 tabs 10/26/23 [History] Aspirin 81 mg PO DAILY@0710/26/23 [History] Cyanocobalamin [Vitamin B-12] 500 mcg PO DAILY@1900 10/26/23 [History] Diclofenac Sodium Gel [Voltaren 1% Gel] 2 - 4 gm TOPICAL QID PRN MDD 32 grams 10/26/23 [History] Famotidine [Pepcid] 20 mg PO DAILY@0710/26/23 [History] Levothyroxine Sodium [Synthroid] 50 mcg PO DAILY@0710/26/23 [History] Loperamide HCl/Simethicone [Loperamide-Simeth 2-125 mg Tab] 1 - 2 tab PO TID PRN MDD 4 tabs 10/26/23 [History] PARoxetine [Paxil] 10 mg PO DAILY@0700 10/26/23 [History] haloperidoL [Haldol] 1 mg PO BID PRN 10/26/23 [History] lisinopriL [Zestril] 20 mg PO BID@0700,1900 10/26/23 [History] Magnesium Oxide [Mag-Ox] 400 mg PO DAILY #0 10/28/23 [Rx] Metoprolol Tartrate [Lopressor] 75 mg PO BID #1 tablet 10/28/23 [Rx] Discharge Disposition: DISCH TO [facility]ICE [facility]
== END 2023-10-28 12:43 | disposition hospice, inpatient (51) | DRG 640 ==
LOC: EC 16:51 → 4SSUR 20:18
PROVIDERS: ADMIT Hospitalist; ATTEND Hospitalist
DX: E86.0 Dehydration (principal); G93.41 Metabolic encephalopathy; F02.C4 Dementia in other diseases classified elsewhere, severe, with anxiety; E87.1 Hypo-osmolality and hyponatremia; D64.9 Anemia, unspecified; E83.42 Hypomagnesemia; R53.81 Other malaise; Z66 Do not resuscitate; R62.7 Adult failure to thrive; Z68.22 Body mass index [BMI] 22.0-22.9, adult; R32 Unspecified urinary incontinence; G30.1 Alzheimer's disease with late onset; E78.5 Hyperlipidemia, unspecified; M71.21 Synovial cyst of popliteal space [Baker], right knee; M15.9 Polyosteoarthritis, unspecified; I10 Essential (primary) hypertension; E53.8 Deficiency of other specified B group vitamins; E11.65 Type 2 diabetes mellitus with hyperglycemia; E03.9 Hypothyroidism, unspecified; Z79.899 Other long term (current) drug therapy; Z79.890 Hormone replacement therapy; Z79.84 Long term (current) use of oral hypoglycemic drugs; Z99.3 Dependence on wheelchair; Z87.440 Personal history of urinary (tract) infections; Z79.82 Long term (current) use of aspirin
CPT/HCPCS: 36415; 80053; 83605; 83735; 83880; 84100; 84443; 84484; 85025; 85610; 85730; 93005; 94760; 96361; 96365; 96366; 96375; 99285